=== PATIENT | female | born 1950 | race Caucasian/White ===

== ENCOUNTER 2017-02-24 10:43 | Inpatient (IN) | payer MEDICARE, OTHER ==
[2017-02-24] MEDS ORDERED: SODIUM CHLORIDE 0.9% 1,000 ML IV STA (11:22)
[2017-02-24] MEDS ORDERED: VANCOMYCIN 1,000 MG in SODIUM CHLORIDE 0.9% 250 ML IVPB STA (11:23)
[2017-02-24 11:40] LABS: CH 28.6; HCT 43.9 % (34.0-46.0); HDW 2.33; HGB 14.3 gm/dL (11.4-16.0); Immature Gran Flag Moderate; MCH 29.3 pg (25.0-35.0); MCHC 32.6 g/dL (31.0-37.0); MCV 89.9 fL (80.0-100.0); Mean Platelet Volume 7.5; RBC 4.89 m/uL (3.80-5.40); RDW 14.3 % (11.5-15.5); WBC (Perox) 31.87
[2017-02-24 11:47] LABS: WBC 31.5 k/uL (3.8-10.6)
[2017-02-24 11:50] LABS: ALT 53 U/L (9-52); AST 53 U/L (14-36); Alkaline Phosphatase 181 U/L (38-126); Anion Gap 13 mmol/L; Blood Urea Nitrogen 19 mg/dL (7-17); Calcium 9.3 mg/dL (8.4-10.2); Carbon Dioxide 26 mmol/L (22-30); Chloride 97 mmol/L (98-107); Glucose 106 mg/dL (74-99); Magnesium 1.9 mg/dL (1.6-2.3); Non-African American GFR(MDRD) >60 (>60 ml/min/1.73 sqM); Phosphorous 3.9 mg/dL (2.5-4.5); Potassium 4.6 mmol/L (3.5-5.1); Sodium 136 mmol/L (137-145); Total Bilirubin 0.9 mg/dL (0.2-1.3); Total Protein 7.2 g/dL (6.3-8.2)
--- NOTE | 2017-02-24 11:57 | XR ---
EXAMINATION TYPE: XR chest 1V portable DATE OF EXAM: 02/24/2017 11:46 AM COMPARISON: Prior chest x-ray 07 July 2015 HISTORY: Cough TECHNIQUE: Single frontal view of the chest is obtained. FINDINGS: Similar findings. The heart is enlarged. There is some blunting of the left costophrenic a ngle. No evident pneumothorax. Patient is rotated. IMPRESSION: Similar findings. Cardiomegaly. There may be left lower lobe atelectasis, chronic pleura l reaction, difficult to exclude airspace disease, follow-up PA and lateral chest x-ray may be of prem efit as indicated.
[2017-02-24 12:08] LABS: Add Differential Manual Differential
[2017-02-24 12:11] LABS: INR 1.3 (<1.1); Nucleated Red Blood Cells 0 /100 WBC (0-0); Partial Thromboplastin Time 25.5 sec (22.0-30.0); Prothrombin Time 12.6 sec (9.0-12.0); RBC Morphology Normal; Total Cells Counted 200; Toxic Vacuolation Present
[2017-02-24] MEDS ORDERED: MORPHINE SULFATE 4 MG/ML SYRINGE IVP STA (12:43)
[2017-02-24] MEDS ORDERED: NALOXONE 0.4 MG/ML 1 ML VIAL IV PRN (12:56)
[2017-02-24] MEDS ORDERED: TEMAZEPAM 15 MG CAP PO PRN (12:56)
--- NOTE | 2017-02-24 12:56 | ED ---
Weakness HPI - General Chief complaint: Weakness Stated complaint: Weakness Time Seen by Provider: 02/24/17 11:10 Source: patient, EMS Mode of arrival: EMS - History of Present Illness Initial comments: Patient complains of progressively worsening weakness. She has fevers and chills. She has lightheadedness. She is nonambulatory. She denies any belly or back pain. She has no nausea or vomiting. Nothing makes her symptoms better or worse. She has taken no medications for these. She denies any travel. She denies any injuries. She has no neck pain or stiffness. She has no confusion. - Related Data Home Medications Medication Instructions Recorded Confirmed Baclofen [Baclofen] 10 mg PO TID 04/27/16 02/24/17 Gabapentin [Gabapentin] 600 mg PO TID 04/27/16 02/24/17 Levothyroxine Sodium [Synthroid] 25 mcg PO DAILY 04/27/16 02/24/17 Aspirin 81 mg PO DAILY 02/24/17 02/24/17 Cholecalciferol [Vitamin D3] 1,000 unit PO DAILY 02/24/17 02/24/17 Lactulose 10 gm PO DAILY PRN 02/24/17 02/24/17 Levothyroxine Sodium [Synthroid] 200 mcg PO DAILY 02/24/17 02/24/17 Nortriptyline HCl [Pamelor] 25 mg PO BID 02/24/17 02/24/17 Simvastatin [Zocor] 20 mg PO HS 02/24/17 02/24/17 Trospium Chloride [Sanctura] 20 mg PO BID 02/24/17 02/24/17 clonazePAM [KlonoPIN] 1 - 1.5 mg PO HS 02/24/17 02/24/17 Allergies Allergy/AdvReac Type Severity Reaction Status Date / Time No Known Allergies Allergy Verified 02/24/17 12:03 Review of Systems ROS Statement: Those systems with pertinent positive or pertinent negative responses have been documented in the HPI. ROS Other: All systems not noted in ROS Statement are negative. Past Medical History Past Medical History: Diabetes Mellitus, Deep Vein Thrombosis (DVT), Musculoskeletal Disorder, Thyroid Disorder Additional Past Medical History / Comment(s): HAS MS, USES W/C, UNABLE TO MOVE FROM WAIST DOWN. HX DVT, PE. C/O NEUROPATHY KRYSTIAN FEET. TOLD "BORDERLINE" DM. History of Any Multi-Drug Resistant Organisms: MRSA Date of last positivie culture/infection: 2013 MDRO Source:: UNSURE Past Surgical History: Tubal Ligation Additional Past Surgical History / Comment(s): EYE SURG AGE 6. REPAIR URETER. Past Anesthesia/Blood Transfusion Reactions: No Reported Reaction Past Psychological History: No Psychological Hx Reported Smoking Status: Never smoker Past Alcohol Use History: None Reported Past Drug Use History: None Reported - Past Family History Mother Family Medical History: No Reported History General Exam General appearance: alert, in no apparent distress Head exam: Present: atraumatic, normocephalic, normal inspection Eye exam: Present: normal appearance, PERRL, EOMI. Absent: scleral icterus, conjunctival injection, periorbital swelling ENT exam: Present: normal exam, mucous membranes moist Neck exam: Present: normal inspection. Absent: tenderness, meningismus, lymphadenopathy Cardiovascular Exam: Present: regular rate, normal rhythm, normal heart sounds. Absent: systolic murmur, diastolic murmur, rubs, gallop, clicks GI/Abdominal exam: Present: soft, normal bowel sounds. Absent: distended, tenderness, guarding, rebound, rigid Extremities exam: Present: normal inspection Back exam: Present: CVA tenderness (R) Neurological exam: Present: alert, oriented X3 Psychiatric exam: Present: normal affect Skin exam: Present: warm, dry Course Vital Signs 02/24/17 02/24/17 02/24/17 10:46 11:16 12:35 Temperature 100.4 F H 98.1 F Pulse Rate 110 H 109 H 108 H Respiratory 15 18 18 Rate Blood Pressure 93/45 100/55 112/61 O2 Sat by Pulse 96 97 98 Oximetry EKG Findings - EKG Comments: EKG Findings:: Twelve-lead EKG interpreted by me as showing ventricular 109 bpm , normal MN interval and QRS complex, no ST elevation or depression, interpreted by me as sinus tachycardia. Medical Decision Making - Medical Decision Making Patient presents with fevers, not feeling very well. I will send blood cultures , start antibiotics. Patient will be admitted to the hospital. - Lab Data Result diagrams: 02/24/17 11:14 02/24/17 11:14 Lab Results 02/24/17 02/24/17 02/24/17 Range/Units 11:14 11:14 11:14 WBC 31.5 H* (3.8-10.6) k/uL RBC 4.89 (3.80-5.40) m/uL Hgb 14.3 (11.4-16.0) gm/dL Hct 43.9 (34.0-46.0) % MCV 89.9 (80.0-100.0) fL MCH 29.3 (25.0-35.0) pg MCHC 32.6 (31.0-37.0) g/dL RDW 14.3 (11.5-15.5) % Plt Count 240 (150-450) k/uL Neutrophils % (Manual) 84.0 % Band Neutrophils % 11.0 % Lymphocytes % (Manual) 1.5 % Monocytes % (Manual) 3.0 % Eosinophils % (Manual) 0.5 % Neutrophils # (Manual) 29.9 H (1.3-7.7) k/uL Lymphocytes # (Manual) 0.5 L (1.0-4.8) k/uL Monocytes # (Manual) 0.9 (0-1.0) k/uL Eosinophils # (Manual) 0.2 (0-0.7) k/uL Nucleated RBCs 0 (0-0) /100 WBC Toxic Vacuolation Present RBC Morphology Normal PT (9.0-12.0) sec INR (<1.1) APTT (22.0-30.0) sec Sodium 136 L (137-145) mmol/L Potassium 4.6 (3.5-5.1) mmol/L Chloride 97 L (98-107) mmol/L Carbon Dioxide 26 (22-30) mmol/L Anion Gap 13 mmol/L BUN 19 H (7-17) mg/dL Creatinine 0.85 (0.52-1.04) mg/dL Est GFR (MDRD) Af Amer >60 (>60 ml/min/1.73 sqM) Est GFR (MDRD) Non-Af >60 (>60 ml/min/1.73 sqM) Glucose 106 H (74-99) mg/dL Plasma Lactic Acid Aryan 1.9 (0.7-2.0) mmol/L Calcium 9.3 (8.4-10.2) mg/dL Phosphorus 3.9 (2.5-4.5) mg/dL Magnesium 1.9 (1.6-2.3) mg/dL Total Bilirubin 0.9 (0.2-1.3) mg/dL AST 53 H (14-36) U/L ALT 53 H (9-52) U/L Alkaline Phosphatase 181 H (38-126) U/L Troponin I (0.000-0.034) ng/mL Total Protein 7.2 (6.3-8.2) g/dL Albumin 3.6 (3.5-5.0) g/dL 02/24/17 02/24/17 Range/Units 11:14 11:14 WBC (3.8-10.6) k/uL RBC (3.80-5.40) m/uL Hgb (11.4-16.0) gm/dL Hct (34.0-46.0) % MCV (80.0-100.0) fL MCH (25.0-35.0) pg MCHC (31.0-37.0) g/dL RDW (11.5-15.5) % Plt Count (150-450) k/uL Neutrophils % (Manual) % Band Neutrophils % % Lymphocytes % (Manual) % Monocytes % (Manual) % Eosinophils % (Manual) % Neutrophils # (Manual) (1.3-7.7) k/uL Lymphocytes # (Manual) (1.0-4.8) k/uL Monocytes # (Manual) (0-1.0) k/uL Eosinophils # (Manual) (0-0.7) k/uL Nucleated RBCs (0-0) /100 WBC Toxic Vacuolation RBC Morphology PT 12.6 H (9.0-12.0) sec INR 1.3 (<1.1) APTT 25.5 (22.0-30.0) sec Sodium (137-145) mmol/L Potassium (3.5-5.1) mmol/L Chloride (98-107) mmol/L Carbon Dioxide (22-30) mmol/L Anion Gap mmol/L BUN (7-17) mg/dL Creatinine (0.52-1.04) mg/dL Est GFR (MDRD) Af Amer (>60 ml/min/1.73 sqM) Est GFR (MDRD) Non-Af (>60 ml/min/1.73 sqM) Glucose (74-99) mg/dL Plasma Lactic Acid Aryan (0.7-2.0) mmol/L Calcium (8.4-10.2) mg/dL Phosphorus (2.5-4.5) mg/dL Magnesium (1.6-2.3) mg/dL Total Bilirubin (0.2-1.3) mg/dL AST (14-36) U/L ALT (9-52) U/L Alkaline Phosphatase (38-126) U/L Troponin I <0.012 (0.000-0.034) ng/mL Total Protein (6.3-8.2) g/dL Albumin (3.5-5.0) g/dL Disposition Clinical Impression: Sepsis Disposition: ADMITTED IP TO THIS HOSP Condition: Serious Time of Disposition: 12:56
[2017-02-24 13:09] LABS: Appearance,Urine Turbid (Clear); Bacteria,Urine Few /hpf; Bilirubin,Urine Negative (Negative); Glucose,Urine (UA) Negative (Negative); Ketones,Urine 1+ (Negative); Leukocyte Esterase,Urine Large (Negative); Mucus,Urine Few /hpf; Nitrite,Urine Positive (Negative); Protein,Urine Trace (Negative); RBC,Urine 24 /hpf (0-5); Squamous Epithelial Cell,Urine 1 /hpf (0-4); UA Billing (MACRO vs. MICRO) MICRO; Urobilinogen,Urine <2.0 mg/dL (<2.0); WBC,Urine >182 /hpf (0-5)
[2017-02-24] MEDS: MORPHINE SULFATE 4 MG/ML SYRINGE IV PRN ×2 (14:51→21:34)
[2017-02-24] MEDS: BACLOFEN 10 MG TAB PO SCH ×2 (14:51→21:05)
[2017-02-24] MEDS: GABAPENTIN 300 MG CAP PO SCH ×2 (14:51→21:05)
[2017-02-24 16:02] VITALS: BMI 50.7
--- NOTE | 2017-02-24 16:56 | P.HPIM ---
History of Present Illness H&P Date: 02/24/17 Chief Complaint: Sepsis, UTI, left lower lobe pneumonia, MS with worsening symptoms 66-year-old female [address] Patterson[address] patient with history of obesity, multiple sclerosis with debility, recurrent kidney stone,'s post suprapubic catheter done by Dr. Gonsales last year, history of hypothyroidism and borderline diabetes who presented to the emergency department today 02/24/2017 complaining of fever chills severe generalized weakness and not feeling well with slightly bit worsening discomfort in the left upper quadrant area with significant shortness of breath with deep inspiration. Workup in the emergency room showed chest x-ray consistent with finding of consolidation and atelectasis in the left base, also urine test was slightly bit positive and surprisingly her white blood cell were over 32,000. Patient was diagnosed with sepsis/UTI and pneumonia with start gram-negative coverage and admit patient to the hospital with above problem. Review of Systems Constitutional: Reports chronic pain, Reports fatigue, Reports lethargy, Reports poor appetite, Reports weight gain, Denies as per HPI, Denies chills, Denies chronic headaches, Denies daytime sleepiness, Denies fever, Denies malaise, Denies night sweats, Denies sweats, Denies weakness, Denies weight loss Eyes: bilateral as per HPI, bilateral blurred vision Ears: bilateral: decreased hearing Ears, nose, mouth and throat: Reports ant. neck pain, Reports nasal congestion, Reports nasal discharge, Reports sinus pressure, Reports swelling in mouth, Denies as per HPI, Denies bleeding gums, Denies dental pain, Denies dysphagia, Denies epistaxis, Denies headache, Denies hoarseness, Denies mouth pain, Denies neck fullness/pressure, Denies neck lump, Denies nose pain, Denies odynophagia, Denies post-nasal drip, Denies sinus pain, Denies swelling in throat, Denies sore throat, Denies vertigo, Denies voice changes Breasts: bilateral: as per HPI Cardiovascular: Reports chest pain, Reports dyspnea on exertion, Reports edema, Reports irregular heart beat, Reports leg edema, Reports orthopnea, Reports palpitations, Reports shortness of breath, Denies as per HPI, Denies claudication, Denies decreased exercise tolerance, Denies high blood pressure, Denies lightheadedness, Denies paroxysmal nocturnal dyspnea, Denies phlebitis, Denies rapid heart beat, Denies syncope Respiratory: Reports congestion, Reports cough, Reports dyspnea, Denies as per HPI, Denies cough with sputum, Denies excessive sputum, Denies hemoptysis, Denies home oxygen, Denies pain, Denies pain on inspiration, Denies pleurisy, Denies respiratory infections, Denies sleep apnea, Denies snoring, Denies wheezing Gastrointestinal: Reports abdominal pain, Reports bloating, Reports constipation , Reports dyspepsia, Reports indigestion, Reports nausea, Denies as per HPI, Denies belching, Denies BRBPR, Denies change in bowel habits, Denies coffee ground emesis, Denies diarrhea, Denies early satiety, Denies excessive gas, Denies heartburn, Denies hematemesis, Denies hematochezia, Denies jaundice, Denies lactose intolerance, Denies loss of appetite, Denies melena, Denies vomiting Genitourinary: Reports dysuria, Reports kidney stones, Reports pelvic pain, Reports stress incontinence, Reports urgency, Reports urinary frequency, Denies as per HPI, Denies abnormal vaginal bleeding, Denies decreased libido, Denies difficulty conceiving, Denies difficulty voiding, Denies dysmenorrhea, Denies dyspareunia, Denies flank pain, Denies genital sores, Denies hematuria, Denies hot flashes, Denies incomplete emptying, Denies menorrhagia, Denies mixed incontinence, Denies nocturia, Denies post void dribbling, Denies , Denies prolapse symptoms, Denies urge incontinence, Denies vaginal discharge, Denies vaginal dryness, Denies vaginal itching, Denies vaginal odor Musculoskeletal: Reports arm numbness/tingling, Reports loss of height, Reports low back pain, Reports muscle cramps, Reports myalgias, Reports neck pain, Denies as per HPI, Denies atrophy, Denies fractures, Denies frequent falls, Denies gait dysfunction, Denies hot joints, Denies leg numbness/tingling, Denies limitation of motion, Denies morning stiffness, Denies muscle weakness, Denies neck stiffness, Denies prior amputations, Denies redness of joints, Denies shooting arm pain, Denies shooting leg pain Musculoskeletal: bilateral: ankle pain, ankle stiffness Integumentary: Reports pruritus, Reports rash, Reports sores, Denies as per HPI , Denies acne, Denies boils, Denies brittle nails, Denies change in hair/nails, Denies color changes, Denies darkening of skin, Denies depigmentation, Denies dryness, Denies foot/leg ulcers, Denies growths, Denies hirsutism, Denies lesions, Denies onychomycosis, Denies striae, Denies unusual bruising, Denies wounds Neurological: Reports balance difficulties, Reports burning pain, Reports confusion, Reports gait dysfunction, Reports hearing difficulties, Reports lack of coordination, Reports memory loss, Reports motor disturbance, Reports numbness, Reports paresthesias, Reports spasticity, Reports tingling, Reports transient paralysis, Reports tremors, Reports weakness, Denies as per HPI, Denies aphasia, Denies ataxia, Denies change in mentation, Denies change in smell/taste, Denies change in speech, Denies convulsions, Denies double vision, Denies head injury, Denies headaches, Denies loss of vision, Denies migraines, Denies paralysis, Denies seizures, Denies sensory deficit, Denies syncope, Denies tic, Denies vertigo, Denies visual changes Psychiatric: Reports anhedonia, Reports anxiety, Reports depression, Reports mood swings, Reports sadness/tearfulness, Denies as per HPI, Denies anxiety attacks, Denies change in appetite, Denies change in libido, Denies change in sleep habits, Denies confusion, Denies difficulty concentrating, Denies disorientation, Denies hallucinations, Denies hopelessness, Denies hypersomnia, Denies insomnia, Denies irritability, Denies memory loss, Denies paranoia, Denies sleep disturbances, Denies suicidal ideation Endocrine: Reports cold intolerance, Reports fatigue, Reports flushing, Reports nocturia, Reports palpitations, Denies as per HPI, Denies deepening of the voice , Denies excessive sweating, Denies excessive thirst, Denies heat intolerance, Denies high blood sugars, Denies increase in ring/shoe/hat size, Denies low blood sugars, Denies polydipsia, Denies polyphagia, Denies polyuria, Denies proptosis, Denies recent glucocorticoid use, Denies thyroid mass, Denies weight change Hematologic/Lymphatic: Reports easy bruising, Denies as per HPI, Denies easy bleeding, Denies lymphadenopathy, Denies lymphedema, Denies thrombophilia Allergic/Immunologic: Reports allergic rhinitis, Denies as per HPI, Denies anaphylaxis, Denies angioedema, Denies gluten intolerance, Denies persistent infections, Denies seasonal allergies, Denies urticaria, Denies wheezing Past Medical History Past Medical History: Diabetes Mellitus, Deep Vein Thrombosis (DVT), Hyperlipidemia, Hypertension, Musculoskeletal Disorder, Neurologic Disorder, Thyroid Disorder Additional Past Medical History / Comment(s): Multiple sclerosis (diagnosed late ), L sided weakness with L hand contracture and unable to move bilateral lower extremities (tita lift to wheelchair), 2007 suprapubic catheter , currently being tx for bilateral buttock decubs with meihoney and dressings, UTIs, "border line DM", hypothyroid, bladder stones, bilateral cataracts. History of Any Multi-Drug Resistant Organisms: MRSA Date of last positivie culture/infection: 2011 MDRO Source:: Urine Past Surgical History: Bladder Surgery, Orthopedic Surgery, Tubal Ligation Additional Past Surgical History / Comment(s): EYE SURG AGE 6 for strabismus, ureteral surgery, cysto/lithotripsey, suprapubic catheter insertion, bilateral carpal releases, L leg eric d/t fx, L thumb sx, benign lesion removed from nose. Past Anesthesia/Blood Transfusion Reactions: No Reported Reaction Past Psychological History: No Psychological Hx Reported Smoking Status: Never smoker Past Alcohol Use History: None Reported Past Drug Use History: None Reported - Past Family History Mother Family Medical History: Hypertension Father Family Medical History: Coronary Artery Disease (CAD), Diabetes Mellitus Medications and Allergies Home Medications Medication Instructions Recorded Confirmed Type Baclofen [Baclofen] 10 mg PO TID 04/27/16 02/24/17 History Gabapentin [Gabapentin] 600 mg PO TID 04/27/16 02/24/17 History Levothyroxine Sodium [Synthroid] 25 mcg PO DAILY 04/27/16 02/24/17 History Aspirin 81 mg PO DAILY 02/24/17 02/24/17 History Cholecalciferol [Vitamin D3] 1,000 unit PO DAILY 02/24/17 02/24/17 History Lactulose 10 gm PO DAILY PRN 02/24/17 02/24/17 History Levothyroxine Sodium [Synthroid] 200 mcg PO DAILY 02/24/17 02/24/17 History Nortriptyline HCl [Pamelor] 25 mg PO BID 02/24/17 02/24/17 History Simvastatin [Zocor] 20 mg PO HS 02/24/17 02/24/17 History Trospium Chloride [Sanctura] 20 mg PO BID 02/24/17 02/24/17 History clonazePAM [KlonoPIN] 1 - 1.5 mg PO HS 02/24/17 02/24/17 History Allergies Allergy/AdvReac Type Severity Reaction Status Date / Time No Known Allergies Allergy Verified 02/24/17 12:03 Physical Exam Vitals: Vital Signs Pulse Resp BP Pulse Ox 02/24/17 13:09 111 H 18 111/59 98 - Constitutional General appearance: no average body habitus, cooperative, disheveled, no mild distress, morbidly obese, no acute distress, no obese, no severe distress, no thin - EENT Eyes: no abnormal pupil, no anicteric sclerae, no disc margins sharp, no edentulous, no EOMI, no PERRLA, no fundus normal, no photophobia, no dentition normal, no poor dentition, no ptosis, scleral icterus, normal appearance ENT: hard of hearing, no hearing grossly normal, no NA/AT, normal oropharynx, no other, pharyngeal erythema, no thrush, no tonsillar exudates, no tonsillar swelling Ears: bilateral: normal, bulging - Neck Neck: no lymphadenopathy, normal ROM, no other, no rigidity, no stridor, no thyromegaly Carotids: bilateral: upstroke normal, upstroke delayed Thyroid: bilateral: normal size, enlarged - Respiratory Respiratory: left: rales, bilateral: CTA, diminished, dullness, wheezing - Cardiovascular Rhythm: regular Heart sounds: normal: S1, S2 Abnormal Heart Sounds: systolic murmur, S3 Gallop - Gastrointestinal General gastrointestinal: no absent bowel sounds, decreased bowel sounds, distended, no hepatomegaly, no hyperactive bowel sounds, no normal bowel sounds , no organomegaly, no rigid, scaphoid, soft, no splenomegaly, no tenderness, no umbilical hernia, no ventral hernia - Integumentary Integumentary: no calor, no cellulitis, no cyanotic, decreased turgor, no flushed, no jaundiced, normal, no normal turgor, pale, rash, no ulcer - Neurologic She is alert oriented had significant weakness in lower extremity mild contraction in the upper extremity with generalized weakness strength is only 2 out of 5. Not been able to ambulate and walk Neurologic: CNII-XII intact - Musculoskeletal Severe weakness in the lower extremity the upper extremity is less weakness more in the right than the left. - Psychiatric Psychiatric: appropriate affect Results CBC & Chem 7: 02/24/17 11:14 02/24/17 11:14 Thrombosis Risk Factor Assmnt - DVT/VTE Prophylaxis DVT/VTE Prophylaxis: Pharmacologic Prophylaxis ordered, Mechanical Prophylaxis ordered - Choose All That Apply Any of the Below Risk Factors Present?: Yes Each Factor Represents 1 point: Medical pt on bed rest, Obesity (BMI >25) Other Risk Factors: Yes Each Risk Factor Represents 2 Points: Age 61-74 years Each Risk Factor Represents 3 Points: History of DVT/PE Other congenital or acquired thrombophilia - If yes, enter type in comment: No Thrombosis Risk Factor Assessment Total Risk Factor Score: 7 Thrombosis Risk Factor Assessment Level: High Risk Assessment and Plan Plan: 1 sepsis: Source most likely urinary tract infection and pneumonia will cover patient with gram-negative coverage product like Levaquin with or without Zosyn. 2 left lower lobe pneumonia: Patient be on antibiotics, continue updraft treatment, continue O2. 3 UTI/sepsis: Patient had suprapubic catheter will do empiric antibiotic with Levaquin awaiting for the final culture before changing antibiotics. 4 severe leukocytosis: Mostly leukemoid reaction secondary to sepsis and infection try to treat underlying disease and repeat CBC daily in the next 3 days. 5 MS: Patient has been seen urology regular basis she had significant weakness in lower extremity continue patient on baclofen along with gabapentin. 6 hypothyroidism: Continue patient on levothyroxine. 7 hyperlipidemia: Patient will continue on simvastatin. 8 restless leg syndrome: Remain on clonazepam. 9 DVT prophylaxis: Patient be on heparin subcutaneous. 10 GI prophylaxis: Patient will be on Pepcid daily. CODE STATUS: Full code. Expectation from this admission: Patient in the hospital for more than 2 nights.
[2017-02-24] MEDS: ATORVASTATIN 10 MG TAB PO SCH (20:54)
[2017-02-24] MEDS: NORTRIPTYLINE 25 MG CAP PO SCH (20:54)
[2017-02-24] MEDS: ACETAMINOPHEN TAB 325 MG TAB PO PRN (22:37)
[2017-02-24] MEDS: LEVOFLOXACIN 500MG-D5W PMX 500 MG in DEXTROSE/WATER 1 100ML.BAG IVPB SCH (22:37)
[2017-02-25] MEDS: LEVOTHYROXINE 100 MCG TAB PO SCH (05:34)
[2017-02-25] MEDS: LEVOTHYROXINE 25 MCG TAB PO SCH (05:34)
[2017-02-25 07:23] LABS: Glucose,Whole Blood 91 mg/dL (75-99)
[2017-02-25] MEDS: GABAPENTIN 300 MG CAP PO SCH ×3 (08:29→21:02)
[2017-02-25] MEDS: NORTRIPTYLINE 25 MG CAP PO SCH ×2 (08:29→21:02)
[2017-02-25] MEDS: ASPIRIN 81 MG CHEW PO SCH (08:29)
[2017-02-25] MEDS: BACLOFEN 10 MG TAB PO SCH ×4 (08:31→22:20)
[2017-02-25] MEDS: ACETAMINOPHEN TAB 325 MG TAB PO PRN (09:46)
--- NOTE | 2017-02-25 10:46 | CDI ---
In responding to this query, please exercise your independent professional judgment. The [facility] Coding Staff and Clinical Documentation Specialists appreciate your assistance in clarifying documentation, maintaining compliance with coding guidelines, accurately documenting patients condition and capturing severity of illness. The fact that a question is asked does not imply that any particular answer is desired or expected. Communication forms are a method of clarifying documentation and are not made part of the Legal Health Record. Thank you in advance for your clarification. Last Revision, September 2015 Jyothi Rosales [address] [facility] [place] [address] Documentation Clarification Form Date: 02/25/2017 10:33:00 AM From: Elan Clinton, RN, BSN, CDI Admit Date: 02/24/2017 12:58:00 PM Patient Name: Maribel Leong Visit Number: [id number] Dr. Shakeel Israel: A pressure ulcer was documented in the nursing documentation. History/Risk Factors: 66 yo female with a history of MS, diabetes and morbid obesity Clinical Indicators: Per nursing, patient has a stage II pressure of the left upper posterior thigh Wound description: 0.1x1 cm, 51-75% granulation amount with distinct wound margins. Treatment: Hydrocolloid dressing changes In your professional opinion, can you please clarify the diagnosis, location, laterality and whether present on admission (POA): Elements for accurate and compliant documentation of an ulcer: * The location/laterality of the ulcer * Etiology (decubitus/pressure, diabetic, PVD) * If the ulcer was present at admission (POA) or occurred after admission Please document in your progress notes and discharge summary in order to capture severity of illness and risk of mortality. Include clinical findings that support your diagnosis. FYI: Press F11 to launch patient chart. Place X here if this finding has no clinical significance, is not applicable or if you are not able to provide any additional documentation. MTDD
--- NOTE | 2017-02-25 10:56 | CDI ---
In responding to this query, please exercise your independent professional judgment. The [facility] Coding Staff and Clinical Documentation Specialists appreciate your assistance in clarifying documentation, maintaining compliance with coding guidelines, accurately documenting patients condition and capturing severity of illness. The fact that a question is asked does not imply that any particular answer is desired or expected. Communication forms are a method of clarifying documentation and are not made part of the Legal Health Record. Thank you in advance for your clarification. Last Revision, September 2015 Jyothi Rosales [address] [facility] [place] [address] Documentation Clarification Form Date: 02/25/2017 10:48:00 AM From: Elan Clinton, RN, BSN, CDI Admit Date: 02/24/2017 12:58:00 PM Patient Name: Maribel Leong Visit Number: [id number] Dr. Shakeel Israel: A diagnosis of UTI has been documented in the ED impressions and H&P. History/Risk factors: 66 yo female with a history of MS, morbid obesity and frequent kidneys stones, currently being treated for sepsis with PNA and UTI Per documentation in the nursing notes, this patient was admitted with a suprapubic catheter. Clinical Indicators: Urinalysis: +nitrates, large leuk esterase, >182 WBC, few WBC clumps, few bacteria, "turbid yellow" in appearance Urine culture: pending Lab results: WBC: 31.5 Treatment: Vanco, Levaquin, 1L fluid bolus In your professional opinion, can you please clarify the etiology of the UTI, if known? Suprapubic catheter UTI not related to catheter/urostomy Other condition, please specify Unable to determine If an infective organism is present, please specify cause and effect relationship if applicable. Please document in your progress notes and discharge summary in order to capture severity of illness and risk of mortality. Include clinical findings that support your diagnosis. FYI: Press F11 to launch patient chart Place X here if this finding has no clinical significance, is not applicable or if you are not able to provide any additional documentation. SID
[2017-02-25] MEDS: CHOLECALCIFEROL 1,000 UNIT TAB PO SCH (11:09)
[2017-02-25] MEDS: SODIUM CHLORIDE 0.9% 1,000 ML IV SCH (11:15)
[2017-02-25 11:34] LABS: Basophils # (A) 0.1 k/uL (0-0.2); Basophils % (A) 0 %; CH 28.6; CHCM 32.1; Eosinophils # (A) 0.1 k/uL (0-0.7); Eosinophils % (A) 1 %; HCT 37.3 % (34.0-46.0); HDW 2.39; HGB 11.9 gm/dL (11.4-16.0); Luc # (Auto) 0.28; Luc % (Auto) 2; Lymphocytes # (A) 0.5 k/uL (1.0-4.8); Lymphocytes % (A) 3 %; MCH 28.7 pg (25.0-35.0); MCV 89.7 fL (80.0-100.0); Mean Platelet Volume 7.9; Monocytes # (A) 0.7 k/uL (0-1.0); Monocytes % (A) 4 %; Neutrophils # (A) 15.4 k/uL (1.3-7.7); Neutrophils % (A) 90 %; RBC 4.16 m/uL (3.80-5.40); RDW 14.3 % (11.5-15.5); WBC (Perox) 18.56
[2017-02-25 11:48] LABS: ALT 38 U/L (9-52); AST 34 U/L (14-36); Alkaline Phosphatase 140 U/L (38-126); Anion Gap 10 mmol/L; Blood Urea Nitrogen 19 mg/dL (7-17); Calcium 8.2 mg/dL (8.4-10.2); Carbon Dioxide 23 mmol/L (22-30); Chloride 101 mmol/L (98-107); Glucose 147 mg/dL (74-99); Non-African American GFR(MDRD) >60 (>60 ml/min/1.73 sqM); Potassium 3.6 mmol/L (3.5-5.1); Sodium 134 mmol/L (137-145); Total Bilirubin 0.6 mg/dL (0.2-1.3); Total Protein 5.6 g/dL (6.3-8.2)
[2017-02-25] MEDS: LACTULOSE 20 GM/30 ML CUP PO PRN (15:07)
--- NOTE | 2017-02-25 15:44 | P.CONS ---
History of Present Illness - Reason for Consult Consult date: 02/25/17 Sepsis, UTI, pneumonia - History of Present Illness This is a 66-year-old female with a past medical history significant for as. She had a suprapubic catheter placed by Dr. Gonsales for neurogenic bladder. Patient presented to [facility] emergency center due to increasing weakness, fever chills, lightheadedness. She had leukocytosis of 31.5 and temperature max of 101.2. Urinalysis was turbid, blood moderate, nitrate positive, leukoesterase large, WBCs greater than 182, WBC clumps few. Troponin was negative. Albumin 3.6. Liver function tests mildly elevated with AST of 53, ALT 53, alkaline phosphatase 181. Urine culture is in progress and blood culture is showing gram-negative bacilli. Chest x-ray shows cardiomegaly with left lower lobe atelectasis, chronic pleural reaction, difficult to exclude airspace disease. [facility] and was started on IV antibiotics in the form of Levaquin and she received 1 dose of vancomycin. She continues to be afebrile and repeat blood cultures were obtained. She also has change in mental status worse from yesterday. History is being obtained from the patient's chart and nursing. Patient also presented to the hospital with a stage II decubitus ulcer to the left buttocks and left gluteal fold. Review of Systems ROS unobtainable: due to mental status Constitutional: Reports chills, Reports fever Past Medical History Past Medical History: Diabetes Mellitus, Deep Vein Thrombosis (DVT), Hyperlipidemia, Hypertension, Musculoskeletal Disorder, Neurologic Disorder, Thyroid Disorder Additional Past Medical History / Comment(s): Multiple sclerosis (diagnosed late ), L sided weakness with L hand contracture and unable to move bilateral lower extremities (tita lift to wheelchair), 2007 suprapubic catheter , currently being tx for bilateral buttock decubs with meihoney and dressings, UTIs, "border line DM", hypothyroid, bladder stones, bilateral cataracts. History of Any Multi-Drug Resistant Organisms: MRSA Year Discovered:: 2011 MDRO Source:: Urine Past Surgical History: Bladder Surgery, Orthopedic Surgery, Tubal Ligation Additional Past Surgical History / Comment(s): EYE SURG AGE 6 for strabismus, ureteral surgery, cysto/lithotripsey, suprapubic catheter insertion, bilateral carpal releases, L leg eric d/t fx, L thumb sx, benign lesion removed from nose. Past Anesthesia/Blood Transfusion Reactions: No Reported Reaction Past Psychological History: No Psychological Hx Reported Smoking Status: Never smoker Past Alcohol Use History: None Reported Past Drug Use History: None Reported - Past Family History Mother Family Medical History: Hypertension Father Family Medical History: Coronary Artery Disease (CAD), Diabetes Mellitus Medications and Allergies Home Medications Medication Instructions Recorded Confirmed Type Baclofen [Baclofen] 10 mg PO TID 04/27/16 02/24/17 History Gabapentin [Gabapentin] 600 mg PO TID 04/27/16 02/24/17 History Levothyroxine Sodium [Synthroid] 25 mcg PO DAILY 04/27/16 02/24/17 History Aspirin 81 mg PO DAILY 02/24/17 02/24/17 History Cholecalciferol [Vitamin D3] 1,000 unit PO DAILY 02/24/17 02/24/17 History Lactulose 10 gm PO DAILY PRN 02/24/17 02/24/17 History Levothyroxine Sodium [Synthroid] 200 mcg PO DAILY 02/24/17 02/24/17 History Nortriptyline HCl [Pamelor] 25 mg PO BID 02/24/17 02/24/17 History Simvastatin [Zocor] 20 mg PO HS 02/24/17 02/24/17 History Trospium Chloride [Sanctura] 20 mg PO BID 02/24/17 02/24/17 History clonazePAM [KlonoPIN] 1 - 1.5 mg PO HS 02/24/17 02/24/17 History Allergies Allergy/AdvReac Type Severity Reaction Status Date / Time No Known Allergies Allergy Verified 02/24/17 12:03 Physical Exam Vitals: Vital Signs Temp Pulse Resp BP Pulse Ox 02/25/17 11:08 99.0 F 02/25/17 09:34 101.2 F H 02/25/17 08:00 20 02/25/17 07:00 99.1 F 133 H 20 138/72 93 L 02/24/17 23:46 99 F 90 02/24/17 21:40 101.2 F H 101 H 18 138/72 95 Intake and Output 02/25/17 02/25/17 02/25/17 06:59 14:59 22:59 Intake Total 200 Output Total 700 700 Balance -500 -700 Intake: Oral 200 Output: Urine 700 700 Other: Weight 136.078 kg Patient Weight 02/26/17 06:59 Weight 136.078 kg Gen: This is a 66-year-old morbidly obese female. She is sleeping in bed but arouses to verbal stimuli. She is quite confused today. HEENT: Head is atraumatic, normocephalic. Pupils equal, round. Sclerae is anicteric. NECK: Supple. No JVD. No lymphadenopathy. No thyromegaly. LUNGS: Diminished bilaterally. No intercostal retractions. HEART: Regular rate and rhythm. Systolic murmur. ABDOMEN: Soft. Bowel sounds are present. No masses. No tenderness. Suprapubic catheter in place draining clear urine with noted sediment. Stage II decubitus ulcer to the left buttocks and left gluteal fold. EXTREMITIES: 1+ pedal edema. No calf tenderness. NEUROLOGICAL: Patient is awake, alert and oriented x1. Significant weakness to the upper and lower extremities. Minimal movement of the right arm. Results Results: Laboratory Results WBC 17.0 k/uL (3.8-10.6) H 02/25/17 11:22 RBC 4.16 m/uL (3.80-5.40) 02/25/17 11:22 Hgb 11.9 gm/dL (11.4-16.0) 02/25/17 11:22 Hct 37.3 % (34.0-46.0) 02/25/17 11:22 MCV 89.7 fL (80.0-100.0) 02/25/17 11:22 MCH 28.7 pg (25.0-35.0) 02/25/17 11:22 MCHC 32.0 g/dL (31.0-37.0) 02/25/17 11:22 RDW 14.3 % (11.5-15.5) 02/25/17 11:22 Plt Count 171 k/uL (150-450) 02/25/17 11:22 Neutrophils % 90 % 02/25/17 11:22 Neutrophils % (Manual) 84.0 % 02/24/17 11:14 Band Neutrophils % 11.0 % 02/24/17 11:14 Lymphocytes % 3 % 02/25/17 11:22 Lymphocytes % (Manual) 1.5 % 02/24/17 11:14 Monocytes % 4 % 02/25/17 11:22 Monocytes % (Manual) 3.0 % 02/24/17 11:14 Eosinophils % 1 % 02/25/17 11:22 Eosinophils % (Manual) 0.5 % 02/24/17 11:14 Basophils % 0 % 02/25/17 11:22 Neutrophils # 15.4 k/uL (1.3-7.7) H 02/25/17 11:22 Neutrophils # (Manual) 29.9 k/uL (1.3-7.7) H 02/24/17 11:14 Lymphocytes # 0.5 k/uL (1.0-4.8) L 02/25/17 11:22 Lymphocytes # (Manual) 0.5 k/uL (1.0-4.8) L 02/24/17 11:14 Monocytes # 0.7 k/uL (0-1.0) 02/25/17 11:22 Monocytes # (Manual) 0.9 k/uL (0-1.0) 02/24/17 11:14 Eosinophils # 0.1 k/uL (0-0.7) 02/25/17 11:22 Eosinophils # (Manual) 0.2 k/uL (0-0.7) 02/24/17 11:14 Basophils # 0.1 k/uL (0-0.2) 02/25/17 11:22 Nucleated RBCs 0 /100 WBC (0-0) 02/24/17 11:14 Toxic Vacuolation Present 02/24/17 11:14 RBC Morphology Normal 02/24/17 11:14 PT 12.6 sec (9.0-12.0) H 02/24/17 11:14 INR 1.3 (<1.1) 02/24/17 11:14 APTT 25.5 sec (22.0-30.0) 02/24/17 11:14 Sodium 134 mmol/L (137-145) L 02/25/17 11:22 Potassium 3.6 mmol/L (3.5-5.1) 02/25/17 11:22 Chloride 101 mmol/L (98-107) 02/25/17 11:22 Carbon Dioxide 23 mmol/L (22-30) 02/25/17 11:22 Anion Gap 10 mmol/L 02/25/17 11:22 BUN 19 mg/dL (7-17) H 02/25/17 11:22 Creatinine 0.84 mg/dL (0.52-1.04) 02/25/17 11:22 Est GFR (MDRD) Af Amer >60 (>60 ml/min/1.73 sqM) 02/25/17 11:22 Est GFR (MDRD) Non-Af >60 (>60 ml/min/1.73 sqM) 02/25/17 11:22 Glucose 147 mg/dL (74-99) H 02/25/17 11:22 POC Glucose (mg/dL) 91 mg/dL (75-99) 02/25/17 07:21 POC Glu Circular Shear Operator ID [place] 02/25/17 07:21 Plasma Lactic Acid Aryan 1.9 mmol/L (0.7-2.0) 02/24/17 11:14 Calcium 8.2 mg/dL (8.4-10.2) L 02/25/17 11:22 Phosphorus 3.9 mg/dL (2.5-4.5) 02/24/17 11:14 Magnesium 1.9 mg/dL (1.6-2.3) 02/24/17 11:14 Total Bilirubin 0.6 mg/dL (0.2-1.3) 02/25/17 11:22 AST 34 U/L (14-36) 02/25/17 11:22 ALT 38 U/L (9-52) 02/25/17 11:22 Alkaline Phosphatase 140 U/L (38-126) H 02/25/17 11:22 Troponin I <0.012 ng/mL (0.000-0.034) 02/24/17 11:14 Total Protein 5.6 g/dL (6.3-8.2) L 02/25/17 11:22 Albumin 2.5 g/dL (3.5-5.0) L 02/25/17 11:22 Urine Color Yellow 02/24/17 12:50 Urine Appearance Turbid (Clear) H 02/24/17 12:50 Urine pH 5.0 (5.0-8.0) 02/24/17 12:50 Ur Specific [place] 1.010 (1.001-1.035) 02/24/17 12:50 Urine Protein Trace (Negative) H 02/24/17 12:50 Urine Glucose (UA) Negative (Negative) 02/24/17 12:50 Urine Ketones 1+ (Negative) H 02/24/17 12:50 Urine Blood Moderate (Negative) H 02/24/17 12:50 Urine Nitrite Positive (Negative) H 02/24/17 12:50 Urine Bilirubin Negative (Negative) 02/24/17 12:50 Urine Urobilinogen <2.0 mg/dL (<2.0) 02/24/17 12:50 Ur Leukocyte Esterase Large (Negative) H 02/24/17 12:50 Urine RBC 24 /hpf (0-5) H 02/24/17 12:50 Urine WBC >182 /hpf (0-5) H 02/24/17 12:50 Urine WBC Clumps Few /hpf (None) H 02/24/17 12:50 Ur Squamous Epith Cells 1 /hpf (0-4) 02/24/17 12:50 Urine Bacteria Few /hpf (None) H 02/24/17 12:50 Urine Mucus Few /hpf (None) H 02/24/17 12:50 CBC & Chem 7: 02/25/17 11:22 02/25/17 11:22 Labs: Abnormal Lab Results - Last 24 Hours (Table) 02/25/17 02/25/17 Range/Units 11:22 11:22 WBC 17.0 H (3.8-10.6) k/uL Neutrophils # 15.4 H (1.3-7.7) k/uL Lymphocytes # 0.5 L (1.0-4.8) k/uL Sodium 134 L (137-145) mmol/L BUN 19 H (7-17) mg/dL Glucose 147 H (74-99) mg/dL Calcium 8.2 L (8.4-10.2) mg/dL Alkaline Phosphatase 140 H (38-126) U/L Total Protein 5.6 L (6.3-8.2) g/dL Albumin 2.5 L (3.5-5.0) g/dL Assessment and Plan Plan: This is a 66-year-old female who presented to the hospital with sepsis , septicemia with gram-negative bacteremia most likely due to suprapubic catheter associated urinary tract infection with concern for possible pneumonia. She also presented with decubitus ulcer to the left buttocks and left gluteal fold. Local wound care will be addressed. Patient is currently on Levaquin. Urine culture is in process. Repeat blood cultures were obtained today. Continue supportive care. Further recommendations as patient progresses. The above dictated assessment and findings were discussed with Dr. Hargrove. The impression and plan of care have been directed as dictated. Mónica Smith nurse practitioner acting as scribe for Dr. Hargrove. Time with Patient: Greater than 30
--- NOTE | 2017-02-25 16:09 | P.PN ---
Subjective 66-year-old female [address] Patterson[address] patient with history of obesity, multiple sclerosis with debility, recurrent kidney stone,'s post suprapubic catheter done by Dr. Gonsales last year, history of hypothyroidism and borderline diabetes who presented to the emergency department today 02/24/2017 complaining of fever chills severe generalized weakness and not feeling well with slightly bit worsening discomfort in the left upper quadrant area with significant shortness of breath with deep inspiration. Workup in the emergency room showed chest x-ray consistent with finding of consolidation and atelectasis in the left base, also urine test was slightly bit positive and surprisingly her white blood cell were over 32,000. Patient was diagnosed with sepsis/UTI and pneumonia with start gram-negative coverage and admit patient to the hospital with above problem. 02/25: Patient has had continued fevers of 101.2. Repeat blood cultures have been obtained. Initial blood cultures are showing gram-negative bacteremia. Urine culture is in process. Consult requested with Dr. Hargrove. Patient's mental status is a bit worse from yesterday she has some increased confusion. White count is improved to 17.0 Objective - Vital Signs Vital signs: Vital Signs Temp 101.2 F H 02/25/17 09:34 Pulse 133 H 02/25/17 07:00 Resp 20 02/25/17 08:00 BP 138/72 02/25/17 07:00 Pulse Ox 93 L 02/25/17 07:00 Intake & Output 02/24/17 02/25/17 02/25/17 18:59 06:59 18:59 Intake Total 400 Output Total 350 700 700 Balance -350 -300 -700 Weight 136.078 kg 136.078 kg Intake: Oral 400 Output: Urine 350 700 700 - Exam General appearance: no average body habitus, cooperative, disheveled, no mild distress, morbidly obese, no acute distress, no obese, no severe distress, no thin - EENT Eyes: no abnormal pupil, no anicteric sclerae, no disc margins sharp, no edentulous, no EOMI, no PERRLA, no fundus normal, no photophobia, no dentition normal, no poor dentition, no ptosis, scleral icterus, normal appearance ENT: hard of hearing, no hearing grossly normal, no NA/AT, normal oropharynx, no other, pharyngeal erythema, no thrush, no tonsillar exudates, no tonsillar swelling Ears: bilateral: normal, bulging - Neck Neck: no lymphadenopathy, normal ROM, no other, no rigidity, no stridor, no thyromegaly Carotids: bilateral: upstroke normal, upstroke delayed Thyroid: bilateral: normal size, enlarged - Respiratory Respiratory: left: rales, bilateral: CTA, diminished, dullness, wheezing - Cardiovascular Rhythm: regular Heart sounds: normal: S1, S2 Abnormal Heart Sounds: systolic murmur, S3 Gallop - Gastrointestinal General gastrointestinal: no absent bowel sounds, decreased bowel sounds, distended, no hepatomegaly, no hyperactive bowel sounds, no normal bowel sounds , no organomegaly, no rigid, scaphoid, soft, no splenomegaly, no tenderness, no umbilical hernia, no ventral hernia - Integumentary Integumentary: no calor, no cellulitis, no cyanotic, decreased turgor, no flushed, no jaundiced, normal, no normal turgor, pale, rash, no ulcer - Neurologic She is alert oriented x1 had significant weakness in lower extremity mild contraction in the upper extremity with generalized weakness strength is only 2 out of 5. Not been able to ambulate and walk Neurologic: CNII-XII intact - Musculoskeletal Severe weakness in the lower extremity the upper extremity is less weakness more in the right than the left. - Psychiatric Psychiatric: no appropriate affect - Labs CBC & Chem 7: 02/25/17 11:22 02/25/17 11:22 Assessment and Plan Plan: 1 sepsis with septicemia and gram-negative bacteremia due to suprapubic catheter associated urinary tract infection. Patient is currently on Levaquin. Consult with Dr. Hargrove. Urine culture and blood cultures initial and repeat are in process. 2 left lower lobe pneumonia is less likely. Continue Levaquin. 3 UTI/sepsis: Patient has suprapubic catheter will do empiric antibiotic with Levaquin awaiting for the final culture before changing antibiotics. 4 severe leukocytosis: Mostly leukemoid reaction secondary to sepsis and infection try to treat underlying disease. 5 MS: Patient has been seen urology regular basis she had significant weakness in lower extremity continue patient on baclofen along with gabapentin. 6 hypothyroidism: Continue patient on levothyroxine. 7 hyperlipidemia: Patient will continue on simvastatin. 8 restless leg syndrome: Remain on clonazepam. 9 stage II decubitus ulcer to the left buttocks and left gluteal fold, present on admission. Local wound care. Air mattress. 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 11 DVT prophylaxis: Patient be on heparin subcutaneous. 12 GI prophylaxis: Patient will be on Pepcid daily. CODE STATUS: Full code. Discharge plan: To be determined Impression and plan of care have been directed as dictated by the signing physician. Mónica Smith nurse practitioner acting as scribe for signing physician. Time with Patient: Greater than 30
[2017-02-25] MEDS: MORPHINE SULFATE 4 MG/ML SYRINGE IV PRN (19:05)
--- NOTE | 2017-02-25 20:40 | P.CNNES ---
History of Present Illness Consult date: 02/25/17 Reason for Consult: Patient with advanced Multiple Sclerosis and possible TIA. History of Present Illness: This patient is a 66-year-old right-handed white female who was admitted to [facility] with symptoms of increasing weakness and slurred speech. History was obtained from the patient as well as her daughter was at bedside. Daughter is geneticist who flew in from [place] to check on her mother. Apparently over the last week there is been a slow progression of her known history of multiple sclerosis. Patient has been followed in the outpatient neurology clinic for years for advanced stage multiple sclerosis. She is essentially been wheelchair bound due to her MS. She has significant left-sided spastic hemiparesis from her MS. She was using Copaxone as her primary treatment for the MS up until year ago. In November 2015 the patient decided to discontinue use of Copaxone and all other interferon therapies. She was last seen in the neurology clinic in May of last year. She missed her scheduled appointment in November of this year due to illness. The patient was brought into the emergency room and according to the daughter who provided medical history today she had episode of bilateral hand weakness and slurred speech. She was unable to get her words out for several minutes. This occurred a few days ago prior to her admission. She was brought into the emergency room yesterday for further evaluation. She was found to have evidence of leukocytosis with a white count of 31.5. Her temperature was noted to be 101.2. She had evidence of urinary tract infection and does have a history of suprapubic catheter placement for treatment of neurogenic bladder. The patient was started on IV antibiotics and admitted to the hospital. She was seen in infectious disease consultation by Dr. Hargrove. He has started her on Levaquin. Patient does seem to have improvement with her speech today. Given the episode of acute aphasia and bilateral hand weakness out of her normal muscle strength it was concerning for possibility of TIA. We discussed this today with the patient and her daughter at bedside. We have recommended she undergo an MRI of the brain for further evaluation of not only her history of multiple sclerosis but also to rule out acute stroke. Patient is now considering whether to restart on primary treatment for her MS. She is inquiring in regards to a new monoclonal antibody treatment that was just recently approved for use in treatment of MS. We have explained to the patient that due to her acute presentation of possible MS exacerbation plus sepsis we need to treat the infection first before beginning on any treatment with IV steroid therapy for MS exacerbation. As she has discontinued Copaxone she has no availability of restarting on Copaxone at this time. She was found also to have positive blood cultures for gram-negative bacilli. She also has stage II decubitus ulcers involving the left that oxen left gluteal fold. These are being addressed by infectious disease as well. Patient has been wheelchair bound due to her MS for years. We will need to get PT OT evaluation and possible subacute rehab assessment for the patient. We will continue close neurological follow-up of this patient during this admission. We have recommended a complete stroke evaluation for this patient. Her overall prognosis at this time remains guarded. Case was discussed at length with the patient and her daughter at bedside. All of their questions were answered. Daughter is aware of her mother's guarded condition. Neurology is now been consulted for further evaluation and recommendations. Review of Systems Constitutional: Denies chills, Denies fever Eyes: denies blurred vision, denies pain Ears, nose, mouth and throat: Denies headache, Denies sore throat Cardiovascular: Denies chest pain, Denies shortness of breath Respiratory: Denies cough Gastrointestinal: Denies abdominal pain, Denies diarrhea, Denies nausea, Denies vomiting Genitourinary: Denies dysuria, Denies hematuria Musculoskeletal: Denies myalgias Integumentary: Denies pruritus, Denies rash Neurological: Reports aphasia, Reports change in mentation, Reports change in speech, Reports gait dysfunction, Denies numbness, Denies weakness Psychiatric: Denies anxiety, Denies depression Endocrine: Denies fatigue, Denies weight change Past Medical History Past Medical History: Diabetes Mellitus, Deep Vein Thrombosis (DVT), Hyperlipidemia, Hypertension, Musculoskeletal Disorder, Neurologic Disorder, Thyroid Disorder Additional Past Medical History / Comment(s): Multiple sclerosis (diagnosed late s), L sided weakness with L hand contracture and unable to move bilateral lower extremities (tita lift to wheelchair), 2007 suprapubic catheter , currently being tx for bilateral buttock decubs with meihoney and dressings, UTIs, "border line DM", hypothyroid, bladder stones, bilateral cataracts. History of Any Multi-Drug Resistant Organisms: MRSA Date of last positivie culture/infection: 2012 MDRO Source:: Urine Past Surgical History: Bladder Surgery, Orthopedic Surgery, Tubal Ligation Additional Past Surgical History / Comment(s): EYE SURG AGE 6 for strabismus, ureteral surgery, cysto/lithotripsey, suprapubic catheter insertion, bilateral carpal releases, L leg eric d/t fx, L thumb sx, benign lesion removed from nose. Past Anesthesia/Blood Transfusion Reactions: No Reported Reaction Past Psychological History: No Psychological Hx Reported Smoking Status: Never smoker Past Alcohol Use History: None Reported Past Drug Use History: None Reported - Past Family History Mother Family Medical History: Hypertension Father Family Medical History: Coronary Artery Disease (CAD), Diabetes Mellitus Medications and Allergies Home Medications Medication Instructions Recorded Confirmed Type Baclofen [Baclofen] 10 mg PO TID 04/27/16 02/24/17 History Gabapentin [Gabapentin] 600 mg PO TID 04/27/16 02/24/17 History Levothyroxine Sodium [Synthroid] 25 mcg PO DAILY 04/27/16 02/24/17 History Aspirin 81 mg PO DAILY 02/24/17 02/24/17 History Cholecalciferol [Vitamin D3] 1,000 unit PO DAILY 02/24/17 02/24/17 History Lactulose 10 gm PO DAILY PRN 02/24/17 02/24/17 History Levothyroxine Sodium [Synthroid] 200 mcg PO DAILY 02/24/17 02/24/17 History Nortriptyline HCl [Pamelor] 25 mg PO BID 02/24/17 02/24/17 History Simvastatin [Zocor] 20 mg PO HS 02/24/17 02/24/17 History Trospium Chloride [Sanctura] 20 mg PO BID 02/24/17 02/24/17 History clonazePAM [KlonoPIN] 1 - 1.5 mg PO HS 02/24/17 02/24/17 History Allergies Allergy/AdvReac Type Severity Reaction Status Date / Time No Known Allergies Allergy Verified 02/24/17 12:03 Physical Examination - Vital Signs Vital Signs: Vital Signs Temp Pulse Resp BP Pulse Ox 02/25/17 20:14 16 02/25/17 15:00 97.7 F 109 H 20 121/77 97 02/25/17 11:08 99.0 F 02/25/17 09:34 101.2 F H 02/25/17 08:00 20 02/25/17 07:00 99.1 F 133 H 20 138/72 93 L 02/24/17 23:46 99 F 90 02/24/17 21:40 101.2 F H 101 H 18 138/72 95 Intake and Output 02/25/17 02/25/17 02/25/17 06:59 14:59 22:59 Intake Total 200 370 Output Total 700 1200 Balance -500 -830 Intake: Intake, IV Titration 250 Amount Sodium Chloride 0.9% 1, 250 000 ml @ 50 mls/hr IV . Q20H [facility] Rx#:[id number] Oral 200 120 Output: Urine 700 1200 Other: Voiding Method Indwelling Catheter Weight 136.078 kg Patient Weight 02/26/17 06:59 Weight 136.078 kg - Constitutional General appearance: average body habitus, cooperative - EENT EENT: PERRL, mucous membranes moist - Respiratory Respiratory: lungs clear, normal breath sounds - Cardiovascular Cardiovascular: regular rate, normal S1, normal S2 Extremities: no peripheral edema bilaterally - Gastrointestinal Gastrointestinal: normoactive bowel sounds - Integumentary Integumentary: normal - Neurologic Cranial nerve examination: PERRL, EOMI, VFF, V1/V2/V3 grossly intact, face symmetric, tongue midline, intact gag reflex, intact vestibulo-ocular reflex, intact corneal reflex, normal palatal elevation Speech examination: intact Sensorimotor examination: intact Motor examination - right side: 3/5: biceps, triceps, wrist flexion, wrist extension, soldering machine tender, hip flexors, knee extensors, dorsiflexion, toe extension (EHL) , plantarflexion Motor examination - left side: 1/5: biceps, triceps, wrist flexion, wrist extension, soldering machine tender, hip flexors, knee extensors, dorsiflexion, toe extension (EHL) , plantarflexion Detailed sensory examination: intact Reflex and gait examination: intact Reflexes: 1+: ankle, bicep, knee, tricep - Musculoskeletal Musculoskeletal: no pain - Psychiatric Psychiatric: mood/affect appropriate, cooperative Results - Laboratory Findings CBC and BMP: 02/25/17 11:22 02/25/17 11:22 Abnormal Lab Findings: Abnormal Labs 02/25/17 02/25/17 11:22 11:22 WBC 17.0 H Neutrophils # 15.4 H Lymphocytes # 0.5 L Sodium 134 L BUN 19 H Glucose 147 H Calcium 8.2 L Alkaline Phosphatase 140 H Total Protein 5.6 L Albumin 2.5 L Assessment and Plan (1) Multiple sclerosis exacerbation Status: Acute Code(s): G35 - MULTIPLE SCLEROSIS (2) Gram-negative bacteremia Status: Acute Code(s): R78.81 - BACTEREMIA (3) Urinary tract infection associated with cystostomy catheter Status: Acute Code(s): T83.510A - I/I REACT D/T CYSTOSTOMY CATHETER, INITIAL ENCOUNTER; N39.0 - URINARY TRACT INFECTION, SITE NOT SPECIFIED (4) TIA (transient ischemic attack) Status: Acute Code(s): G45.9 - TRANSIENT CEREBRAL ISCHEMIC ATTACK, UNSPECIFIED Plan: This patient is a 66-year-old female with long-standing history of advanced multiple sclerosis. Patient was in her usual state of health until 3 days ago at which time she developed severe expressive aphasia and bilateral arm weakness. This was clearly a change from her normal baseline of left-sided hemiparesis from her MS. Her clinical symptoms did resolve very quickly. She was admitted to hospital with gram-negative bacteremia and sepsis. She has a long-standing history of multiple sclerosis but decided to stop all treatment last November 2015. She was taking Copaxone as primary treatment for MS at that time. She is now wanting to consider new treatments for MS. She has been started on Levaquin for treatment of gram-negative bacteremia and sepsis. We will discuss her case in detail with Dr. Hargrove tomorrow for further assessment as to time frame of IV antibiotic therapy for this patient. Patient does seem to be doing much better with her speech but does complain of new symptoms of right arm weakness. We have recommended a MRI of the brain for further evaluation of her degree of MS plaque lesions as well as further evaluation to rule out acute stroke. She has not had an MRI of the brain for the last several years. We will also obtain a carotid Doppler ultrasound and further workup for stroke. Her overall prognosis at this time remains very guarded. Case was discussed at length with the patient's daughter who is an geneticist at bedside. All of her questions were answered in detail. She is aware of her mother's guarded condition at this time. We will continue close neurological follow-up for this patient during this admission. Time with Patient: Greater than 30
[2017-02-25] MEDS: ATORVASTATIN 10 MG TAB PO SCH (21:02)
[2017-02-25] MEDS: LEVOFLOXACIN 500MG-D5W PMX 500 MG in DEXTROSE/WATER 1 100ML.BAG IVPB SCH (22:18)
--- NOTE | 2017-02-25 22:33 | P.CON ---
Consult Note - . Consult date: 02/25/17 Assessment/Plan:: This is a 66-year-old female with a past medical history significant for as. She had a suprapubic catheter placed by Dr. Gonsales for neurogenic bladder. Patient presented to [facility] emergency center due to increasing weakness, fever chills, lightheadedness. She had leukocytosis of 31.5 and temperature max of 101.2. Urinalysis was turbid, blood moderate, nitrate positive, leukoesterase large, WBCs greater than 182, WBC clumps few. Troponin was negative. Albumin 3.6. Liver function tests mildly elevated with AST of 53, ALT 53, alkaline phosphatase 181. Urine culture is in progress and blood culture is showing gram-negative bacilli. Chest x-ray shows cardiomegaly with left lower lobe atelectasis, chronic pleural reaction, difficult to exclude airspace disease. Patient was admitted to the [facility] floor and was started on IV antibiotics in the form of Levaquin and she received 1 dose of vancomycin. She continues to be afebrile and repeat blood cultures were obtained. She also has change in mental status worse from yesterday. History is being obtained from the patient's chart and nursing. Patient also presented to the hospital with a stage II decubitus ulcer to the left buttocks and left gluteal fold.please see the consult note as dictated by nurse practitioner Mrs. Riberay Luis. Patient to be seen by neurology also. It this time this 66 lm was arousable eventually. She is able to relate that she feels poorly. She is weak and as functional as she was. This is happened to her before. Her daughter was present is also very concerned because when she got sick in the past she has significant decline of her MS. Which they relate directly to her ciprofloxacin therapy. At this time the patient's extensive leukocytosis is improving and her fevers also improving. appears to have evidence of sepsis From the urinary system with a bacteremia. With the resultant extensive leukocytosis and worsening MS symptoms. We discussed with the family that underlying sepsis can cause acute changes of underlying neurological status in persons with and without MS. It would expect as the sepsis resolved that she should go back to her baseline neurological status. We'll avoid any further quinolone therapy. Based on her history she has had pseudomonas as well as Klebsiella infection and Fortaz and will be utilized at this time. Local wound care will be with the silver foam border dressing to the right buttocks for the minimal one by one area of irritation. Foam to the rest of the buttocks to prevent any breakdown. Should do well to have an air mattress. Unclear her actual weight in the need for a bariatric bed. I agree with evaluation, assessment and plan as dictated by nurse practitioner Mrs. Mónica Calvin.
[2017-02-26] MEDS: LEVOTHYROXINE 100 MCG TAB PO SCH (06:18)
[2017-02-26] MEDS: LEVOTHYROXINE 25 MCG TAB PO SCH (06:18)
[2017-02-26 08:37] LABS: Basophils % (A) 0 %; CH 28.6; CHCM 32.1; Eosinophils # (A) 0.1 k/uL (0-0.7); Eosinophils % (A) 1 %; HCT 40.1 % (34.0-46.0); HDW 2.49; HGB 12.9 gm/dL (11.4-16.0); Luc # (Auto) 0.26; Luc % (Auto) 3; Lymphocytes # (A) 0.7 k/uL (1.0-4.8); Lymphocytes % (A) 7 %; MCHC 32.3 g/dL (31.0-37.0); MCV 89.8 fL (80.0-100.0); Mean Platelet Volume 7.9; Monocytes # (A) 0.3 k/uL (0-1.0); Monocytes % (A) 3 %; Neutrophils # (A) 8.3 k/uL (1.3-7.7); Neutrophils % (A) 86 %; RBC 4.47 m/uL (3.80-5.40); RDW 14.5 % (11.5-15.5); WBC 9.6 k/uL (3.8-10.6); WBC (Perox) 10.26
[2017-02-26] MEDS: BACLOFEN 10 MG TAB PO SCH ×3 (08:42→21:09)
[2017-02-26] MEDS: ASPIRIN 81 MG CHEW PO SCH (08:42)
[2017-02-26] MEDS: NORTRIPTYLINE 25 MG CAP PO SCH ×2 (08:42→21:09)
[2017-02-26] MEDS: SODIUM CHLORIDE 0.9% 1,000 ML IV SCH (08:42)
[2017-02-26] MEDS: GABAPENTIN 300 MG CAP PO SCH ×3 (08:42→21:08)
[2017-02-26 08:46] LABS: Anion Gap 10 mmol/L; Blood Urea Nitrogen 20 mg/dL (7-17); Calcium 8.4 mg/dL (8.4-10.2); Carbon Dioxide 23 mmol/L (22-30); Chloride 104 mmol/L (98-107); Cholesterol 105 mg/dL (<200); Glucose 106 mg/dL (74-99); HDL Cholesterol 14 mg/dL (40-60); Non-African American GFR(MDRD) >60 (>60 ml/min/1.73 sqM); Potassium 3.9 mmol/L (3.5-5.1); Sodium 137 mmol/L (137-145); Triglycerides 186 mg/dL (<150)
--- NOTE | 2017-02-26 10:58 | US ---
EXAMINATION TYPE: US carotid duplex BILAT DATE OF EXAM: 02/26/2017 10:44 AM COMPARISON: NONE CLINICAL HISTORY: TIA. EXAM MEASUREMENTS: RIGHT: Peak Systolic Velocity (PSV) cm/sec ----- Right CCA: 159.3 ----- Right ICA: 135.0 ----- Right ECA: 158.9 ICA/CCA ratio: 0.8 RIGHT: End Diastole cm/sec ----- Right CCA: 30.0 ----- Right ICA: 26.8 ----- Right ECA: 11.0 LEFT: Peak Systolic Velocity (PSV) cm/sec ----- Left CCA: 110.8 ----- Left ICA: 115.7 ----- Left ECA: 133.9 ICA/CCA ratio: 1.0 LEFT: End Diastole cm/sec ----- Left CCA: 28.4 ----- Left ICA: 31.7 ----- Left ECA: 16.0 VERTEBRALS (direction of flow): Right Vertebral: Antegrade Left Vertebral: Antegrade No plaque visualized. No significant stenosis. Elevated velocities seen in right and left CCA. Bila teral elevated ECA. Elevated right ICA velocities. Right wall thickening. Suboptimal exam due to patient body habitus and unable to turn head for better visualization. IMPRESSION: 1. 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 2. ELEVATED FLOW VELOCITIES, BOTH ECAS. Criteria for Assigning % of Stenosis / Diameter reduction (Estimation based on the indirect measurements of the internal carotid artery velocities (ICA PSV). 1. Normal (no stenosis)=ICA PSV < 125 cm/s: ratio < 2.0: ICA EDV<40 cm/s. 2. Less than 50% stenosis=ICA PSV < 125 cm/s: ratio < 2.0: ICA EDV<40 cm/s. 3. 50 to 69% stenosis=ICA PSV of 125 to 230 cm/s: ration 2.0 ? 4.0: ICA EDV 40-100 cm/s. 4. Greater than 70% stenosis to near occlusion= ICA PSV > 230 cm/s: ratio > 4.0: ICA EDV > 100 cm/s. 5. Near occlusion= ICA PSV velocities may be low or undetectable: variable ratio and ICA EDV. 6. Total occlusion=unable to detect flow.
[2017-02-26] MEDS: LACTULOSE 20 GM/30 ML CUP PO PRN (11:22)
[2017-02-26] MEDS ORDERED: ACETAMINOPHEN IV (For NPO) 1,000 MG in EMPTY BAG 1 BAG IVPB STA (14:25)
[2017-02-26] MEDS: CHOLECALCIFEROL 1,000 UNIT TAB PO SCH (15:05)
--- NOTE | 2017-02-26 16:43 | P.PN ---
Subjective 66-year-old female [address] Patterson[address] patient with history of obesity, multiple sclerosis with debility, recurrent kidney stone,'s post suprapubic catheter done by Dr. Gonsales last year, history of hypothyroidism and borderline diabetes who presented to the emergency department today 02/24/2017 complaining of fever chills severe generalized weakness and not feeling well with slightly bit worsening discomfort in the left upper quadrant area with significant shortness of breath with deep inspiration. Workup in the emergency room showed chest x-ray consistent with finding of consolidation and atelectasis in the left base, also urine test was slightly bit positive and surprisingly her white blood cell were over 32,000. Patient was diagnosed with sepsis/UTI and pneumonia with start gram-negative coverage and admit patient to the hospital with above problem. 02/25: Patient has had continued fevers of 101.2. Repeat blood cultures have been obtained. Initial blood cultures are showing gram-negative bacteremia. Urine culture is in process. Consult requested with Dr. Hargrove. Patient's mental status is a bit worse from yesterday she has some increased confusion. White count is improved to 17.0 02/26: Patient continues to be quite drowsy, she continues to have significant paralysis of the right upper extremity along with left upper and bilateral lower extremities, patient suffered from severe MS, she has been seen by neurology, there accommodation for MRI of the brain could not be accomplished at our institution however the patient can be transferred to [facility] for her MRI that was ordered by Dr. Wills. Her urine culture showed E. coli that is sensitive to Fortaz. The patient has been off fluoroquinolone. Dr. Hargrove has been following. Objective - Vital Signs Vital signs: Vital Signs Temp 97.6 F 02/26/17 07:00 Pulse 125 H 02/26/17 07:00 Resp 18 02/26/17 07:00 BP 108/57 02/26/17 07:00 Pulse Ox 90 L 02/26/17 07:00 Intake & Output 02/25/17 02/26/17 02/26/17 18:59 06:59 18:59 Intake Total 370 600 Output Total 1200 1126 Balance -830 -526 Weight 136.078 kg Intake: Intake, IV Titration 250 600 Amount Sodium Chloride 0.9% 1, 250 400 000 ml @ 50 mls/hr IV . Q20H [facility] Rx#:[id number] cefTAZidime 2 gm In 200 Sodium Chloride 0.9% 100 ml @ 100 mls/hr IVPB Q8HR [facility] Rx#:[id number] Oral 120 Output: Urine 1200 1125 Urine/Stool Mix 1 Other: Voiding Method Indwelling Catheter Indwelling Catheter Indwelling Catheter - Exam - Exam General appearance: no average body habitus, cooperative, disheveled, no mild distress, morbidly obese, no acute distress, no obese, no severe distress, no thin - EENT Eyes: no abnormal pupil, no anicteric sclerae, no disc margins sharp, no edentulous, no EOMI, no PERRLA, no fundus normal, no photophobia, no dentition normal, no poor dentition, no ptosis, scleral icterus, normal appearance ENT: hard of hearing, no hearing grossly normal, no NA/AT, normal oropharynx, no other, pharyngeal erythema, no thrush, no tonsillar exudates, no tonsillar swelling Ears: bilateral: normal, bulging - Neck Neck: no lymphadenopathy, normal ROM, no other, no rigidity, no stridor, no thyromegaly Carotids: bilateral: upstroke normal, upstroke delayed Thyroid: bilateral: normal size, enlarged - Respiratory Respiratory: left: rales, bilateral: CTA, diminished, dullness, wheezing - Cardiovascular Rhythm: regular Heart sounds: normal: S1, S2 Abnormal Heart Sounds: systolic murmur, S3 Gallop - Gastrointestinal General gastrointestinal: no absent bowel sounds, decreased bowel sounds, distended, no hepatomegaly, no hyperactive bowel sounds, no normal bowel sounds , no organomegaly, no rigid, scaphoid, soft, no splenomegaly, no tenderness, no umbilical hernia, no ventral hernia - Integumentary Integumentary: no calor, no cellulitis, no cyanotic, decreased turgor, no flushed, no jaundiced, normal, no normal turgor, pale, rash, no ulcer - Neurologic She is alert oriented x1 had significant weakness in lower extremity mild contraction in the upper extremity with generalized weakness strength is only 2 out of 5. Not been able to ambulate and walk Neurologic: Patient has been flaccid in bilateral upper and lower extremities. - Labs CBC & Chem 7: 02/26/17 08:16 02/26/17 08:16 Labs: Abnormal Lab Results - Last 24 Hours (Table) 02/26/17 02/26/17 Range/Units 08:16 08:16 Neutrophils # 8.3 H (1.3-7.7) k/uL Lymphocytes # 0.7 L (1.0-4.8) k/uL BUN 20 H (7-17) mg/dL Glucose 106 H (74-99) mg/dL Triglycerides 186 H (<150) mg/dL HDL Cholesterol 14 L (40-60) mg/dL Microbiology - Last 24 Hours (Table) 02/25/17 10:35 Blood Culture Gram Stain - Preliminary Blood 02/25/17 10:35 Blood Culture - Preliminary Blood 02/25/17 10:35 Blood Culture Gram Stain - Preliminary Blood 02/25/17 11:22 Blood Culture - Final Blood Assessment and Plan Plan: Assessment and Plan Plan: 1 sepsis with septicemia and gram-negative bacteremia due to suprapubic catheter associated urinary tract infection. Patient is currently on Fortaz. Consult with Dr. Hargrove. Urine culture showed E. coli that is sensitive to Fortaz. Patient has been off fluoroquinolones. 2 left lower lobe pneumonia is less likely. Continue Fortaz. 3 UTI/sepsis: Patient has suprapubic catheter will do empiric antibiotic with Levaquin awaiting for the final culture before changing antibiotics. 4 severe leukocytosis: Mostly leukemoid reaction secondary to sepsis and infection try to treat underlying disease. 5 MS: Patient has been seen urology regular basis she had significant weakness in lower extremity continue patient on baclofen along with gabapentin. 6 hypothyroidism: Continue patient on levothyroxine. 7 hyperlipidemia: Patient will continue on simvastatin. 8 restless leg syndrome: Remain on clonazepam. 9 stage II decubitus ulcer to the left buttocks and left gluteal fold, present on admission. Local wound care. Air mattress. 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 11 DVT prophylaxis: Patient be on heparin subcutaneous. 12 GI prophylaxis: Patient will be on Pepcid daily. 13. Sinus tachycardia due to her sepsis. Today IV fluid resuscitation as well as IV antibiotic. 14.CODE STATUS: Full code. 15. Prognosis is guarded.
--- NOTE | 2017-02-26 18:34 | P.PN ---
Subjective Principal diagnosis: Sepsis This is a 66-year-old female with a past medical history significant for as. She had a suprapubic catheter placed by Dr. Gonsales for neurogenic bladder. Patient presented to [facility] emergency center due to increasing weakness, fever chills, lightheadedness. She had leukocytosis of 31.5 and temperature max of 101.2. Urinalysis was turbid, blood moderate, nitrate positive, leukoesterase large, WBCs greater than 182, WBC clumps few. Troponin was negative. Albumin 3.6. Liver function tests mildly elevated with AST of 53, ALT 53, alkaline phosphatase 181. Urine culture is in progress and blood culture is showing gram-negative bacilli. Chest x-ray shows cardiomegaly with left lower lobe atelectasis, chronic pleural reaction, difficult to exclude airspace disease. [facility] and was started on IV antibiotics in the form of Levaquin and she received 1 dose of vancomycin. She continues to be afebrile and repeat blood cultures were obtained. She also has change in mental status worse from yesterday. History is being obtained from the patient's chart and nursing. Patient also presented to the hospital with a stage II decubitus ulcer to the left buttocks and left gluteal fold. Patient still febrile today. 102 this afternoon. Tolerating antipyretic well. Has fatigue and tired. No other new complaints are noted except the fever. Family's questions are answered Objective - Vital Signs Vital signs: Vital Signs Temp 97.6 F 02/26/17 15:04 Pulse 126 H 02/26/17 15:00 Resp 18 02/26/17 15:00 BP 122/67 02/26/17 15:00 Pulse Ox 90 L 02/26/17 15:00 Intake & Output 02/25/17 02/26/17 02/26/17 18:59 06:59 18:59 Intake Total 370 600 670 Output Total 1200 1126 Balance -830 -526 670 Weight 136.078 kg Intake: Intake, IV Titration 250 600 550 Amount Sodium Chloride 0.9% 1, 250 400 450 000 ml @ 50 mls/hr IV . Q20H [facility] Rx#:[id number] cefTAZidime 2 gm In 200 100 Sodium Chloride 0.9% 100 ml @ 100 mls/hr IVPB Q8HR [facility] Rx#:[id number] Oral 120 120 Output: Urine 1200 1125 Urine/Stool Mix 1 Other: Voiding Method Indwelling Catheter Indwelling Catheter Indwelling Catheter - Exam Gen: This is a 66-year-old morbidly obese female. She is sleeping in bed but arouses to verbal stimuli. She is quite confused today. HEENT: Head is atraumatic, normocephalic. Pupils equal, round. Sclerae is anicteric. NECK: Supple. No JVD. No lymphadenopathy. No thyromegaly. LUNGS: Diminished bilaterally. No intercostal retractions. HEART: Regular rate and rhythm. Systolic murmur. ABDOMEN: Soft. Bowel sounds are present. No masses. No tenderness. Suprapubic catheter in place draining clear urine with noted sediment. Stage II decubitus ulcer to the left buttocks and left gluteal fold. EXTREMITIES: 1+ pedal edema. No calf tenderness. NEUROLOGICAL: Patient is awake, alert and oriented x1 patient does move upper extremities on command. has weakness much greater in the left arm than the right - Labs CBC & Chem 7: 02/26/17 08:16 02/26/17 08:16 Labs: Abnormal Lab Results - Last 24 Hours (Table) 02/26/17 02/26/17 Range/Units 08:16 08:16 Neutrophils # 8.3 H (1.3-7.7) k/uL Lymphocytes # 0.7 L (1.0-4.8) k/uL BUN 20 H (7-17) mg/dL Glucose 106 H (74-99) mg/dL Triglycerides 186 H (<150) mg/dL HDL Cholesterol 14 L (40-60) mg/dL Microbiology - Last 24 Hours (Table) 02/25/17 10:35 Blood Culture Gram Stain - Preliminary Blood 02/25/17 10:35 Blood Culture Gram Stain - Preliminary Blood 02/25/17 10:35 Blood Culture - Preliminary Blood 02/25/17 11:22 Blood Culture - Final Blood Laboratory Results WBC 9.6 k/uL (3.8-10.6) 02/26/17 08:16 RBC 4.47 m/uL (3.80-5.40) 02/26/17 08:16 Hgb 12.9 gm/dL (11.4-16.0) 02/26/17 08:16 Hct 40.1 % (34.0-46.0) 02/26/17 08:16 MCV 89.8 fL (80.0-100.0) 02/26/17 08:16 MCH 29.0 pg (25.0-35.0) 02/26/17 08:16 MCHC 32.3 g/dL (31.0-37.0) 02/26/17 08:16 RDW 14.5 % (11.5-15.5) 02/26/17 08:16 Plt Count 168 k/uL (150-450) 02/26/17 08:16 Neutrophils % 86 % 02/26/17 08:16 Neutrophils % (Manual) 84.0 % 02/24/17 11:14 Band Neutrophils % 11.0 % 02/24/17 11:14 Lymphocytes % 7 % 02/26/17 08:16 Lymphocytes % (Manual) 1.5 % 02/24/17 11:14 Monocytes % 3 % 02/26/17 08: Monocytes % (Manual) 3.0 % 02/24/17 11:14 Eosinophils % 1 % 02/26/17 08:16 Eosinophils % (Manual) 0.5 % 02/24/17 11:14 Basophils % 0 % 02/26/17 08:16 Neutrophils # 8.3 k/uL (1.3-7.7) H 02/26/17 08:16 Neutrophils # (Manual) 29.9 k/uL (1.3-7.7) H 02/24/17 11:14 Lymphocytes # 0.7 k/uL (1.0-4.8) L 02/26/17 08:16 Lymphocytes # (Manual) 0.5 k/uL (1.0-4.8) L 02/24/17 11:14 Monocytes # 0.3 k/uL (0-1.0) 02/26/17 08:16 Monocytes # (Manual) 0.9 k/uL (0-1.0) 02/24/17 11:14 Eosinophils # 0.1 k/uL (0-0.7) 02/26/17 08:16 Eosinophils # (Manual) 0.2 k/uL (0-0.7) 02/24/17 11:14 Basophils # 0.0 k/uL (0-0.2) 02/26/17 08:16 Nucleated RBCs 0 /100 WBC (0-0) 02/24/17 11:14 Toxic Vacuolation Present 02/24/17 11:14 RBC Morphology Normal 02/24/17 11:14 PT 12.6 sec (9.0-12.0) H 02/24/17 11:14 INR 1.3 (<1.1) 02/24/17 11:14 APTT 25.5 sec (22.0-30.0) 02/24/17 11:14 Sodium 137 mmol/L (137-145) 02/26/17 08:16 Potassium 3.9 mmol/L (3.5-5.1) 02/26/17 08:16 Chloride 104 mmol/L (98-107) 02/26/17 08:16 Carbon Dioxide 23 mmol/L (22-30) 02/26/17 08:16 Anion Gap 10 mmol/L 02/26/17 08:16 BUN 20 mg/dL (7-17) H 02/26/17 08:16 Creatinine 0.80 mg/dL (0.52-1.04) 02/26/17 08:16 Est GFR (MDRD) Af Amer >60 (>60 ml/min/1.73 sqM) 02/26/17 08:16 Est GFR (MDRD) Non-Af >60 (>60 ml/min/1.73 sqM) 02/26/17 08:16 Glucose 106 mg/dL (74-99) H 02/26/17 08:16 POC Glucose (mg/dL) 91 mg/dL (75-99) 02/25/17 07:21 POC Glu [employer] IN[employer] [place] 02/25/17 07:21 Plasma Lactic Acid Aryan 1.9 mmol/L (0.7-2.0) 02/24/17 11:14 Calcium 8.4 mg/dL (8.4-10.2) 02/26/17 08:16 Phosphorus 3.9 mg/dL (2.5-4.5) 02/24/17 11:14 Magnesium 1.9 mg/dL (1.6-2.3) 02/24/17 11:14 Total Bilirubin 0.6 mg/dL (0.2-1.3) 02/25/17 11:22 AST 34 U/L (14-36) 02/25/17 11:22 ALT 38 U/L (9-52) 02/25/17 11:22 Alkaline Phosphatase 140 U/L (38-126) H 02/25/17 11:22 Troponin I <0.012 ng/mL (0.000-0.034) 02/24/17 11:14 Total Protein 5.6 g/dL (6.3-8.2) L 02/25/17 11:22 Albumin 2.5 g/dL (3.5-5.0) L 02/25/17 11:22 Triglycerides 186 mg/dL (<150) H 02/26/17 08:16 Cholesterol 105 mg/dL (<200) 02/26/17 08:16 LDL Cholesterol, Calc 54 mg/dL (0-99) 02/26/17 08:16 HDL Cholesterol 14 mg/dL (40-60) L 02/26/17 08:16 Urine Color Yellow 02/24/17 12:50 Urine Appearance Turbid (Clear) H 02/24/17 12:50 Urine pH 5.0 (5.0-8.0) 02/24/17 12:50 Ur Specific [place] 1.010 (1.001-1.035) 02/24/17 12:50 Urine Protein Trace (Negative) H 02/24/17 12:50 Urine Glucose (UA) Negative (Negative) 02/24/17 12:50 Urine Ketones 1+ (Negative) H 02/24/17 12:50 Urine Blood Moderate (Negative) H 02/24/17 12:50 Urine Nitrite Positive (Negative) H 02/24/17 12:50 Urine Bilirubin Negative (Negative) 02/24/17 12:50 Urine Urobilinogen <2.0 mg/dL (<2.0) 02/24/17 12:50 Ur Leukocyte Esterase Large (Negative) H 02/24/17 12:50 Urine RBC 24 /hpf (0-5) H 02/24/17 12:50 Urine WBC >182 /hpf (0-5) H 02/24/17 12:50 Urine WBC Clumps Few /hpf (None) H 02/24/17 12:50 Ur Squamous Epith Cells 1 /hpf (0-4) 02/24/17 12:50 Urine Bacteria Few /hpf (None) H 02/24/17 12:50 Urine Mucus Few /hpf (None) H 02/24/17 12:50 Influenza Type A RNA Not Detected (Not Detectd) 02/25/17 15:15 Influenza Type B (PCR) Not Detected (Not Detectd) 02/25/17 15:15 Microbiology 02/25/17 10:35 Blood Blood Culture Gram Stain - Preliminary 02/25/17 10:35 Blood Blood Culture Gram Stain - Preliminary 02/25/17 10:35 Blood Blood Culture - Preliminary 02/24/17 11:14 Blood Blood Culture - Final 02/25/17 11:22 Blood Blood Culture - Final 02/24/17 11:22 Blood Blood Culture Gram Stain - Final 02/24/17 11:22 Blood Blood Culture - Final Escherichia coli 02/24/17 12:50 Urine,Catheterized Urine Culture - Preliminary Gram Neg Bacilli Assessment and Plan (1) Gram-negative bacteremia Narrative/Plan: 66-year-old woman who has MS who is developed evidence of gram- negative sepsis from the urinary system. This is discussed with the and daughter were present. She's had several mild urinary tract infections not requiring hospitalization. They're wondering if they could change her urinary catheter more frequently. At this time there is not enough data to suggest that this would be helpful. However improved hygiene and possibly urinary acidification may be helpful. In the minimum cranberry products might be helpful. As of now she is evidence of Escherichia coli in her urine and her blood. Final cultures are pending. Because of her prior difficulties with ciprofloxacin, levofloxacin was changed to ceftaz again to ensure we were covering for E. coli as well as Pseudomonas bacteriuria most bacteremia. She actually is improving at this point in time. We'll continue current antibiotic therapy until final cultures are available. Follow blood cultures are requested that all current blood cultures are positive. Renal ultrasound has been requested and should is not an obstructive process is etiology of ongoing bacteremia and illness. This is all discussed with the family and they understand. Status: Acute (2) Multiple sclerosis exacerbation Status: Acute (3) Urinary tract infection associated with cystostomy catheter Status: Acute
--- NOTE | 2017-02-26 19:03 | P.PN ---
Subjective This patient is a 66-year-old female who has been admitted to hospital with acute weakness and sepsis. Patient has a known history of advanced multiple sclerosis. She was admitted as she developed suprapubic catheter sepsis. She was also noted to have evidence of significant weakness and episode of slurred speech initially prior to admission. For this reason she was advised to undergo further stroke workup including MRI of the brain and carotid Doppler ultrasound. She is now being treated for gram-negative sepsis and urinary tract infection. This is felt to be a gram-negative bacteremia. She has recurrent urinary tract infections with cystostomy catheter placement in the past due to neurogenic bladder. She continues to have some right arm weakness. We had recommended MRI of the brain but she is not capable of having it done in hospital as she is not able to fit into the MRI machine. She is being accommodated possibly for outpatient MRI and a another institution. Her carotid Doppler study was completed today and reveals 50-69% stenosis of the right ICA. All test results were reviewed today with the patient. Infectious disease is following the patient closely for her gram-negative sepsis. She is on ceftaz as per the recommendations of Dr. Hargrove. Overall he feels she is showing improvement since treatment of the underlying sepsis. Patient has not been on any specific interferon therapy for her MS for over one year. We have discussed with Dr. Hargrove today that treatment of her acute MS exacerbation with steroids cannot be done until her infection is completely resolved. We will continue close monitoring of the patient. If need be the IV steroids can be administered in the outpatient setting one she is discharged. She will require ongoing PT/ OT and possible subacute rehab placement depending on her response. Patient may consider restarting on Copaxone as primary treatment for MS. She is also interested in seeking out alternative treatments such as monoclonal antibody therapy with Ocrelizumab. This will be further discussed with the patient one she is past the acute stage of her recent flareup. We have recommended MRI of the brain for further assessment of her MS plaque burden. We will continue close neurological follow-up with the patient. Her overall prognosis at this time remains guarded. Objective - Vital Signs Vital signs: Vital Signs Temp 97.6 F 02/26/17 15:04 Pulse 126 H 02/26/17 15:00 Resp 18 02/26/17 15:00 BP 122/67 02/26/17 15:00 Pulse Ox 90 L 02/26/17 15:00 Intake & Output 02/25/17 02/26/17 02/26/17 18:59 06:59 18:59 Intake Total 370 600 670 Output Total 1200 1126 Balance -830 -526 670 Weight 136.078 kg Intake: Intake, IV Titration 250 600 550 Amount Sodium Chloride 0.9% 1, 250 400 450 000 ml @ 50 mls/hr IV . Q20H [facility] Rx#:[id number] cefTAZidime 2 gm In 200 100 Sodium Chloride 0.9% 100 ml @ 100 mls/hr IVPB Q8HR [facility] Rx#:[id number] Oral 120 120 Output: Urine 1200 1125 Urine/Stool Mix 1 Other: Voiding Method Indwelling Catheter Indwelling Catheter Indwelling Catheter - Exam Physical examination: PHYSICAL EXAMINATION: Patient is resting comfortably in bed. VITAL SIGNS: Blood pressure is [122/67]. Heart rate is [126]. Respiration is [18 ]. Temperature is [97.7]. HEENT: Head is atraumatic, neck is supple, there were no carotid bruits. CHEST: Lungs are clear to auscultation and percussion. CARDIAC: S1, S2 normal rate and rhythm. There is no murmur. ABDOMEN: Soft and nontender. Bowel sounds are present. EXTREMITIES: There is no pedal edema. Peripheral pulses are present. Neurological examination: Patient's neurological examination is unchanged from yesterday. She continues to have bilateral arm weakness. Her speech is much improved and seems to be near baseline for today. We are waiting MRI of the brain to be done for further evaluation of her MS. - Labs CBC & Chem 7: 02/26/17 08:16 02/26/17 08:16 Labs: Abnormal Lab Results - Last 24 Hours (Table) 02/26/17 02/26/17 Range/Units 08:16 08:16 Neutrophils # 8.3 H (1.3-7.7) k/uL Lymphocytes # 0.7 L (1.0-4.8) k/uL BUN 20 H (7-17) mg/dL Glucose 106 H (74-99) mg/dL Triglycerides 186 H (<150) mg/dL HDL Cholesterol 14 L (40-60) mg/dL Microbiology - Last 24 Hours (Table) 02/25/17 10:35 Blood Culture Gram Stain - Preliminary Blood 02/25/17 10:35 Blood Culture Gram Stain - Preliminary Blood 02/25/17 10:35 Blood Culture - Preliminary Blood 02/25/17 11:22 Blood Culture - Final Blood Assessment and Plan (1) Multiple sclerosis exacerbation Status: Acute Code(s): G35 - MULTIPLE SCLEROSIS (2) Gram-negative bacteremia Status: Acute Code(s): R78.81 - BACTEREMIA (3) Urinary tract infection associated with cystostomy catheter Status: Acute Code(s): T83.510A - I/I REACT D/T CYSTOSTOMY CATHETER, INITIAL ENCOUNTER; N39.0 - URINARY TRACT INFECTION, SITE NOT SPECIFIED (4) TIA (transient ischemic attack) Status: Acute Code(s): G45.9 - TRANSIENT CEREBRAL ISCHEMIC ATTACK, UNSPECIFIED Plan: This patient is a 66-year-old female with history of advanced multiple sclerosis. She was admitted for acute sepsis and bacteremia. She has evidence of a gram-negative bacteremia secondary to super pubic catheter infection. She has been started on ceftaz and is being followed closely by Dr. Hargrove from infectious disease. She is not on any specific interferon therapy issues discontinued all therapies for over one year for treatment of her MS. She is now reconsidering possible alternative treatments. She is not a candidate for IV steroids due to the recent gram-negative bacteremia and sepsis. Once she is completely cleared we can consider a course of steroid therapy for MS exacerbation. She is awaiting MRI of the brain to be done. Carotid Doppler study failed to reveal any significant carotid artery stenosis. She would benefit from PT OT and speech therapy in subacute rehab. We will continue close neurological follow-up of this patient during this admission.
[2017-02-26] MEDS: ATORVASTATIN 10 MG TAB PO SCH (21:09)
[2017-02-26] MEDS ORDERED: LEVOFLOXACIN 500 MG TAB PO SCH (22:30)
[2017-02-27] MEDS: SODIUM CHLORIDE 0.9% 1,000 ML IV SCH ×2 (06:28→23:37)
[2017-02-27] MEDS: LEVOTHYROXINE 25 MCG TAB PO SCH (06:28)
[2017-02-27] MEDS: LEVOTHYROXINE 100 MCG TAB PO SCH (06:28)
[2017-02-27] MEDS: GABAPENTIN 300 MG CAP PO SCH ×3 (08:32→21:54)
[2017-02-27] MEDS: BACLOFEN 10 MG TAB PO SCH ×3 (08:32→21:55)
[2017-02-27] MEDS: NORTRIPTYLINE 25 MG CAP PO SCH ×2 (08:32→21:55)
[2017-02-27] MEDS: ASPIRIN 81 MG CHEW PO SCH (08:32)
--- NOTE | 2017-02-27 08:38 | US ---
EXAMINATION TYPE: US renals and bladder DATE OF EXAM: 02/27/2017 8:11 AM COMPARISON: NONE CLINICAL HISTORY: renal obstruction. Recurrent UTIs, suprapubic indwelling catheter EXAM MEASUREMENTS: Right Kidney: 13.1 x 6.5 x 5.9 cm Left Kidney: 13.4 x 7.5 x 7.2 cm exam performed portably on morbidly obese patient who is unable to move herself. Right Kidney: somewhat lobular contour, no hydro seen Left Kidney: thinned cortex, moderate hydro noted Bladder: not seen due to catheter IMPRESSION: MODERATE LEFT-SIDED HYDRONEPHROSIS ETIOLOGY OF WHICH IS UNCLEAR.
[2017-02-27 08:58] LABS: Basophils % (A) 0 %; CH 28.1; CHCM 31.6; Eosinophils # (A) 0.3 k/uL (0-0.7); Eosinophils % (A) 3 %; HCT 36.2 % (34.0-46.0); HDW 2.52; HGB 11.7 gm/dL (11.4-16.0); Luc # (Auto) 0.29; Luc % (Auto) 3; Lymphocytes % (A) 9 %; MCH 28.9 pg (25.0-35.0); MCHC 32.3 g/dL (31.0-37.0); MCV 89.7 fL (80.0-100.0); Monocytes # (A) 0.3 k/uL (0-1.0); Monocytes % (A) 3 %; Neutrophils # (A) 9.2 k/uL (1.3-7.7); Neutrophils % (A) 83 %; RBC 4.03 m/uL (3.80-5.40); RDW 14.5 % (11.5-15.5); WBC (Perox) 11.65
[2017-02-27 09:10] LABS: ALT 38 U/L (9-52); AST 29 U/L (14-36); Alkaline Phosphatase 227 U/L (38-126); Anion Gap 11 mmol/L; Blood Urea Nitrogen 18 mg/dL (7-17); Calcium 8.1 mg/dL (8.4-10.2); Carbon Dioxide 24 mmol/L (22-30); Chloride 105 mmol/L (98-107); Glucose 91 mg/dL (74-99); Non-African American GFR(MDRD) >60 (>60 ml/min/1.73 sqM); Potassium 3.1 mmol/L (3.5-5.1); Sodium 140 mmol/L (137-145); Total Bilirubin 0.7 mg/dL (0.2-1.3); Total Protein 5.4 g/dL (6.3-8.2)
[2017-02-27] MEDS ORDERED: POTASSIUM CHLORIDE ER 20 MEQ TAB.ER PO STA (09:43)
[2017-02-27] MEDS: CHOLECALCIFEROL 1,000 UNIT TAB PO SCH (13:04)
--- NOTE | 2017-02-27 13:10 | P.PN ---
Subjective 66-year-old female [address] Patterson[address] patient with history of obesity, multiple sclerosis with debility, recurrent kidney stone,'s post suprapubic catheter done by Dr. Gonsales last year, history of hypothyroidism and borderline diabetes who presented to the emergency department today 02/24/2017 complaining of fever chills severe generalized weakness and not feeling well with slightly bit worsening discomfort in the left upper quadrant area with significant shortness of breath with deep inspiration. Workup in the emergency room showed chest x-ray consistent with finding of consolidation and atelectasis in the left base, also urine test was slightly bit positive and surprisingly her white blood cell were over 32,000. Patient was diagnosed with sepsis/UTI and pneumonia with start gram-negative coverage and admit patient to the hospital with above problem. 02/25: Patient has had continued fevers of 101.2. Repeat blood cultures have been obtained. Initial blood cultures are showing gram-negative bacteremia. Urine culture is in process. Consult requested with Dr. Hargrove. Patient's mental status is a bit worse from yesterday she has some increased confusion. White count is improved to 17.0 02/26: Patient continues to be quite drowsy, she continues to have significant paralysis of the right upper extremity along with left upper and bilateral lower extremities, patient suffered from severe MS, she has been seen by neurology, there accommodation for MRI of the brain could not be accomplished at our institution however the patient can be transferred to [facility] for her MRI that was ordered by Dr. Wills. Her urine culture showed E. coli that is sensitive to Fortaz. The patient has been off fluoroquinolone. Dr. Hargrove has been following. 02/27: Patient is more awake today more alert that she is having some movement in the right upper extremity, we will continue with current treatment plan and the plan to send the patient back home with home PT OT and she would need a hospital bed as well. Objective - Vital Signs Vital signs: Vital Signs Temp 97.3 F L 02/27/17 07:00 Pulse 104 H 02/27/17 07:00 Resp 20 02/27/17 07:00 BP 117/62 02/27/17 07:00 Pulse Ox 94 L 02/27/17 07:00 Intake & Output 02/26/17 02/27/17 02/27/17 18:59 06:59 18:59 Intake Total 670 320 Output Total 400 Balance 670 -80 Intake: Intake, IV Titration 550 320 Amount Sodium Chloride 0.9% 1, 450 320 000 ml @ 50 mls/hr IV . Q20H [facility] Rx#:[id number] cefTAZidime 2 gm In 100 Sodium Chloride 0.9% 100 ml @ 100 mls/hr IVPB Q8HR [facility] Rx#:[id number] Oral 120 Output: Urine 400 Other: Voiding Method Indwelling Catheter Indwelling Catheter Indwelling Catheter - Exam - Exam General appearance: no average body habitus, cooperative, disheveled, no mild distress, morbidly obese, no acute distress, no obese, no severe distress, no thin - EENT Eyes: no abnormal pupil, no anicteric sclerae, no disc margins sharp, no edentulous, no EOMI, no PERRLA, no fundus normal, no photophobia, no dentition normal, no poor dentition, no ptosis, scleral icterus, normal appearance ENT: hard of hearing, no hearing grossly normal, no NA/AT, normal oropharynx, no other, pharyngeal erythema, no thrush, no tonsillar exudates, no tonsillar swelling Ears: bilateral: normal, bulging - Neck Neck: no lymphadenopathy, normal ROM, no other, no rigidity, no stridor, no thyromegaly Carotids: bilateral: upstroke normal, upstroke delayed Thyroid: bilateral: normal size, enlarged - Respiratory Respiratory: left: rales, bilateral: CTA, diminished, dullness, wheezing - Cardiovascular Rhythm: regular Heart sounds: normal: S1, S2 Abnormal Heart Sounds: systolic murmur, S3 Gallop - Gastrointestinal General gastrointestinal: no absent bowel sounds, decreased bowel sounds, distended, no hepatomegaly, no hyperactive bowel sounds, no normal bowel sounds , no organomegaly, no rigid, scaphoid, soft, no splenomegaly, no tenderness, no umbilical hernia, no ventral hernia - Integumentary Integumentary: no calor, no cellulitis, no cyanotic, decreased turgor, no flushed, no jaundiced, normal, no normal turgor, pale, rash, no ulcer - Neurologic She is alert oriented x1 had significant weakness in lower extremity mild contraction in the upper extremity with generalized weakness strength is only 2 out of 5. Not been able to ambulate and walk Neurologic: Patient has been flaccid in bilateral upper and lower extremities. - Labs CBC & Chem 7: 02/27/17 08:49 02/27/17 08:49 Labs: Abnormal Lab Results - Last 24 Hours (Table) 02/27/17 02/27/17 Range/Units 08:49 08:49 WBC 11.0 H (3.8-10.6) k/uL Neutrophils # 9.2 H (1.3-7.7) k/uL Potassium 3.1 L (3.5-5.1) mmol/L BUN 18 H (7-17) mg/dL Calcium 8.1 L (8.4-10.2) mg/dL Alkaline Phosphatase 227 H (38-126) U/L Total Protein 5.4 L (6.3-8.2) g/dL Albumin 2.3 L (3.5-5.0) g/dL Microbiology - Last 24 Hours (Table) 02/25/17 10:35 Blood Culture Gram Stain - Preliminary Blood Blood Culture - Preliminary Gram Neg Bacilli 02/25/17 10:35 Blood Culture Gram Stain - Preliminary Blood Blood Culture - Preliminary Gram Neg Bacilli 02/25/17 10:35 Blood Culture - Preliminary Blood 02/25/17 11:22 Blood Culture - Final Blood Assessment and Plan Plan: Assessment and Plan Plan: 1 sepsis with septicemia and gram-negative bacteremia due to suprapubic catheter associated urinary tract infection. Patient is currently on Fortaz. Consult with Dr. Hargrove. Urine culture showed E. coli that is sensitive to Fortaz. Patient has been off fluoroquinolones. 2 left lower lobe pneumonia is less likely. Continue Fortaz. 3 UTI/sepsis: Patient has suprapubic catheter will do empiric antibiotic with Levaquin awaiting for the final culture before changing antibiotics. 4 severe leukocytosis: Mostly leukemoid reaction secondary to sepsis and infection try to treat underlying disease. 5 MS: Patient has been seen urology regular basis she had significant weakness in lower extremity continue patient on baclofen along with gabapentin. 6 hypothyroidism: Continue patient on levothyroxine. 7 hyperlipidemia: Patient will continue on simvastatin. 8 restless leg syndrome: Remain on clonazepam. 9 stage II decubitus ulcer to the left buttocks and left gluteal fold, present on admission. Local wound care. Air mattress. 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 11 DVT prophylaxis: Patient be on heparin subcutaneous. 12 GI prophylaxis: Patient will be on Pepcid daily. 13. Sinus tachycardia due to her sepsis. Today IV fluid resuscitation as well as IV antibiotic. 14.CODE STATUS: Full code. 15. Prognosis is guarded.
--- NOTE | 2017-02-27 15:26 | P.PN ---
Subjective This patient is a 66-year-old female who has been admitted to hospital with acute weakness and sepsis. Patient has a known history of advanced multiple sclerosis. She was admitted as she developed suprapubic catheter sepsis. She was also noted to have evidence of significant weakness and episode of slurred speech initially prior to admission. For this reason she was advised to undergo further stroke workup including MRI of the brain and carotid Doppler ultrasound. She is now being treated for gram-negative sepsis and urinary tract infection. This is felt to be a gram-negative bacteremia. She has recurrent urinary tract infections with cystostomy catheter placement in the past due to neurogenic bladder. She continues to have some right arm weakness. We had recommended MRI of the brain but she is not capable of having it done in hospital as she is not able to fit into the MRI machine. She is being accommodated possibly for outpatient MRI and a another institution. Her carotid Doppler study was completed today and reveals 50-69% stenosis of the right ICA. All test results were reviewed today with the patient. Infectious disease is following the patient closely for her gram-negative sepsis. She is on ceftaz as per the recommendations of Dr. Hargrove. Overall he feels she is showing improvement since treatment of the underlying sepsis. Patient has not been on any specific interferon therapy for her MS for over one year. We have discussed with Dr. Hargrove today that treatment of her acute MS exacerbation with steroids cannot be done until her infection is completely resolved. We will continue close monitoring of the patient. If need be the IV steroids can be administered in the outpatient setting one she is discharged. She will require ongoing PT/ OT and possible subacute rehab placement depending on her response. Patient may consider restarting on Copaxone as primary treatment for MS. She is also interested in seeking out alternative treatments such as monoclonal antibody therapy with Ocrelizumab. This will be further discussed with the patient one she is past the acute stage of her recent flareup. We have recommended MRI of the brain for further assessment of her MS plaque burden. Patient underwent renal ultrasound which does reveal evidence of hydronephrosis on the left side. Patient does seem to be more awake and alert today. She is moving better with her right arm strength. As per the recommendation of Dr. Hargrove we will hold off on any steroid use until her sepsis and infection is completely cleared. Patient unable to have MRI of the brain due to her size and weight. This may be scheduled in the outpatient setting for her at an open MRI Center. We will continue close neurological follow-up with the patient. Her overall prognosis at this time remains guarded. Objective - Vital Signs Vital signs: Vital Signs Temp 97.3 F L 02/27/17 07:00 Pulse 104 H 02/27/17 07:00 Resp 20 02/27/17 07:00 BP 117/62 02/27/17 07:00 Pulse Ox 94 L 02/27/17 07:00 Intake & Output 02/26/17 02/27/17 02/27/17 18:59 06:59 18:59 Intake Total 670 320 Output Total 400 Balance 670 -80 Intake: Intake, IV Titration 550 320 Amount Sodium Chloride 0.9% 1, 450 320 000 ml @ 50 mls/hr IV . Q20H [facility] Rx#:[id number] cefTAZidime 2 gm In 100 Sodium Chloride 0.9% 100 ml @ 100 mls/hr IVPB Q8HR [facility] Rx#:[id number] Oral 120 Output: Urine 400 Other: Voiding Method Indwelling Catheter Indwelling Catheter Indwelling Catheter - Exam Physical examination: PHYSICAL EXAMINATION: Patient is resting comfortably in bed. VITAL SIGNS: Blood pressure is [117/62]. Heart rate is [104]. Respiration is [20 ]. Temperature is [97.3]. HEENT: Head is atraumatic, neck is supple, there were no carotid bruits. CHEST: Lungs are clear to auscultation and percussion. CARDIAC: S1, S2 normal rate and rhythm. There is no murmur. ABDOMEN: Soft and nontender. Bowel sounds are present. EXTREMITIES: There is no pedal edema. Peripheral pulses are present. Neurological examination: Patient's neurological examination is unchanged from yesterday. She continues to have bilateral arm weakness. Her speech is much improved and seems to be near baseline for today. We are waiting MRI of the brain to be done for further evaluation of her MS. - Labs CBC & Chem 7: 02/27/17 08:49 02/27/17 08:49 Labs: Abnormal Lab Results - Last 24 Hours (Table) 02/27/17 02/27/17 Range/Units 08:49 08:49 WBC 11.0 H (3.8-10.6) k/uL Neutrophils # 9.2 H (1.3-7.7) k/uL Potassium 3.1 L (3.5-5.1) mmol/L BUN 18 H (7-17) mg/dL Calcium 8.1 L (8.4-10.2) mg/dL Alkaline Phosphatase 227 H (38-126) U/L Total Protein 5.4 L (6.3-8.2) g/dL Albumin 2.3 L (3.5-5.0) g/dL Microbiology - Last 24 Hours (Table) 02/26/17 08:16 Blood Culture - Preliminary Blood No Growth after 24 hours 02/25/17 10:35 Blood Culture - Final Blood 02/25/17 10:35 Blood Culture Gram Stain - Preliminary Blood Blood Culture - Preliminary Gram Neg Bacilli 02/25/17 10:35 Blood Culture Gram Stain - Preliminary Blood Blood Culture - Preliminary Gram Neg Bacilli Assessment and Plan (1) Multiple sclerosis exacerbation Status: Acute Code(s): G35 - MULTIPLE SCLEROSIS (2) Gram-negative bacteremia Status: Acute Code(s): R78.81 - BACTEREMIA (3) Urinary tract infection associated with cystostomy catheter Status: Acute Code(s): T83.510A - I/I REACT D/T CYSTOSTOMY CATHETER, INITIAL ENCOUNTER; N39.0 - URINARY TRACT INFECTION, SITE NOT SPECIFIED (4) TIA (transient ischemic attack) Status: Acute Code(s): G45.9 - TRANSIENT CEREBRAL ISCHEMIC ATTACK, UNSPECIFIED Plan: This patient is a 66-year-old female with history of advanced multiple sclerosis. She was admitted for acute sepsis and bacteremia. She has evidence of a gram-negative bacteremia secondary to super pubic catheter infection. She has been started on ceftaz and is being followed closely by Dr. Hargrove from infectious disease. She is not on any specific interferon therapy issues discontinued all therapies for over one year for treatment of her MS. She is now reconsidering possible alternative treatments. She is not a candidate for IV steroids due to the recent gram-negative bacteremia and sepsis. Once she is completely cleared we can consider a course of steroid therapy for MS exacerbation. She is awaiting MRI of the brain to be done which may need to be done in the outpatient setting at an open MRI Center. Carotid Doppler study failed to reveal any significant carotid artery stenosis. She has noted improvement with the use of her right arm strength today. Would continue IV antibiotics as recommended by Dr. Hargrove. We are unable to start her on any IV steroid therapy for treatment of mild MS exacerbation at this time. We will wait to see if she notices improvement in general after treatment of the underlying sepsis and infection. Patient does have evidence of hydronephrosis. We would recommend she be evaluated by urology. Her overall prognosis at this time remains guarded. Case was discussed at length today with the patient' s daughter at bedside. She would benefit from PT/ OT and speech therapy in subacute rehab. We will continue close neurological follow-up of this patient during this admission.
[2017-02-27] MEDS: ATORVASTATIN 10 MG TAB PO SCH (21:55)
[2017-02-28] MEDS: LEVOTHYROXINE 25 MCG TAB PO SCH (06:24)
[2017-02-28] MEDS: LEVOTHYROXINE 100 MCG TAB PO SCH (06:24)
[2017-02-28] MEDS: GABAPENTIN 300 MG CAP PO SCH ×3 (08:12→21:30)
[2017-02-28] MEDS: ASPIRIN 81 MG CHEW PO SCH (08:12)
[2017-02-28] MEDS: NORTRIPTYLINE 25 MG CAP PO SCH ×2 (08:12→21:30)
[2017-02-28] MEDS: BACLOFEN 10 MG TAB PO SCH ×3 (08:12→21:30)
[2017-02-28 08:53] LABS: ALT 62 U/L (9-52); AST 78 U/L (14-36); Alkaline Phosphatase 406 U/L (38-126); Anion Gap 11 mmol/L; Blood Urea Nitrogen 16 mg/dL (7-17); Calcium 8.1 mg/dL (8.4-10.2); Carbon Dioxide 22 mmol/L (22-30); Chloride 105 mmol/L (98-107); Glucose 92 mg/dL (74-99); Magnesium 2.1 mg/dL (1.6-2.3); Non-African American GFR(MDRD) >60 (>60 ml/min/1.73 sqM); Potassium 3.8 mmol/L (3.5-5.1); Sodium 138 mmol/L (137-145); Total Bilirubin 0.9 mg/dL (0.2-1.3); Total Protein 5.4 g/dL (6.3-8.2)
[2017-02-28 09:00] LABS: Basophils % (A) 0 %; CH 28.2; CHCM 31.1; Eosinophils # (A) 0.3 k/uL (0-0.7); Eosinophils % (A) 2 %; HCT 38.1 % (34.0-46.0); HDW 2.51; HGB 11.7 gm/dL (11.4-16.0); Hypochromasia Slight; Luc # (Auto) 0.37; Luc % (Auto) 3; Lymphocytes # (A) 0.9 k/uL (1.0-4.8); Lymphocytes % (A) 7 %; MCHC 30.7 g/dL (31.0-37.0); MCV 91.2 fL (80.0-100.0); Mean Platelet Volume 6.9; Monocytes # (A) 0.4 k/uL (0-1.0); Monocytes % (A) 3 %; Neutrophils # (A) 10.7 k/uL (1.3-7.7); Neutrophils % (A) 84 %; RBC 4.17 m/uL (3.80-5.40); RDW 14.6 % (11.5-15.5); WBC 12.7 k/uL (3.8-10.6); WBC (Perox) 13.96
[2017-02-28] MEDS: CHOLECALCIFEROL 1,000 UNIT TAB PO SCH (12:36)
[2017-02-28] MEDS: ACETAMINOPHEN TAB 325 MG TAB PO PRN (13:39)
--- NOTE | 2017-02-28 15:08 | P.PN ---
Subjective 66-year-old female [address] Patterson[address] patient with history of obesity, multiple sclerosis with debility, recurrent kidney stone,'s post suprapubic catheter done by Dr. Gonsales last year, history of hypothyroidism and borderline diabetes who presented to the emergency department today 02/24/2017 complaining of fever chills severe generalized weakness and not feeling well with slightly bit worsening discomfort in the left upper quadrant area with significant shortness of breath with deep inspiration. Workup in the emergency room showed chest x-ray consistent with finding of consolidation and atelectasis in the left base, also urine test was slightly bit positive and surprisingly her white blood cell were over 32,000. Patient was diagnosed with sepsis/UTI and pneumonia with start gram-negative coverage and admit patient to the hospital with above problem. 02/25: Patient has had continued fevers of 101.2. Repeat blood cultures have been obtained. Initial blood cultures are showing gram-negative bacteremia. Urine culture is in process. Consult requested with Dr. Hargrove. Patient's mental status is a bit worse from yesterday she has some increased confusion. White count is improved to 17.0 02/26: Patient continues to be quite drowsy, she continues to have significant paralysis of the right upper extremity along with left upper and bilateral lower extremities, patient suffered from severe MS, she has been seen by neurology, there accommodation for MRI of the brain could not be accomplished at our institution however the patient can be transferred to [facility] for her MRI that was ordered by Dr. Wills. Her urine culture showed E. coli that is sensitive to Fortaz. The patient has been off fluoroquinolone. Dr. Hargrove has been following. 02/27: Patient is more awake today more alert that she is having some movement in the right upper extremity, we will continue with current treatment plan and the plan to send the patient back home with home PT OT and she would need a hospital bed as well. 02/28: Pulse was 110, DrClara 99.4. Repeat lactic acid was 0.7. Patient is complaining of feeling sluggish today. Liver function tests are elevated from yesterday. She is currently on Fortaz. Dr. Hargrove is planning for Rocephin. Blood culture from 41 showing no growth after 48 hours. Previous blood cultures and urine culture are positive for pansensitive E. coli. Objective - Vital Signs Vital signs: Vital Signs Temp 99.4 F 02/28/17 11:13 Pulse 110 H 02/28/17 07:00 Resp 16 02/28/17 07:00 BP 109/55 02/28/17 07:00 Pulse Ox 92 L 02/28/17 07:00 Intake & Output 02/27/17 02/28/17 02/28/17 18:59 06:59 18:59 Intake Total 800 Output Total 1500 Balance 800 -1500 Intake: Intake, IV Titration 800 Amount cefTAZidime 2 gm In 800 Sodium Chloride 0.9% 100 ml @ 100 mls/hr IVPB Q8HR [facility] Rx#:[id number] Output: Urine 1500 Other: Voiding Method Indwelling Catheter Indwelling Catheter Indwelling Catheter # Voids 1 # Bowel Movements 0 - Exam General appearance: no average body habitus, cooperative, disheveled, no mild distress, morbidly obese, no acute distress, no obese, no severe distress, no thin - EENT Eyes: no abnormal pupil, no anicteric sclerae, no disc margins sharp, no edentulous, no EOMI, no PERRLA, no fundus normal, no photophobia, no dentition normal, no poor dentition, no ptosis, scleral icterus, normal appearance ENT: hard of hearing, no hearing grossly normal, no NA/AT, normal oropharynx, no other, pharyngeal erythema, no thrush, no tonsillar exudates, no tonsillar swelling Ears: bilateral: normal, bulging - Neck Neck: no lymphadenopathy, normal ROM, no other, no rigidity, no stridor, no thyromegaly Carotids: bilateral: upstroke normal, upstroke delayed Thyroid: bilateral: normal size, enlarged - Respiratory Respiratory: left: rales, bilateral: CTA, diminished, dullness, wheezing - Cardiovascular Rhythm: regular Heart sounds: normal: S1, S2 Abnormal Heart Sounds: systolic murmur, S3 Gallop - Gastrointestinal General gastrointestinal: no absent bowel sounds, decreased bowel sounds, distended, no hepatomegaly, no hyperactive bowel sounds, no normal bowel sounds , no organomegaly, no rigid, scaphoid, soft, no splenomegaly, no tenderness, no umbilical hernia, no ventral hernia - Integumentary Integumentary: no calor, no cellulitis, no cyanotic, decreased turgor, no flushed, no jaundiced, normal, no normal turgor, pale, rash, no ulcer - Neurologic She is alert oriented x1 had significant weakness in lower extremity mild contraction in the upper extremity with generalized weakness strength is only 2 out of 5. Not been able to ambulate and walk Neurologic: CNII-XII intact - Musculoskeletal Severe weakness in the lower extremity the upper extremity is less weakness more in the right than the left. - Psychiatric Psychiatric: appropriate affect - Labs CBC & Chem 7: 02/28/17 08:16 02/28/17 08:16 Labs: Abnormal Lab Results - Last 24 Hours (Table) 02/28/17 02/28/17 Range/Units 08:16 08:16 WBC 12.7 H (3.8-10.6) k/uL MCHC 30.7 L (31.0-37.0) g/dL Neutrophils # 10.7 H (1.3-7.7) k/uL Lymphocytes # 0.9 L (1.0-4.8) k/uL Calcium 8.1 L (8.4-10.2) mg/dL AST 78 H (14-36) U/L ALT 62 H (9-52) U/L Alkaline Phosphatase 406 H (38-126) U/L Total Protein 5.4 L (6.3-8.2) g/dL Albumin 2.3 L (3.5-5.0) g/dL Microbiology - Last 24 Hours (Table) 02/26/17 08:16 Blood Culture - Preliminary Blood No Growth after 48 hours 02/25/17 10:35 Blood Culture Gram Stain - Final Blood Blood Culture - Final Escherichia coli 02/25/17 10:35 Blood Culture Gram Stain - Final Blood Blood Culture - Final Escherichia coli 02/25/17 10:35 Blood Culture - Final Blood Assessment and Plan Plan: 1 sepsis with septicemia and E. coli bacteremia due to suprapubic catheter associated urinary tract infection. Patient is currently on Levaquin. Consult with Dr. Hargrove. Urine culture and blood cultures initial and repeat are in process. 2 left lower lobe pneumonia is less likely. Continue Levaquin. 3 UTI/sepsis: Patient has suprapubic catheter will do empiric antibiotic with Levaquin awaiting for the final culture before changing antibiotics. 4 severe leukocytosis: Mostly leukemoid reaction secondary to sepsis and infection try to treat underlying disease. 5 MS: Patient has been seen urology regular basis she had significant weakness in lower extremity continue patient on baclofen along with gabapentin. 6 hypothyroidism: Continue patient on levothyroxine. 7 hyperlipidemia: Patient will continue on simvastatin. 8 restless leg syndrome: Remain on clonazepam. 9 stage II decubitus ulcer to the left buttocks and left gluteal fold, present on admission. Local wound care. Air mattress. 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 11 DVT prophylaxis: Patient be on heparin subcutaneous. 12 GI prophylaxis: Patient will be on Pepcid daily. 13. Sinus tachycardia due to her sepsis. Today IV fluid resuscitation as well as IV antibiotic. CODE STATUS: Full code. Discharge plan: [facility] or [facility] in the next 24-48 hours. Impression and plan of care have been directed as dictated by the signing physician. Mónica Smith nurse practitioner acting as scribe for signing physician. Time with Patient: Greater than 30
--- NOTE | 2017-02-28 18:48 | P.PN ---
Subjective Principal diagnosis: Sepsis This is a 66-year-old female with a past medical history significant for as. She had a suprapubic catheter placed by Dr. Gonsales for neurogenic bladder. Patient presented to [facility] emergency center due to increasing weakness, fever chills, lightheadedness. She had leukocytosis of 31.5 and temperature max of 101.2. Urinalysis was turbid, blood moderate, nitrate positive, leukoesterase large, WBCs greater than 182, WBC clumps few. Troponin was negative. Albumin 3.6. Liver function tests mildly elevated with AST of 53, ALT 53, alkaline phosphatase 181. Urine culture is in progress and blood culture is showing gram-negative bacilli. Chest x-ray shows cardiomegaly with left lower lobe atelectasis, chronic pleural reaction, difficult to exclude airspace disease. Patient was admitted to the [facility] floor and was started on IV antibiotics in the form of Levaquin and she received 1 dose of vancomycin. She continues to be afebrile and repeat blood cultures were obtained. She also had a change in mental status at admission.. History is being obtained from the patient's chart and nursing. Patient also presented to the hospital with a stage II decubitus ulcer to the left buttocks and left gluteal fold. Patient is now afebrile with a T-max of 100.3 She is more awake and alert and interactive today. No other new complaints are noted . Family's questions are answered Objective - Vital Signs Vital signs: Vital Signs Temp 98.8 F 02/28/17 16:52 Pulse 103 H 02/28/17 15:00 Resp 16 02/28/17 15:00 BP 115/56 02/28/17 15:00 Pulse Ox 91 L 02/28/17 15:00 Intake & Output 02/27/17 02/28/17 02/28/17 18:59 06:59 18:59 Intake Total 800 Output Total 1500 500 Balance 800 -1500 -500 Weight 136.078 kg Intake: Intake, IV Titration 800 Amount cefTAZidime 2 gm In 800 Sodium Chloride 0.9% 100 ml @ 100 mls/hr IVPB Q8HR [facility] Rx#:[id number] Output: Urine 1500 500 Other: Voiding Method Indwelling Catheter Indwelling Catheter Indwelling Catheter # Voids 1 # Bowel Movements 0 0 - Exam Gen: This is a 66-year-old morbidly obese female. She is sleeping in bed but arouses to verbal stimuli. She is quite confused today. HEENT: Head is atraumatic, normocephalic. Pupils equal, round. Sclerae is anicteric. NECK: Supple. No JVD. No lymphadenopathy. No thyromegaly. LUNGS: Diminished bilaterally. No intercostal retractions. HEART: Regular rate and rhythm. Systolic murmur. ABDOMEN: Soft. Bowel sounds are present. No masses. No tenderness. Suprapubic catheter in place draining clear urine with noted sediment. Stage II decubitus ulcer to the left buttocks and left gluteal fold. EXTREMITIES: 1+ pedal edema. No calf tenderness. NEUROLOGICAL: Patient is awake, alert and oriented x3 patient does move upper extremities on command. has weakness much greater in the left arm than the right - Labs CBC & Chem 7: 02/28/17 08:16 02/28/17 08:16 Labs: Abnormal Lab Results - Last 24 Hours (Table) 02/28/17 02/28/17 Range/Units 08:16 08:16 WBC 12.7 H (3.8-10.6) k/uL MCHC 30.7 L (31.0-37.0) g/dL Neutrophils # 10.7 H (1.3-7.7) k/uL Lymphocytes # 0.9 L (1.0-4.8) k/uL Calcium 8.1 L (8.4-10.2) mg/dL AST 78 H (14-36) U/L ALT 62 H (9-52) U/L Alkaline Phosphatase 406 H (38-126) U/L Total Protein 5.4 L (6.3-8.2) g/dL Albumin 2.3 L (3.5-5.0) g/dL Microbiology - Last 24 Hours (Table) 02/26/17 08:16 Blood Culture - Preliminary Blood No Growth after 48 hours 02/25/17 10:35 Blood Culture Gram Stain - Final Blood Blood Culture - Final Escherichia coli 02/25/17 10:35 Blood Culture Gram Stain - Final Blood Blood Culture - Final Escherichia coli Laboratory Results WBC 12.7 k/uL (3.8-10.6) H 02/28/17 08:16 RBC 4.17 m/uL (3.80-5.40) 02/28/17 08:16 Hgb 11.7 gm/dL (11.4-16.0) 02/28/17 08:16 Hct 38.1 % (34.0-46.0) 02/28/17 08:16 MCV 91.2 fL (80.0-100.0) 02/28/17 08:16 MCH 28.0 pg (25.0-35.0) 02/28/17 08:16 MCHC 30.7 g/dL (31.0-37.0) L 02/28/17 08:16 RDW 14.6 % (11.5-15.5) 02/28/17 08:16 Plt Count 253 k/uL (150-450) 02/28/17 08:16 Neutrophils % 84 % 02/28/17 08:16 Neutrophils % (Manual) 84.0 % 02/24/17 11:14 Band Neutrophils % 11.0 % 02/24/17 11:14 Lymphocytes % 7 % 02/28/17 08:16 Lymphocytes % (Manual) 1.5 % 02/24/17 11:14 Monocytes % 3 % 02/28/17 08:16 Monocytes % (Manual) 3.0 % 02/24/17 11:14 Eosinophils % 2 % 02/28/17 08:16 Eosinophils % (Manual) 0.5 % 02/24/17 11:14 Basophils % 0 % 02/28/17 08:16 Neutrophils # 10.7 k/uL (1.3-7.7) H 02/28/17 08:16 Neutrophils # (Manual) 29.9 k/uL (1.3-7.7) H 02/24/17 11:14 Lymphocytes # 0.9 k/uL (1.0-4.8) L 02/28/17 08:16 Lymphocytes # (Manual) 0.5 k/uL (1.0-4.8) L 02/24/17 11:14 Monocytes # 0.4 k/uL (0-1.0) 02/28/17 08:16 Monocytes # (Manual) 0.9 k/uL (0-1.0) 02/24/17 11:14 Eosinophils # 0.3 k/uL (0-0.7) 02/28/17 08:16 Eosinophils # (Manual) 0.2 k/uL (0-0.7) 02/24/17 11:14 Basophils # 0.0 k/uL (0-0.2) 02/28/17 08:16 Nucleated RBCs 0 /100 WBC (0-0) 02/24/17 11:14 Toxic Vacuolation Present 02/24/17 11:14 RBC Morphology Normal 02/24/17 11:14 Hypochromasia Slight 02/28/17 08:16 PT 12.6 sec (9.0-12.0) H 02/24/17 11:14 INR 1.3 (<1.1) 02/24/17 11:14 APTT 25.5 sec (22.0-30.0) 02/24/17 11:14 Sodium 138 mmol/L (137-145) 02/28/17 08:16 Potassium 3.8 mmol/L (3.5-5.1) 02/28/17 08:16 Chloride 105 mmol/L (98-107) 02/28/17 08:16 Carbon Dioxide 22 mmol/L (22-30) 02/28/17 08:16 Anion Gap 11 mmol/L 02/28/17 08:16 BUN 16 mg/dL (7-17) 02/28/17 08:16 Creatinine 0.63 mg/dL (0.52-1.04) 02/28/17 08:16 Est GFR (MDRD) Af Amer >60 (>60 ml/min/1.73 sqM) 02/28/17 08:16 Est GFR (MDRD) Non-Af >60 (>60 ml/min/1.73 sqM) 02/28/17 08:16 Glucose 92 mg/dL (74-99) 02/28/17 08:16 POC Glucose (mg/dL) 91 mg/dL (75-99) 02/25/17 07:21 POC Glu Steam Cleaner ID [place] 02/25/17 07:21 Plasma Lactic Acid Aryan 0.7 mmol/L (0.7-2.0) 02/28/17 12:50 Calcium 8.1 mg/dL (8.4-10.2) L 02/28/17 08:16 Phosphorus 3.9 mg/dL (2.5-4.5) 02/24/17 11:14 Magnesium 2.1 mg/dL (1.6-2.3) 02/28/17 08:16 Total Bilirubin 0.9 mg/dL (0.2-1.3) 02/28/17 08:16 AST 78 U/L (14-36) H 02/28/17 08:16 ALT 62 U/L (9-52) H 02/28/17 08:16 Alkaline Phosphatase 406 U/L (38-126) H 02/28/17 08:16 Troponin I <0.012 ng/mL (0.000-0.034) 02/24/17 11:14 Total Protein 5.4 g/dL (6.3-8.2) L 02/28/17 08:16 Albumin 2.3 g/dL (3.5-5.0) L 02/28/17 08:16 Triglycerides 186 mg/dL (<150) H 02/26/17 08:16 Cholesterol 105 mg/dL (<200) 02/26/17 08:16 LDL Cholesterol, Calc 54 mg/dL (0-99) 02/26/17 08:16 HDL Cholesterol 14 mg/dL (40-60) L 02/26/17 08:16 Urine Color Yellow 02/24/17 12:50 Urine Appearance Turbid (Clear) H 02/24/17 12:50 Urine pH 5.0 (5.0-8.0) 02/24/17 12:50 Ur Specific [place] 1.010 (1.001-1.035) 02/24/17 12:50 Urine Protein Trace (Negative) H 02/24/17 12:50 Urine Glucose (UA) Negative (Negative) 02/24/17 12:50 Urine Ketones 1+ (Negative) H 02/24/17 12:50 Urine Blood Moderate (Negative) H 02/24/17 12:50 Urine Nitrite Positive (Negative) H 02/24/17 12:50 Urine Bilirubin Negative (Negative) 02/24/17 12:50 Urine Urobilinogen <2.0 mg/dL (<2.0) 02/24/17 12:50 Ur Leukocyte Esterase Large (Negative) H 02/24/17 12:50 Urine RBC 24 /hpf (0-5) H 02/24/17 12:50 Urine WBC >182 /hpf (0-5) H 02/24/17 12:50 Urine WBC Clumps Few /hpf (None) H 02/24/17 12:50 Ur Squamous Epith Cells 1 /hpf (0-4) 02/24/17 12:50 Urine Bacteria Few /hpf (None) H 02/24/17 12:50 Urine Mucus Few /hpf (None) H 02/24/17 12:50 Influenza Type A RNA Not Detected (Not Detectd) 02/25/17 15:15 Influenza Type B (PCR) Not Detected (Not Detectd) 02/25/17 15:15 Microbiology 02/26/17 08:16 Blood Blood Culture - Preliminary No Growth after 48 hours 02/25/17 10:35 Blood Blood Culture Gram Stain - Final 02/25/17 10:35 Blood Blood Culture - Final Escherichia coli 02/25/17 10:35 Blood Blood Culture Gram Stain - Final 02/25/17 10:35 Blood Blood Culture - Final Escherichia coli 02/25/17 10:35 Blood Blood Culture - Final 02/24/17 12:50 Urine,Catheterized Urine Culture - Final Escherichia coli 02/24/17 11:14 Blood Blood Culture - Final 02/25/17 11:22 Blood Blood Culture - Final 02/24/17 11:22 Blood Blood Culture Gram Stain - Final 02/24/17 11:22 Blood Blood Culture - Final Escherichia coli Assessment and Plan (1) Gram-negative bacteremia Narrative/Plan: 66-year-old woman who has MS who is developed evidence of gram- negative sepsis from the urinary system. This is discussed with the and daughter were present. She's had several mild urinary tract infections not requiring hospitalization. They're wondering if they could change her urinary catheter more frequently. At this time there is not enough data to suggest that this would be helpful. However improved hygiene and possibly urinary acidification may be helpful. In the minimum cranberry products might be helpful. As of now she is evidence of Escherichia coli in her urine and her blood. Final cultures are pending. Because of her prior difficulties with ciprofloxacin, levofloxacin was changed to ceftaz again to ensure we were covering for E. coli as well as Pseudomonas bacteriuria most bacteremia. She actually is improving at this point in time. Final cultures are available. Only E. coli has been isolated. Antibiotic therapy altered to Rocephin 2 g daily. We'll plan 14 days We'll ask for a PICC line Renal ultrasound shows a left hydronephrosis Something they are not aware of. We'll ask primary service if urology consult as indicated. She's had multiple urinary infections and had significant bacteremic event during this stay. Appears to be going to extended care for rehab at discharge. Status: Acute (2) Multiple sclerosis exacerbation Status: Acute (3) Urinary tract infection associated with cystostomy catheter Status: Acute
--- NOTE | 2017-02-28 20:13 | CT ---
EXAMINATION TYPE: CT abdomen pelvis wo con DATE OF EXAM: 02/28/2017 7:34 PM COMPARISON: NONE HISTORY: Pt states of flank pain. CT DLP: 2237.5 mGycm Automated exposure control for dose reduction was used. TECHNIQUE: Helical acquisition of images was performed from the lung bases through the pelvis. FINDINGS: There is patchy atelectasis at the lung bases and more on the left side. There is a left pleural effu kal. Liver shows no focal defect. Bile ducts are not dilated. There is no sign of a pancreatic mass. Splee n is intact. There are numerous calcified gallstones. There is moderate left-sided hydronephrosis. There is hydroureter and a 1 cm calculus apparently at t he left ureteral vesicle junction. Bladder is almost empty. There is no retroperitoneal adenopathy. R ight kidney shows no hydronephrosis. There is no ascites. I see no sign of a bowel obstruction. There is a 1 cm calculus in the lower pole left kidney. I see no bony destructive process. There is a left hip nailing noted. There is a abdominal wall hernia on the left side. Appendix is not seen. There is no sign of appendicitis. IMPRESSION: LEFT PLEURAL EFFUSION AND PATCHY ATELECTASIS AT THE LUNG BASES. LARGE STONE AT THE LEFT URETERAL VESICLE JUNCTION WITH LEFT-SIDED HYDRONEPHROSIS AND HYDROURETER. THE RE IS MILD FAT STRANDING IN THE LEFT ANTERIOR PARARENAL SPACE. IT IS NOT CLEAR IF THIS IS RELATED TO THE HYDRONEPHROSIS OR 2 SOME INFLAMMATORY CHANGES ASSOCIATED WITH THE LEFT COLON. I DO NOT SEE ANY CO LONIC WALL THICKENING TO SUGGEST A DEFINITE INFLAMMATORY COLONIC PROCESS. LARGE LEFT RENAL CALCULUS. MULTIPLE CALCIFIED GALLSTONES.
[2017-02-28] MEDS: cefTRIAXone 2,000 MG in SODIUM CHLORIDE 0.9% 100 ML IVPB SCH (21:24)
[2017-02-28] MEDS: ATORVASTATIN 10 MG TAB PO SCH (21:30)
[2017-02-28] MEDS: SODIUM CHLORIDE 0.9% 1,000 ML IV SCH (21:33)
--- NOTE | 2017-02-28 22:03 | CONS ---
DATE OF CONSULTATION: 02/28/2017. REASON FOR CONSULTATION: Left hydronephrosis. HISTORY OF PRESENT ILLNESS: The patient is 66-year-old female admitted on 02/24 through the emergency room for evaluation of a fever coupled with generalized weakness. Patient also said she had back pain which was worse on the left side than the right side. Her white blood count at the time of admission 31,500. Urinalysis through her suprapubic catheter suggested an infection. A chest x-ray suggested a possible left lower lobe infiltrate. The patient was started on Levaquin and vancomycin that has eventually been switched to ceftriaxone based on results of her urine and blood culture. Patient is afebrile and generally improved. Renal ultrasound on 02/27 suggestive of moderate left hydronephrosis and a somewhat lobulated benign-appearing right kidney. Urologic consultation was requested for further evaluation. The patient has a history of multiple sclerosis and has been treated with a suprapubic catheter since 2007. The catheter is changed on a monthly basis by visiting nurse. She currently has a 20 Irish suprapubic catheter. She did have a large bladder calculus treated with cystolithotripsy lithopexy in 04/[address] Gonsales. She also has undergone left pyeloplasty in the past, but this was over 10 years ago. Patient's past medical history is significant in regard to morbid obesity. She also has a history of DVT involving the left leg. Current medications include: 1. Aspirin. 2. Lipitor. 3. Lioresal. 4. Ceftriaxone. 5. Vitamin D3. 6. Neurontin. 7. Cephulac. 8. Synthroid. 9. Pamelor. 10. Restoril. The patient has previously undergone umbilical hernia repair, bilateral tubal ligation, bilateral carpal tunnel surgery, surgery on her left leg and the urologic surgeries described above. Physical exam reveals an obese 66-year-old female who is alert and oriented. Patient is afebrile; however earlier today, she had a temperature of 100.3. Blood pressure 115/56. HEENT: No supraclavicular or cervical adenopathy. CHEST: Breathing is unlabored. ABDOMEN: Morbid obesity. No focal tenderness. A suprapubic catheter is in place and is draining clear urine. No flank tenderness. Laboratory evaluation from today included a white blood count of 12,700, BUN 16, creatinine 0.63. IMPRESSION: Left hydronephrosis. It is unclear whether this is new or chronic. The patient has had a suprapubic catheter for 9 years and it is possible that she has developed some thickening of the bladder wall with secondary obstruction of the distal left ureter. It is also possible that the patient could have a small calculus in the left ureter, but unfortunately, due to her obesity it would be impossible to evaluate the ureter by ultrasound. It is also possible that the patient's left hydronephrosis is chronic and related to her previous pyeloplasty. RECOMMENDATION: In view of the patient's recent Escherichia coli bacteremia, I believe that it would be reasonable to proceed with a noncontrast CT scan of the abdomen and pelvis to ensure that she has no evidence of ureteral calculus as a contributory problem at the present time. Dr. Gonsales has seen the patient in the past and will follow up with her. Thank you for the allowing me to participate in the care of this patient. SID
--- NOTE | 2017-02-28 23:05 | P.PN ---
Subjective This patient is a 66-year-old female who has been admitted to hospital with acute weakness and sepsis. Patient has a known history of advanced multiple sclerosis. She was admitted as she developed suprapubic catheter sepsis. She was also noted to have evidence of significant weakness and episode of slurred speech initially prior to admission. For this reason she was advised to undergo further stroke workup including MRI of the brain and carotid Doppler ultrasound. She is now being treated for gram-negative sepsis and urinary tract infection. This is felt to be a gram-negative bacteremia. She has recurrent urinary tract infections with cystostomy catheter placement in the past due to neurogenic bladder. She continues to have some right arm weakness. We had recommended MRI of the brain but she is not capable of having it done in hospital as she is not able to fit into the MRI machine. She is being accommodated possibly for outpatient MRI and a another institution. Her carotid Doppler study was completed today and reveals 50-69% stenosis of the right ICA. All test results were reviewed today with the patient. Infectious disease is following the patient closely for her gram-negative sepsis. She is on ceftaz as per the recommendations of Dr. Hargrove. Overall he feels she is showing improvement since treatment of the underlying sepsis. Patient has not been on any specific interferon therapy for her MS for over one year. We have discussed with Dr. Hargrove today that treatment of her acute MS exacerbation with steroids cannot be done until her infection is completely resolved. We will continue close monitoring of the patient. If need be the IV steroids can be administered in the outpatient setting one she is discharged. She will require ongoing PT/ OT and possible subacute rehab placement depending on her response. Patient may consider restarting on Copaxone as primary treatment for MS. She is also interested in seeking out alternative treatments such as monoclonal antibody therapy with Ocrelizumab. This will be further discussed with the patient one she is past the acute stage of her recent flareup. We have recommended MRI of the brain for further assessment of her MS plaque burden. Patient underwent renal ultrasound which does reveal evidence of hydronephrosis on the left side. Patient does seem to be more awake and alert today. She is moving better with her right arm strength. As per the recommendation of Dr. Hargrove we will hold off on any steroid use until her sepsis and infection is completely cleared. Patient unable to have MRI of the brain due to her size and weight. This may be scheduled in the outpatient setting for her at an open MRI Center. We will also try to obtain a computed tomography scan of the brain tomorrow morning for further assessment. She continues to have waxing and waning of her right arm strength. We will continue close neurological follow-up with the patient. Her overall prognosis at this time remains guarded. Objective - Vital Signs Vital signs: Vital Signs Temp 98.8 F 02/28/17 16:52 Pulse 103 H 02/28/17 15:00 Resp 16 02/28/17 15:00 BP 115/56 02/28/17 15:00 Pulse Ox 91 L 02/28/17 15:00 Intake & Output 02/28/17 02/28/17 03/01/17 06:59 18:59 06:59 Output Total 1500 500 Balance -1500 -500 Weight 136.078 kg Output: Urine 1500 500 Other: Voiding Method Indwelling Catheter Indwelling Catheter # Voids 1 0 # Bowel Movements 0 0 0 - Exam Physical examination: PHYSICAL EXAMINATION: Patient is resting comfortably in bed. VITAL SIGNS: Blood pressure is [115/56]. Heart rate is [103]. Respiration is [16 ]. Temperature is [98.3]. HEENT: Head is atraumatic, neck is supple, there were no carotid bruits. CHEST: Lungs are clear to auscultation and percussion. CARDIAC: S1, S2 normal rate and rhythm. There is no murmur. ABDOMEN: Soft and nontender. Bowel sounds are present. EXTREMITIES: There is no pedal edema. Peripheral pulses are present. Neurological examination: Patient's neurological examination is unchanged from yesterday. She continues to have bilateral arm weakness. Her speech is much improved and seems to be near baseline for today. We are waiting MRI of the brain to be done for further evaluation of her MS. - Labs CBC & Chem 7: 02/28/17 08:16 02/28/17 08:16 Labs: Abnormal Lab Results - Last 24 Hours (Table) 02/28/17 02/28/17 Range/Units 08:16 08:16 WBC 12.7 H (3.8-10.6) k/uL MCHC 30.7 L (31.0-37.0) g/dL Neutrophils # 10.7 H (1.3-7.7) k/uL Lymphocytes # 0.9 L (1.0-4.8) k/uL Calcium 8.1 L (8.4-10.2) mg/dL AST 78 H (14-36) U/L ALT 62 H (9-52) U/L Alkaline Phosphatase 406 H (38-126) U/L Total Protein 5.4 L (6.3-8.2) g/dL Albumin 2.3 L (3.5-5.0) g/dL Microbiology - Last 24 Hours (Table) 02/26/17 08:16 Blood Culture - Preliminary Blood No Growth after 48 hours 02/25/17 10:35 Blood Culture Gram Stain - Final Blood Blood Culture - Final Escherichia coli 02/25/17 10:35 Blood Culture Gram Stain - Final Blood Blood Culture - Final Escherichia coli Assessment and Plan (1) Multiple sclerosis exacerbation Status: Acute Code(s): G35 - MULTIPLE SCLEROSIS (2) Gram-negative bacteremia Status: Acute Code(s): R78.81 - BACTEREMIA (3) Urinary tract infection associated with cystostomy catheter Status: Acute Code(s): T83.510A - I/I REACT D/T CYSTOSTOMY CATHETER, INITIAL ENCOUNTER; N39.0 - URINARY TRACT INFECTION, SITE NOT SPECIFIED (4) TIA (transient ischemic attack) Status: Acute Code(s): G45.9 - TRANSIENT CEREBRAL ISCHEMIC ATTACK, UNSPECIFIED Plan: This patient is a 66-year-old female with long-standing history of multiple sclerosis. She was admitted with increased sepsis and weakness. She is being treated for a suprapubic infection and urinary tract infection. Infectious disease is following the patient closely. Patient unable to have MRI of the brain due to her size and girth. We are recommending a computed tomography scan of the brain to be done tomorrow. Her speech is improved but she still demonstrated some right arm weakness. She is unable to start on any steroids due to her recent and ongoing sepsis. We will continue close monitoring of the patient. Overall prognosis at this time remains very guarded.
[2017-03-01] MEDS: ACETAMINOPHEN TAB 325 MG TAB PO PRN ×2 (01:37→23:15)
[2017-03-01] MEDS: MORPHINE SULFATE 4 MG/ML SYRINGE IV PRN (03:49)
[2017-03-01] MEDS: LEVOTHYROXINE 25 MCG TAB PO SCH (06:28)
[2017-03-01] MEDS: LEVOTHYROXINE 100 MCG TAB PO SCH (06:29)
--- NOTE | 2017-03-01 08:31 | CT ---
EXAMINATION TYPE: CT brain wo con DATE OF EXAM: 03/01/2017 8:09 AM COMPARISON: NONE HISTORY: 66-year-old female with right sided, right arm weakness TECHNIQUE: Examination was done in axial plane without intravenous contrast. Coronal and sagittal r econstructions performed. CT DLP: 1195 mGycm Automated exposure control for dose reduction was used. FINDINGS: There is no evidence of acute intracranial hemorrhage, acute ischemic changes, mass, mass-effect, or extra-axial fluid collection. There is no effacement of cerebral sulci or basal subarachnoid cister ns. There is no hydrocephalus. There is no midline shift. [place]-white matter distinction is preserv ed. Mild generalized supratentorial volume loss. There are patchy periventricular white matter hypodensi ties and additional deep white matter hypodensities within the left mishra radiata and right centrum semiovale. Old lacunar infarcts in the basal ganglia. There is frothy partial opacification in the left sphenoid sinus and mild to moderate mucosal thicken ing in the anterior ethmoid air cells. Cerumen within the left greater than right external auditory c anals. Mastoid air cells well pneumatized. Orbits and globes are intact. IMPRESSION: 1. No acute intracranial abnormality seen. Mild atrophy and moderate patchy burden of chronic small v essel ischemic disease. 2. Correlate for acute left sphenoid sinusitis.
--- NOTE | 2017-03-01 10:10 | P.PN ---
Progress Note - Text The CT scan shows evidence of left hydroureteronephrosis due to a 1 cm left UPJ calculus. She remains febrile. Options to relieve obstruction are stent placement versus nephrostomy tube insertion. Nephrostomy tube insertion may be complicated by the patient's size, so I intend to place a ureteral stent later today. I was unable to discuss this with the patient this morning, as she was off the floor for a CT scan. I will discuss this with her preoperatively.
[2017-03-01 10:12] LABS: CH 28.5; CHCM 31.9; HCT 35.7 % (34.0-46.0); HDW 2.55; HGB 11.3 gm/dL (11.4-16.0); MCH 28.5 pg (25.0-35.0); MCHC 31.7 g/dL (31.0-37.0); MCV 89.8 fL (80.0-100.0); Mean Platelet Volume 7.7; RBC 3.97 m/uL (3.80-5.40); RDW 14.8 % (11.5-15.5); WBC 13.9 k/uL (3.8-10.6)
[2017-03-01 10:17] LABS: ALT 81 U/L (9-52); AST 104 U/L (14-36); Alkaline Phosphatase 407 U/L (38-126); Anion Gap 8 mmol/L; Blood Urea Nitrogen 19 mg/dL (7-17); Calcium 8.1 mg/dL (8.4-10.2); Carbon Dioxide 26 mmol/L (22-30); Chloride 107 mmol/L (98-107); Glucose 86 mg/dL (74-99); Potassium 4.3 mmol/L (3.5-5.1); Sodium 141 mmol/L (137-145); Total Bilirubin 0.6 mg/dL (0.2-1.3); Total Protein 5.2 g/dL (6.3-8.2)
[2017-03-01] MEDS ORDERED: FUROSEMIDE 10 MG/ML 2 ML VIAL IV ONE (10:54)
[2017-03-01 10:56] LABS: Non-African American GFR(MDRD) >60 (>60 ml/min/1.73 sqM)
[2017-03-01] MEDS: ASPIRIN 81 MG CHEW PO SCH (11:12)
[2017-03-01] MEDS: GABAPENTIN 300 MG CAP PO SCH ×3 (11:13→21:19)
[2017-03-01] MEDS: BACLOFEN 10 MG TAB PO SCH ×3 (11:13→21:19)
[2017-03-01] MEDS: NORTRIPTYLINE 25 MG CAP PO SCH ×4 (11:13→21:19)
[2017-03-01] MEDS: cefTRIAXone 2,000 MG in SODIUM CHLORIDE 0.9% 100 ML IVPB SCH (11:13)
[2017-03-01] MEDS: CHOLECALCIFEROL 1,000 UNIT TAB PO SCH (12:38)
--- NOTE | 2017-03-01 13:08 | P.PN ---
Subjective Principal diagnosis: Sepsis This is a 66-year-old female with a past medical history significant for as. She had a suprapubic catheter placed by Dr. Gonsales for neurogenic bladder. Patient presented to [facility] due to increasing weakness, fever chills, lightheadedness. She had leukocytosis of 31.5 and temperature max of 101.2. Urinalysis was turbid, blood moderate, nitrate positive, leukoesterase large, WBCs greater than 182, WBC clumps few. Troponin was negative. Albumin 3.6. Liver function tests mildly elevated with AST of 53, ALT 53, alkaline phosphatase 181. Urine culture is in progress and blood culture is showing gram-negative bacilli. Chest x-ray shows cardiomegaly with left lower lobe atelectasis, chronic pleural reaction, difficult to exclude airspace disease. Patient was admitted to the [facility] floor and was started on IV antibiotics in the form of Levaquin and she received 1 dose of vancomycin. She continues to be afebrile and repeat blood cultures were obtained. She also had a change in mental status at admission.. History is being obtained from the patient's chart and nursing. Patient also presented to the hospital with a stage II decubitus ulcer to the left buttocks and left gluteal fold. Patient is now afebrile with a T-max of 100.3 She is more awake and alert and interactive today. No other new complaints are noted . Patient has not been seen by urology. They do agree that there is obstruction to the left ureter. Stone was noted. There is also some stranding to the left kidney. Objective - Vital Signs Vital signs: Vital Signs Temp 97.8 F 03/01/17 07:00 Pulse 102 H 03/01/17 07:00 Resp 20 03/01/17 07:00 BP 112/56 03/01/17 07:00 Pulse Ox 93 L 03/01/17 07:00 Intake & Output 02/28/17 03/01/17 03/01/17 18:59 06:59 18:59 Intake Total 700 Output Total 500 2000 Balance -500 -1300 Weight 136.078 kg Intake: Oral 700 Output: Urine 500 2000 Other: Voiding Method Indwelling Catheter Indwelling Catheter # Voids 0 # Bowel Movements 0 0 - Exam Gen: This is a 66-year-old morbidly obese female. She is sleeping in bed but arouses to verbal stimuli. She is quite confused today. HEENT: Head is atraumatic, normocephalic. Pupils equal, round. Sclerae is anicteric. NECK: Supple. No JVD. No lymphadenopathy. No thyromegaly. LUNGS: Diminished bilaterally. No intercostal retractions. HEART: Regular rate and rhythm. Systolic murmur. ABDOMEN: Soft. Bowel sounds are present. No masses. No tenderness. Suprapubic catheter in place draining clear urine with noted sediment. Stage II decubitus ulcer to the left buttocks and left gluteal fold. EXTREMITIES: 1+ pedal edema. No calf tenderness. NEUROLOGICAL: Patient is awake, alert and oriented x3 patient does move upper extremities on command. has weakness much greater in the left arm than the right - Labs CBC & Chem 7: 03/01/17 09:16 03/01/17 09:16 Labs: Abnormal Lab Results - Last 24 Hours (Table) 03/01/17 03/01/17 Range/Units 09:16 09:16 WBC 13.9 H (3.8-10.6) k/uL Hgb 11.3 L (11.4-16.0) gm/dL BUN 19 H (7-17) mg/dL Calcium 8.1 L (8.4-10.2) mg/dL AST 104 H (14-36) U/L ALT 81 H (9-52) U/L Alkaline Phosphatase 407 H (38-126) U/L Total Protein 5.2 L (6.3-8.2) g/dL Albumin 2.2 L (3.5-5.0) g/dL Microbiology - Last 24 Hours (Table) 02/26/17 08:16 Blood Culture - Preliminary Blood No Growth after 72 hours Laboratory Results WBC 13.9 k/uL (3.8-10.6) H 03/01/17 09:16 RBC 3.97 m/uL (3.80-5.40) 03/01/17 09:16 Hgb 11.3 gm/dL (11.4-16.0) L 03/01/17 09:16 Hct 35.7 % (34.0-46.0) 03/01/17 09:16 MCV 89.8 fL (80.0-100.0) 03/01/17 09:16 MCH 28.5 pg (25.0-35.0) 03/01/17 09:16 MCHC 31.7 g/dL (31.0-37.0) 03/01/17 09:16 RDW 14.8 % (11.5-15.5) 03/01/17 09:16 Plt Count 327 k/uL (150-450) 03/01/17 09:16 Neutrophils % 84 % 02/28/17 08:16 Neutrophils % (Manual) 84.0 % 02/24/17 11:14 Band Neutrophils % 11.0 % 02/24/17 11:14 Lymphocytes % 7 % 02/28/17 08:16 Lymphocytes % (Manual) 1.5 % 02/24/17 11:14 Monocytes % 3 % 02/28/17 08:16 Monocytes % (Manual) 3.0 % 02/24/17 11:14 Eosinophils % 2 % 02/28/17 08:16 Eosinophils % (Manual) 0.5 % 02/24/17 11:14 Basophils % 0 % 02/28/17 08:16 Neutrophils # 10.7 k/uL (1.3-7.7) H 02/28/17 08:16 Neutrophils # (Manual) 29.9 k/uL (1.3-7.7) H 02/24/17 11:14 Lymphocytes # 0.9 k/uL (1.0-4.8) L 02/28/17 08:16 Lymphocytes # (Manual) 0.5 k/uL (1.0-4.8) L 02/24/17 11:14 Monocytes # 0.4 k/uL (0-1.0) 02/28/17 08:16 Monocytes # (Manual) 0.9 k/uL (0-1.0) 02/24/17 11:14 Eosinophils # 0.3 k/uL (0-0.7) 02/28/17 08:16 Eosinophils # (Manual) 0.2 k/uL (0-0.7) 02/24/17 11:14 Basophils # 0.0 k/uL (0-0.2) 02/28/17 08:16 Nucleated RBCs 0 /100 WBC (0-0) 02/24/17 11:14 Toxic Vacuolation Present 02/24/17 11:14 RBC Morphology Normal 02/24/17 11:14 Hypochromasia Slight 02/28/17 08:16 PT 12.6 sec (9.0-12.0) H 02/24/17 11:14 INR 1.3 (<1.1) 02/24/17 11:14 APTT 25.5 sec (22.0-30.0) 02/24/17 11:14 Sodium 141 mmol/L (137-145) 03/01/17 09:16 Potassium 4.3 mmol/L (3.5-5.1) 03/01/17 09:16 Chloride 107 mmol/L (98-107) 03/01/17 09:16 Carbon Dioxide 26 mmol/L (22-30) 03/01/17 09:16 Anion Gap 8 mmol/L 03/01/17 09:16 BUN 19 mg/dL (7-17) H 03/01/17 09:16 Creatinine 0.67 mg/dL (0.52-1.04) 03/01/17 09:16 Est GFR (MDRD) Af Amer >60 (>60 ml/min/1.73 sqM) 03/01/17 09:16 Est GFR (MDRD) Non-Af >60 (>60 ml/min/1.73 sqM) 03/01/17 09:16 Glucose 86 mg/dL (74-99) 03/01/17 09:16 POC Glucose (mg/dL) 91 mg/dL (75-99) 02/25/17 07:21 POC Glu [employer] [place] 02/25/17 07:21 Plasma Lactic Acid Aryan 0.7 mmol/L (0.7-2.0) 02/28/17 12:50 Calcium 8.1 mg/dL (8.4-10.2) L 03/01/17 09:16 Phosphorus 3.9 mg/dL (2.5-4.5) 02/24/17 11:14 Magnesium 2.1 mg/dL (1.6-2.3) 02/28/17 08:16 Total Bilirubin 0.6 mg/dL (0.2-1.3) 03/01/17 09:16 AST 104 U/L (14-36) H 03/01/17 09:16 ALT 81 U/L (9-52) H 03/01/17 09:16 Alkaline Phosphatase 407 U/L (38-126) H 03/01/17 09:16 Troponin I <0.012 ng/mL (0.000-0.034) 02/24/17 11:14 Total Protein 5.2 g/dL (6.3-8.2) L 03/01/17 09:16 Albumin 2.2 g/dL (3.5-5.0) L 03/01/17 09:16 Triglycerides 186 mg/dL (<150) H 02/26/17 08:16 Cholesterol 105 mg/dL (<200) 02/26/17 08:16 LDL Cholesterol, Calc 54 mg/dL (0-99) 02/26/17 08:16 HDL Cholesterol 14 mg/dL (40-60) L 02/26/17 08:16 Urine Color Yellow 02/24/17 12:50 Urine Appearance Turbid (Clear) H 02/24/17 12:50 Urine pH 5.0 (5.0-8.0) 02/24/17 12:50 Ur Specific [place] 1.010 (1.001-1.035) 02/24/17 12:50 Urine Protein Trace (Negative) H 02/24/17 12:50 Urine Glucose (UA) Negative (Negative) 02/24/17 12:50 Urine Ketones 1+ (Negative) H 02/24/17 12:50 Urine Blood Moderate (Negative) H 02/24/17 12:50 Urine Nitrite Positive (Negative) H 02/24/17 12:50 Urine Bilirubin Negative (Negative) 02/24/17 12:50 Urine Urobilinogen <2.0 mg/dL (<2.0) 02/24/17 12:50 Ur Leukocyte Esterase Large (Negative) H 02/24/17 12:50 Urine RBC 24 /hpf (0-5) H 02/24/17 12:50 Urine WBC >182 /hpf (0-5) H 02/24/17 12:50 Urine WBC Clumps Few /hpf (None) H 02/24/17 12:50 Ur Squamous Epith Cells 1 /hpf (0-4) 02/24/17 12:50 Urine Bacteria Few /hpf (None) H 02/24/17 12:50 Urine Mucus Few /hpf (None) H 02/24/17 12:50 Influenza Type A RNA Not Detected (Not Detectd) 02/25/17 15:15 Influenza Type B (PCR) Not Detected (Not Detectd) 02/25/17 15:15 Microbiology 02/26/17 08:16 Blood Blood Culture - Preliminary No Growth after 72 hours 02/25/17 10:35 Blood Blood Culture Gram Stain - Final 02/25/17 10:35 Blood Blood Culture - Final Escherichia coli 02/25/17 10:35 Blood Blood Culture Gram Stain - Final 02/25/17 10:35 Blood Blood Culture - Final Escherichia coli 02/25/17 10:35 Blood Blood Culture - Final 02/24/17 12:50 Urine,Catheterized Urine Culture - Final Escherichia coli 02/24/17 11:14 Blood Blood Culture - Final 02/25/17 11:22 Blood Blood Culture - Final 02/24/17 11:22 Blood Blood Culture Gram Stain - Final 02/24/17 11:22 Blood Blood Culture - Final Escherichia coli Assessment and Plan (1) Gram-negative bacteremia Narrative/Plan: 66-year-old woman who has MS who is developed evidence of gram- negative sepsis from the urinary system. This is discussed with the and daughter were present. She's had several mild urinary tract infections not requiring hospitalization. They're wondering if they could change her urinary catheter more frequently. At this time there is not enough data to suggest that this would be helpful. However improved hygiene and possibly urinary acidification may be helpful. In the minimum cranberry products might be helpful. As of now she is evidence of Escherichia coli in her urine and her blood. Final cultures are pending. Because of her prior difficulties with ciprofloxacin, levofloxacin was changed to ceftaz again to ensure we were covering for E. coli as well as Pseudomonas bacteriuria most bacteremia. She actually is improving at this point in time. Final cultures are available. Only E. coli has been isolated. Antibiotic therapy altered to Rocephin 2 g daily. We'll plan 14 days We'll ask for a PICC line Renal ultrasound shows a left hydronephrosis Neurology has come by for consult and computed tomography scan was performed showing evidence of the large left ureteral stone with hydronephrosis and hydroureter as well as fats draining of the left kidney consistent with the current infectious process. This is the etiology of her persistent E. coli bacteremia. Because of this should be going to bring them later today and have the stent placed in the left renal system for release of the obstruction. Initial resolution of her current symptoms and hopefully improvement of her neurological status We'll plan 21 days of Rocephin at the extended care facility. Appears to be going to extended care for rehab at discharge. Status: Acute (2) Multiple sclerosis exacerbation Status: Acute (3) Urinary tract infection associated with cystostomy catheter Status: Acute
[2017-03-01] MEDS: SODIUM CHLORIDE 0.9% 1,000 ML IV SCH (13:20)
--- NOTE | 2017-03-01 14:37 | P.PN ---
Subjective 66-year-old female [address] Patterson[address] patient with history of obesity, multiple sclerosis with debility, recurrent kidney stone,'s post suprapubic catheter done by Dr. Gonsales last year, history of hypothyroidism and borderline diabetes who presented to the emergency department today 02/24/2017 complaining of fever chills severe generalized weakness and not feeling well with slightly bit worsening discomfort in the left upper quadrant area with significant shortness of breath with deep inspiration. Workup in the emergency room showed chest x-ray consistent with finding of consolidation and atelectasis in the left base, also urine test was slightly bit positive and surprisingly her white blood cell were over 32,000. Patient was diagnosed with sepsis/UTI and pneumonia with start gram-negative coverage and admit patient to the hospital with above problem. 02/25: Patient has had continued fevers of 101.2. Repeat blood cultures have been obtained. Initial blood cultures are showing gram-negative bacteremia. Urine culture is in process. Consult requested with Dr. Hargrove. Patient's mental status is a bit worse from yesterday she has some increased confusion. White count is improved to 17.0 02/26: Patient continues to be quite drowsy, she continues to have significant paralysis of the right upper extremity along with left upper and bilateral lower extremities, patient suffered from severe MS, she has been seen by neurology, there accommodation for MRI of the brain could not be accomplished at our institution however the patient can be transferred to [facility] for her MRI that was ordered by Dr. Wills. Her urine culture showed E. coli that is sensitive to Fortaz. The patient has been off fluoroquinolone. Dr. Hargrove has been following. 02/27: Patient is more awake today more alert that she is having some movement in the right upper extremity, we will continue with current treatment plan and the plan to send the patient back home with home PT OT and she would need a hospital bed as well. 02/28: Pulse was 110, DrClara 99.4. Repeat lactic acid was 0.7. Patient is complaining of feeling sluggish today. Liver function tests are elevated from yesterday. She is currently on Fortaz. Dr. Hargrove is planning for Rocephin. Blood culture from 41 showing no growth after 48 hours. Previous blood cultures and urine culture are positive for pansensitive E. coli. 4/4: CAT scan of the abdomen and pelvis showed a large stone at the left ureterovesical junction with left-sided hydronephrosis and hydroureter with mild fat stranding in the left anterior pararenal space. Left pleural effusion and patchy atelectasis in the lung bases. Consult with Dr. Perez with plan for ureteral stent today. CAT scan of the brain showed mild atrophy and moderate patchy burden of chronic small vessel ischemic changes with no acute intracranial abnormality. PICC line has been ordered. Dr. Hargrove as recommended Rocephin for 21 days at [facility]. Anticipate possible discharge in the next 24-48 hours. Objective - Vital Signs Vital signs: Vital Signs Temp 97.8 F 03/01/17 07:00 Pulse 102 H 03/01/17 07:00 Resp 20 03/01/17 07:00 BP 112/56 03/01/17 07:00 Pulse Ox 93 L 03/01/17 07:00 Intake & Output 02/28/17 03/01/17 03/01/17 18:59 06:59 18:59 Intake Total 700 Output Total 500 2000 Balance -500 -1300 Weight 136.078 kg Intake: Oral 700 Output: Urine 500 2000 Other: Voiding Method Indwelling Catheter Indwelling Catheter # Voids 0 # Bowel Movements 0 0 - Exam General appearance: no average body habitus, cooperative, disheveled, no mild distress, morbidly obese, no acute distress, no obese, no severe distress, no thin - EENT Eyes: no abnormal pupil, no anicteric sclerae, no disc margins sharp, no edentulous, no EOMI, no PERRLA, no fundus normal, no photophobia, no dentition normal, no poor dentition, no ptosis, scleral icterus, normal appearance ENT: hard of hearing, no hearing grossly normal, no NA/AT, normal oropharynx, no other, pharyngeal erythema, no thrush, no tonsillar exudates, no tonsillar swelling Ears: bilateral: normal, bulging - Neck Neck: no lymphadenopathy, normal ROM, no other, no rigidity, no stridor, no thyromegaly Carotids: bilateral: upstroke normal, upstroke delayed Thyroid: bilateral: normal size, enlarged - Respiratory Respiratory: left: rales, bilateral: CTA, diminished, dullness, wheezing - Cardiovascular Rhythm: regular Heart sounds: normal: S1, S2 Abnormal Heart Sounds: systolic murmur, S3 Gallop - Gastrointestinal General gastrointestinal: no absent bowel sounds, decreased bowel sounds, distended, no hepatomegaly, no hyperactive bowel sounds, no normal bowel sounds , no organomegaly, no rigid, scaphoid, soft, no splenomegaly, no tenderness, no umbilical hernia, no ventral hernia - Integumentary Integumentary: no calor, no cellulitis, no cyanotic, decreased turgor, no flushed, no jaundiced, normal, no normal turgor, pale, rash, no ulcer - Neurologic She is alert oriented x1 had significant weakness in lower extremity mild contraction in the upper extremity with generalized weakness strength is only 2 out of 5. Not been able to ambulate and walk Neurologic: CNII-XII intact - Musculoskeletal Severe weakness in the lower extremity the upper extremity is less weakness more in the right than the left. - Psychiatric Psychiatric: appropriate affect - Labs CBC & Chem 7: 03/01/17 09:16 03/01/17 09:16 Labs: Abnormal Lab Results - Last 24 Hours (Table) 03/01/17 03/01/17 Range/Units 09:16 09:16 WBC 13.9 H (3.8-10.6) k/uL Hgb 11.3 L (11.4-16.0) gm/dL BUN 19 H (7-17) mg/dL Calcium 8.1 L (8.4-10.2) mg/dL AST 104 H (14-36) U/L ALT 81 H (9-52) U/L Alkaline Phosphatase 407 H (38-126) U/L Total Protein 5.2 L (6.3-8.2) g/dL Albumin 2.2 L (3.5-5.0) g/dL Microbiology - Last 24 Hours (Table) 02/26/17 08:16 Blood Culture - Preliminary Blood No Growth after 72 hours Assessment and Plan Plan: 1 sepsis with septicemia and E. coli bacteremia due to suprapubic catheter associated urinary tract infection complicated by large left ureteral stone with hydronephrosis and hydroureter. Consult with Dr. Hargrove. Urine culture and blood cultures initial and repeat are in process. Consult with Dr. Gonsales. Ureteral stent scheduled. PICC line scheduled. Patient is to be on 21 days of Rocephin. 2 left lower lobe pneumonia ruled out. 3 UTI/sepsis: Patient has suprapubic catheter will do empiric antibiotic with Levaquin awaiting for the final culture before changing antibiotics. 4 severe leukocytosis: Mostly leukemoid reaction secondary to sepsis and infection try to treat underlying disease. 5 MS: Patient has been seen urology regular basis she had significant weakness in lower extremity continue patient on baclofen along with gabapentin. 6 hypothyroidism: Continue patient on levothyroxine. 7 hyperlipidemia: Patient will continue on simvastatin. 8 restless leg syndrome: Remain on clonazepam. 9 stage II decubitus ulcer to the left buttocks and left gluteal fold, present on admission. Local wound care. Air mattress. 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 11 DVT prophylaxis: Patient be on heparin subcutaneous. 12 GI prophylaxis: Patient will be on Pepcid daily. 13. Sinus tachycardia due to her sepsis. Today IV fluid resuscitation as well as IV antibiotic. CODE STATUS: Full code. Discharge plan: [facility] or [facility] in the next 24-48 hours. Impression and plan of care have been directed as dictated by the signing physician. Mónica Smith nurse practitioner acting as scribe for signing physician. Time with Patient: Greater than 30
[2017-03-01] MEDS ORDERED: IV FLUID CONTINUATION 300 ML IV ONE (15:45)
[2017-03-01] MEDS ORDERED: PHENYLEPHRINE-0.9% NACL SYG 1 MG/10 ML SYRINGE ONE (16:38)
[2017-03-01] MEDS ORDERED: fentaNYL (PF) 50 MCG/ML 2 ML AMP ONE (16:38)
[2017-03-01] MEDS ORDERED: ePHEDrine 50 MG/ML 1 ML AMP ONE (16:38)
[2017-03-01] MEDS ORDERED: PROPOFOL 10 MG/ML 20 ML VIAL IV ONE (16:38)
[2017-03-01] MEDS ORDERED: LIDOCAINE 1% INJ 10MG/ML (20 ML MDV) ONE (16:38)
[2017-03-01] MEDS ORDERED: SUCCINYLCHOLINE CHLORIDE 100 MG/5 ML SYR IV ONE (16:38)
[2017-03-01] MEDS ORDERED: MIDAZOLAM 2 MG/2 ML VIAL ONE (16:38)
[2017-03-01] MEDS ORDERED: LACTATED RINGERS 1,000 ML IV ONE (17:37)
--- NOTE | 2017-03-01 17:55 | P.OP ---
Date of Procedure: 03/01/17 Preoperative Diagnosis: Left hydronephrosis, left distal ureteral calculus Postoperative Diagnosis: Left hydronephrosis, bladder calculus Procedure(s) Performed: Cystoscopy, left retrograde pyelogram, left ureteral stent insertion, removal of bladder calculus Anesthesia: BASILIO Surgeon: Michael Gonsales Estimated Blood Loss (ml): 0 IV fluids (ml): 800 Pathology: other (Bladder calculus, sent for chemical analysis) Condition: stable Disposition: PACU Indications for Procedure: The patient is a 66-year-old white female with a history of multiple sclerosis. She has a suprapubic cystostomy tube, and underwent removal of a bladder calculus in 2016. A KUB x-ray in 2016 showed 2 left renal calculi. She is now admitted with sepsis. Urine and blood cultures have both shown pansensitive E. coli. A computed tomography scan shows left hydroureteronephrosis due to a left distal ureteral calculus. She now comes for stent placement. Operative Findings: Bladder calculus. Persistent left hydroureteronephrosis. Description of Procedure: The patient was taken to the operating room and placed in the dorsolithotomy position, with legs supported in Noel stirrups. The external genitalia was prepped and draped sterilely. The 30 lens was used to introduce the 19-Malian Stortz cystoscopic sheath through the urethra and into the bladder under direct vision. The bladder was examined in its entirety. Both ureteral orifices were of normal anatomic location and configuration. No tumors were seen. The left ureteral orifice was somewhat edematous, and a calculus was seen within the bladder. This suggested that the calculus had passed into the bladder. The calculus was removed and sent for chemical analysis. Using a 10-Malian cone-tip catheter, a left retrograde pyelogram was performed in the standard fashion. The distal ureter appeared narrowed and somewhat tortuous. The ureter proximal to this was dilated. The system was observed, and drainage from the ureter into the bladder was minimal. Therefore, the decision was made to place a ureteral stent. An angled-tipped 0.035 inch Glidewire was passed through the cystoscope. The left ureteral orifice was cannulated, and the Glidewire was slowly advanced up to the renal pelvis. The proximal ureter was tortuous, but was some manipulation the Glidewire did pass through this segment of the ureter and into the renal pelvis. A 28 cm, 6- Malian double-J ureteral stent was placed over the wire. Proper stent positioning was verified fluoroscopically and endoscopically. There was no evidence of a "hydronephrotic duncan". However, based on imaging, and the fact that the Glidewire advanced to the renal pelvis without resistance, there was no concern of the stent being malpositioned. The bladder was emptied and the cystoscope removed. The patient's 20-Malian suprapubic cystostomy tube was changed. The patient tolerated the procedure well was taken to the recovery room in stable condition.
[2017-03-01] MEDS ORDERED: DEXTROSE 50%-WATER 50 ML SYRINGE IVP ONE (18:00)
[2017-03-01 18:04] LABS: Glucose,Whole Blood 68 mg/dL (75-99)
[2017-03-01 18:18] LABS: Glucose,Whole Blood 109 mg/dL (75-99)
--- NOTE | 2017-03-01 20:48 | P.PN ---
Subjective This patient is a 66-year-old female who has been admitted to hospital with acute weakness and sepsis. Patient has a known history of advanced multiple sclerosis. She was admitted as she developed suprapubic catheter sepsis. She was also noted to have evidence of significant weakness and episode of slurred speech initially prior to admission. For this reason she was advised to undergo further stroke workup including MRI of the brain and carotid Doppler ultrasound. She is now being treated for gram-negative sepsis and urinary tract infection. This is felt to be a gram-negative bacteremia. She has recurrent urinary tract infections with cystostomy catheter placement in the past due to neurogenic bladder. She continues to have some right arm weakness. We had recommended MRI of the brain but she is not capable of having it done in hospital as she is not able to fit into the MRI machine. She is being accommodated possibly for outpatient MRI and a another institution. Her carotid Doppler study was completed today and reveals 50-69% stenosis of the right ICA. All test results were reviewed today with the patient. Infectious disease is following the patient closely for her gram-negative sepsis. She is on ceftaz as per the recommendations of Dr. Hargrove. Overall he feels she is showing improvement since treatment of the underlying sepsis. Patient has not been on any specific interferon therapy for her MS for over one year. We have discussed with Dr. Hargrove today that treatment of her acute MS exacerbation with steroids cannot be done until her infection is completely resolved. We will continue close monitoring of the patient. If need be the IV steroids can be administered in the outpatient setting one she is discharged. She will require ongoing PT/ OT and possible subacute rehab placement depending on her response. Patient may consider restarting on Copaxone as primary treatment for MS. She is also interested in seeking out alternative treatments such as monoclonal antibody therapy with Ocrelizumab. This will be further discussed with the patient one she is past the acute stage of her recent flareup. We have recommended MRI of the brain for further assessment of her MS plaque burden. Patient underwent renal ultrasound which does reveal evidence of hydronephrosis on the left side. Patient does seem to be more awake and alert today. She is moving better with her right arm strength. As per the recommendation of Dr. Hargrove we will hold off on any steroid use until her sepsis and infection is completely cleared. Patient unable to have MRI of the brain due to her size and weight. This may be scheduled in the outpatient setting for her at an open MRI Center. We will also try to obtain a computed tomography scan of the brain for further assessment. Computed tomography scan of the brain was completed today. CAT scan reveals no evidence of acute stroke. There is mild atrophy and moderate white matter ischemic changes noted. We reviewed the results of the CAT scan today with the patient. Patient will require PICC line placement and we'll continue with IV antibiotics for 14 days. She is awaiting possible discharge to [facility] for further management. We have recommended not to start on any steroids at this time due to her recent infection and sepsis. We will await further recommendations from neurology as well. Once she is discharged from the [facility] we may reconsider her MS status and possible intervention with alternative treatments for her MS condition at that time. Patient understands and will await discharge planning. She continues to have waxing and waning of her right arm strength. She will require ongoing PT OT evaluation at the subacute rehab unit at the [facility]. We will continue close neurological follow-up with the patient. Her overall prognosis at this time remains guarded. Objective - Vital Signs Vital signs: Vital Signs Temp 98.7 F 03/01/17 15:54 Pulse 99 03/01/17 15:54 Resp 20 03/01/17 07:00 BP 123/61 03/01/17 15:54 Pulse Ox 95 03/01/17 15:54 Intake & Output 02/28/17 03/01/17 03/01/17 18:59 06:59 18:59 Intake Total 700 400 Output Total 500 2000 2800 Balance -500 -1300 -2400 Weight 136.078 kg Intake: IV 400 Oral 700 Output: Urine 500 2000 2800 Estimated Blood Loss 0 Other: Voiding Method Indwelling Catheter Indwelling Catheter Indwelling Catheter # Voids 0 # Bowel Movements 0 0 - Exam Physical examination: PHYSICAL EXAMINATION: Patient is resting comfortably in bed. VITAL SIGNS: Blood pressure is [123/61]. Heart rate is [98]. Respiration is [20] . Temperature is [98.7]. HEENT: Head is atraumatic, neck is supple, there were no carotid bruits. CHEST: Lungs are clear to auscultation and percussion. CARDIAC: S1, S2 normal rate and rhythm. There is no murmur. ABDOMEN: Soft and nontender. Bowel sounds are present. EXTREMITIES: There is no pedal edema. Peripheral pulses are present. Neurological examination: Patient's neurological examination is unchanged from yesterday. She continues to have bilateral arm weakness. Her speech is much improved and seems to be near baseline for today. We are waiting MRI of the brain to be done for further evaluation of her MS. - Labs CBC & Chem 7: 03/01/17 09:16 03/01/17 09:16 Labs: Abnormal Lab Results - Last 24 Hours (Table) 03/01/17 03/01/17 Range/Units 09:16 09:16 WBC 13.9 H (3.8-10.6) k/uL Hgb 11.3 L (11.4-16.0) gm/dL BUN 19 H (7-17) mg/dL Calcium 8.1 L (8.4-10.2) mg/dL AST 104 H (14-36) U/L ALT 81 H (9-52) U/L Alkaline Phosphatase 407 H (38-126) U/L Total Protein 5.2 L (6.3-8.2) g/dL Albumin 2.2 L (3.5-5.0) g/dL Microbiology - Last 24 Hours (Table) 02/26/17 08:16 Blood Culture - Preliminary Blood No Growth after 72 hours Assessment and Plan (1) Multiple sclerosis exacerbation Status: Acute Code(s): G35 - MULTIPLE SCLEROSIS (2) Gram-negative bacteremia Status: Acute Code(s): R78.81 - BACTEREMIA (3) Urinary tract infection associated with cystostomy catheter Status: Acute Code(s): T83.510A - I/I REACT D/T CYSTOSTOMY CATHETER, INITIAL ENCOUNTER; N39.0 - URINARY TRACT INFECTION, SITE NOT SPECIFIED (4) TIA (transient ischemic attack) Status: Acute Code(s): G45.9 - TRANSIENT CEREBRAL ISCHEMIC ATTACK, UNSPECIFIED Plan: This patient is a 66-year-old female with long-standing history of multiple sclerosis. She was admitted with increased sepsis and weakness. She is being treated for a suprapubic infection and urinary tract infection. Infectious disease is following the patient closely. Patient unable to have MRI of the brain due to her size and girth. We are recommending a computed tomography scan of the brain to be done tomorrow. Her speech is improved but she still demonstrated some right arm weakness. She is unable to start on any steroids due to her recent and ongoing sepsis. Patient will have PICC line placed for ongoing IV antibiotic therapy for the next 14 days. She is being considered for transfer to [facility] at [facility]. Patient underwent computed tomography scan of the brain the results of which are noted above. No evidence for acute stroke. Her right-sided arm weakness will require ongoing PT OT evaluation at the [facility]. We will hold off on any steroid use for her MS condition at this time due to her recent severe infection. We will reconsider alternative treatments for her MS when she is discharged from the [facility]. We will continue close monitoring of the patient. Overall prognosis at this time remains very guarded.
[2017-03-01] MEDS: ATORVASTATIN 10 MG TAB PO SCH (21:19)
[2017-03-01 23:30] VITALS: TEMP 97.1
[2017-03-02] MEDS: LEVOTHYROXINE 25 MCG TAB PO SCH (06:23)
[2017-03-02] MEDS: LEVOTHYROXINE 100 MCG TAB PO SCH (06:23)
--- NOTE | 2017-03-02 07:24 | FL ---
EXAMINATION TYPE: FL urography retrograde DATE OF EXAM: 03/01/2017 5:58 PM COMPARISON: NONE HISTORY: 66-year-old female urologic intervention, cystoscopy. TECHNIQUE: Fluoroscopy. FINDINGS: Fluoroscopic guidance was provided during procedure performed by Dr. Israel. A total of 1 minute 23 s econds of fluoroscopic time was utilized during the procedure and 5 spot images was acquired. IMPRESSION: As Above.
[2017-03-02 07:44] VITALS: BP 121/67; PULSE 96; RESP 20
[2017-03-02] MEDS: BACLOFEN 10 MG TAB PO SCH (08:33)
[2017-03-02] MEDS: NORTRIPTYLINE 25 MG CAP PO SCH (08:33)
[2017-03-02] MEDS: GABAPENTIN 300 MG CAP PO SCH (08:34)
[2017-03-02] MEDS: ASPIRIN 81 MG CHEW PO SCH (08:34)
[2017-03-02] MEDS: cefTRIAXone 2,000 MG in SODIUM CHLORIDE 0.9% 100 ML IVPB SCH (08:38)
--- NOTE | 2017-03-02 08:59 | P.PN ---
Subjective The patient is in her first postoperative day from stent placement for an obstructing ureteral stone. Her vital signs are stable she is afebrile. She is awake alert and feeling better. She is starting to move which she was not preoperatively. Her main urologic standpoint nothing further than antibiotics will need to be done until she has cystoscopy stent and stone removal at a later date by . If she goes home she needs to see him in approximately 10 days postoperatively. Objective - Vital Signs Vital signs: Vital Signs Temp 97.1 F L 03/02/17 07:00 Pulse 96 03/02/17 07:00 Resp 20 03/02/17 07:00 BP 121/67 03/02/17 07:00 Pulse Ox 96 03/02/17 07:00 Intake & Output 03/01/17 03/02/17 03/02/17 18:59 06:59 18:59 Intake Total 550 160 Output Total 3450 1300 Balance -2900 -1140 Intake: IV 550 Intake, IV Titration 160 Amount Sodium Chloride 0.9% 1, 160 000 ml @ 20 mls/hr IV . Q24H BISHOP Rx#:[id number] Output: Urine 3450 1300 Estimated Blood Loss 0 Other: Voiding Method Indwelling Catheter Indwelling Catheter # Voids 1 - Labs CBC & Chem 7: 03/01/17 09:16 03/01/17 09:16 Labs: Abnormal Lab Results - Last 24 Hours (Table) 03/01/17 03/01/17 03/01/17 Range/Units 09:16 09:16 18:01 WBC 13.9 H (3.8-10.6) k/uL Hgb 11.3 L (11.4-16.0) gm/dL BUN 19 H (7-17) mg/dL POC Glucose (mg/dL) 68 L (75-99) mg/dL Calcium 8.1 L (8.4-10.2) mg/dL AST 104 H (14-36) U/L ALT 81 H (9-52) U/L Alkaline Phosphatase 407 H (38-126) U/L Total Protein 5.2 L (6.3-8.2) g/dL Albumin 2.2 L (3.5-5.0) g/dL 03/01/17 Range/Units 18:15 WBC (3.8-10.6) k/uL Hgb (11.4-16.0) gm/dL BUN (7-17) mg/dL POC Glucose (mg/dL) 109 H (75-99) mg/dL Calcium (8.4-10.2) mg/dL AST (14-36) U/L ALT (9-52) U/L Alkaline Phosphatase (38-126) U/L Total Protein (6.3-8.2) g/dL Albumin (3.5-5.0) g/dL Microbiology - Last 24 Hours (Table) 02/26/17 08:16 Blood Culture - Preliminary Blood No Growth after 72 hours
[2017-03-02] MEDS ORDERED: LIDOCAINE 2% INJ 20 MG/ML (20 ML MDV) ONE (09:31)
--- NOTE | 2017-03-02 12:40 | P.DS ---
Providers Date of admission: 02/24/17 12:58 Expected date of discharge: 03/02/17 Attending physician: Shakeel Israel Consults: 02/24/17 22:23 Consult Physician Routine Consulting Provider: Luke Wills Consult Reason/Comments: MS, known to pt Do you want consulting provider notified?: Yes, Notify in am 02/25/17 12:58 Consult Physician Routine Consulting Provider: Shakeel Hargrove Consult Reason/Comments: UTI, pneumonia Do you want consulting provider notified?: Yes 02/28/17 12:53 Consult Physician Routine Consulting Provider: Michael Gonsales Consult Reason/Comments: hydronephrosis Do you want consulting provider notified?: Yes Primary care physician: [facility] Course: 66-year-old female [address] Patterson[address] patient with history of obesity, multiple sclerosis with debility, recurrent kidney stone,'s post suprapubic catheter done by Dr. Gonsales last year, history of hypothyroidism and borderline diabetes who presented to the emergency department today 02/24/2017 complaining of fever chills severe generalized weakness and not feeling well with slightly bit worsening discomfort in the left upper quadrant area with significant shortness of breath with deep inspiration. Workup in the emergency room showed chest x-ray consistent with finding of consolidation and atelectasis in the left base, also urine test was slightly bit positive and surprisingly her white blood cell were over 32,000. Patient was diagnosed with sepsis/UTI and pneumonia with start gram-negative coverage and admit patient to the hospital with above problem. 02/25: Patient has had continued fevers of 101.2. Repeat blood cultures have been obtained. Initial blood cultures are showing gram-negative bacteremia. Urine culture is in process. Consult requested with Dr. Hargrove. Patient's mental status is a bit worse from yesterday she has some increased confusion. White count is improved to 17.0 02/26: Patient continues to be quite drowsy, she continues to have significant paralysis of the right upper extremity along with left upper and bilateral lower extremities, patient suffered from severe MS, she has been seen by neurology, there accommodation for MRI of the brain could not be accomplished at our institution however the patient can be transferred to [facility] for her MRI that was ordered by Dr. Wills. Her urine culture showed E. coli that is sensitive to Fortaz. The patient has been off fluoroquinolone. Dr. Hargrove has been following. 02/27: Patient is more awake today more alert that she is having some movement in the right upper extremity, we will continue with current treatment plan and the plan to send the patient back home with home PT OT and she would need a hospital bed as well. 02/28: Pulse was 110, DrClara 99.4. Repeat lactic acid was 0.7. Patient is complaining of feeling sluggish today. Liver function tests are elevated from yesterday. She is currently on Fortaz. Dr. Hargrove is planning for Rocephin. Blood culture from 41 showing no growth after 48 hours. Previous blood cultures and urine culture are positive for pansensitive E. coli. 03/01: CAT scan of the abdomen and pelvis showed a large stone at the left ureterovesical junction with left-sided hydronephrosis and hydroureter with mild fat stranding in the left anterior pararenal space. Left pleural effusion and patchy atelectasis in the lung bases. Consult with Dr. Perez with plan for ureteral stent today. CAT scan of the brain showed mild atrophy and moderate patchy burden of chronic small vessel ischemic changes with no acute intracranial abnormality. PICC line has been ordered. Dr. Hargrove as recommended Rocephin for 21 days at [facility]. Anticipate possible discharge in the next 24-48 hours. 03/02: Patient underwent stent placement for obstructing ureteral stone yesterday. The plan is for her to follow up for cystoscopy stent and stone removal at a later date with Dr. Perez. Patient to follow-up in 10 days with urology. PICC line has been placed this morning and she will continue 0.1 day course of ceftriaxone. Patient will be going to [facility] under Dr. Patterson. Patient is discharged in stable condition. Discharge diagnoses: 1 sepsis with septicemia and E. coli bacteremia due to suprapubic catheter associated urinary tract infection complicated by large left ureteral stone with hydronephrosis and hydroureter. 2 left lower lobe pneumonia ruled out. 3 UTI/sepsis: Patient has suprapubic catheter 4 severe leukocytosis: Mostly leukemoid reaction secondary to sepsis 5 MS 6 hypothyroidism 7 hyperlipidemia 8 restless leg syndrome 9 stage II decubitus ulcer to the left buttocks and left gluteal fold, present on admission 10 functional quadriplegia due to MS. 11 Sinus tachycardia due to her sepsis. T Discharge plan: David Impression and plan of care have been directed as dictated by the signing physician. Mónica Smith nurse practitioner acting as scribe for signing physician. Patient Condition at Discharge: Good Plan - Discharge Summary New Discharge Prescriptions: cefTRIAXone [Rocephin] 2,000 mg IVPB Q24HR #21 vial Discharge Medication List Baclofen 10 mg PO TID 04/27/16 [History] Gabapentin 600 mg PO TID 04/27/16 [History] Levothyroxine Sodium [Synthroid] 25 mcg PO DAILY 04/27/16 [History] Aspirin 81 mg PO DAILY 02/24/17 [History] Cholecalciferol [Vitamin D3] 1,000 unit PO DAILY 02/24/17 [History] Lactulose 10 gm PO DAILY PRN 02/24/17 [History] Levothyroxine Sodium [Synthroid] 200 mcg PO DAILY 02/24/17 [History] Nortriptyline HCl [Pamelor] 25 mg PO BID 02/24/17 [History] Simvastatin [Zocor] 20 mg PO HS 02/24/17 [History] Trospium Chloride [Sanctura] 20 mg PO BID 02/24/17 [History] cefTRIAXone [Rocephin] 2,000 mg IVPB Q24HR #21 vial 03/02/17 [Rx] clonazePAM [KlonoPIN] 1 mg PO HS #0 03/02/17 [Rx] Follow up Appointment(s)/Referral(s): Blanca Patterson MD [Primary Care Provider] - 1 Week Michael Gonsales MD [STAFF PHYSICIAN] - 1 Week Shakeel Hargrove MD [STAFF PHYSICIAN] - 3 Weeks [facility] Visiting Nurse, [NON-STAFF] - Ambulatory/Diagnostic Orders: Basic Metabolic Panel [LAB.AMB] Location: Determined By Patient Complete Blood Count w/diff [LAB.AMB] Location: Determined By Patient Discharge Disposition: HOME WITH HOME HEALTH SERVICES
[2017-03-02] MEDS: SODIUM CHLORIDE 0.9% 1,000 ML IV SCH (13:14)
[2017-03-02] MEDS: CHOLECALCIFEROL 1,000 UNIT TAB PO SCH (13:18)
--- NOTE | 2017-03-04 10:52 | IR ---
PICC LINE PLACEMENT: HISTORY: Infection requiring long-term antibiotic therapy PROCEDURE: Ultrasound and fluoroscopic guidance of PICC line placement. COMPLICATIONS: None ANESTHESIA: 1. 1% Lidocaine locally. FINDINGS/TECHNIQUE: The procedure was explained to the patient. The risks, complications, benefits and alternatives were discussed and any questions were answered. Informed consent was obtained. The patient was placed supine on the fluoroscopic table and prepped and draped in the usual sterile [facility] ion. Utilizing a 21 gauge needle and sonographic and fluoroscopic guidance, access in the vein was achieved and there is placement of a 0.018 guidewire. The vein is patent. A 4-F sheath was placed o rajesh the guidewire. The guidewire and dilator were removed and a 4-F. PICC line was placed through th e sheath with the tip at the level of the SVC. The sheath was removed, the catheter was flushed and sutured into position. The patient was stable throughout the procedure and remained stable upon disc harge from the Department of Radiology. The vein puncture was patent under ultrasound. A wallace scale image was obtained to document patency of the vein punctured. All elements of the maximal barrier technique were utilized. FLUOROSCOPY TIME: 0.1 minute IMPRESSION: Successful PICC line placement under ultrasound and fluoroscopic guidance.
== END 2017-03-02 14:37 | DRG 698 ==
LOC: EC 10:43 → 4MS4W 12:58
PROVIDERS: ADMIT Internal Medicine Geriatric Medicine; ATTEND Internal Medicine Geriatric Medicine
PROC: 0TCB8ZZ Extirpation of Matter from Bladder, Via Natural or Artificial Opening Endoscopic (ICD-10-PCS; 2017-03-01)
PROC: BT1FZZZ Fluoroscopy of Left Kidney, Ureter and Bladder (ICD-10-PCS; 2017-03-01)
PROC: 0T778DZ Dilation of Left Ureter with Intraluminal Device, Via Natural or Artificial Opening Endoscopic (ICD-10-PCS; principal; 2017-03-01 10:30)
PROC: 02HV33Z Insertion of Infusion Device into Superior Vena Cava, Percutaneous Approach (ICD-10-PCS; 2017-03-02)
PROC: B518ZZA Fluoroscopy of Superior Vena Cava, Guidance (ICD-10-PCS; 2017-03-02)
PROC: B548ZZA Ultrasonography of Superior Vena Cava, Guidance (ICD-10-PCS; 2017-03-02)
DX: T83.518A Infection and inflammatory reaction due to other urinary catheter, initial encounter (principal); A41.51 Sepsis due to Escherichia coli [E. coli]; L89.322 Pressure ulcer of left buttock, stage 2; J90 Pleural effusion, not elsewhere classified; R53.2 Functional quadriplegia; G35 Multiple sclerosis; G45.9 Transient cerebral ischemic attack, unspecified; N39.0 Urinary tract infection, site not specified; J98.11 Atelectasis; N13.2 Hydronephrosis with renal and ureteral calculous obstruction; B96.20 Unspecified Escherichia coli [E. coli] as the cause of diseases classified elsewhere; E03.9 Hypothyroidism, unspecified; D72.823 Leukemoid reaction; E78.5 Hyperlipidemia, unspecified; G25.81 Restless legs syndrome; I65.21 Occlusion and stenosis of right carotid artery; N31.9 Neuromuscular dysfunction of bladder, unspecified; N21.0 Calculus in bladder; E66.01 Morbid (severe) obesity due to excess calories; G62.9 Polyneuropathy, unspecified; R73.03 Prediabetes; Z79.82 Long term (current) use of aspirin; Z79.899 Other long term (current) drug therapy; Z87.442 Personal history of urinary calculi; Z99.3 Dependence on wheelchair; Z87.440 Personal history of urinary (tract) infections; Z86.14 Personal history of Methicillin resistant Staphylococcus aureus infection; Z82.49 Family history of ischemic heart disease and other diseases of the circulatory system; Y84.6 Urinary catheterization as the cause of abnormal reaction of the patient, or of later complication, without mention of misadventure at the time of the procedure
CPT/HCPCS: 36415; 36569; 70450; 71010; 74176; 74420; 76770; 76937; 77001; 80048; 80053; 80061; 81001; 82365; 83605; 83735; 84100; 84484; 85025; 85027; 85610; 85730; 87040; 87077; 87086; 87186; 87502; 93005; 93880; 96361; 96365; 96374; 96375; 99285

== ENCOUNTER 2017-03-31 09:34 | Day surgery (SDC) | payer MEDICARE, OTHER ==
[2017-03-30 09:06] VITALS: BMI 41.9
[~2017-03-31 09:34] MED LIST: DEXAMETHASONE SOD PHOSPHATE 10 MG/ML 1 ML VIAL IV ONE; GENTAMICIN 120 MG in SODIUM CHLORIDE 0.9% 100 ML IVPB ONE; HYDROmorphone 1 MG/ML 1 ML SYRINGE IVP PRN; LACTATED RINGERS 1,000 ML IV SCH; LIDOCAINE 1% 20 ML VIAL (10MG/ML) FOR IV START INTRADERMA PRN; MIDAZOLAM 2 MG/2 ML VIAL IV PRN; ONDANSETRON 4 MG/2 ML VIAL IVP ONE
--- NOTE | 2017-03-31 09:36 | XR ---
EXAMINATION TYPE: XR KUB DATE OF EXAM: 03/31/2017 9:27 AM COMPARISON: NONE HISTORY: Pain TECHNIQUE: Single supine KUB image of the abdomen is obtained FINDINGS: Double pigtail left ureteral stent noted with proximal stent component within the left renal pelvis a nd distal component within the urinary bladder. Adjacent to the proximal stent component of there is an 8.6 mm calculus. Single calculus within the left hemipelvis may reflect phlebolith. No convincing evidence for pneumoperitoneum. Distention of small and large bowel with a large amount of intracolonic debris. No unusual calcifications. The lung bases are clear. The osseous structures are intact. IMPRESSION: 1. Left ureteral stent with proximal calculus
[2017-03-31 10:09] LABS: Glucose,Whole Blood 84 mg/dL (75-99)
[2017-03-31] MEDS ORDERED: PHENYLEPHRINE-0.9% NACL SYG 1 MG/10 ML SYRINGE ONE (10:42)
[2017-03-31] MEDS ORDERED: PROPOFOL 10 MG/ML 20 ML VIAL IV ONE (10:42)
[2017-03-31] MEDS ORDERED: LIDOCAINE 1% INJ 10MG/ML (20 ML MDV) ONE (10:42)
[2017-03-31] MEDS ORDERED: MIDAZOLAM 2 MG/2 ML VIAL ONE (10:42)
[2017-03-31] MEDS ORDERED: ePHEDrine 50 MG/ML 1 ML AMP ONE (10:42)
[2017-03-31] MEDS ORDERED: fentaNYL (PF) 50 MCG/ML 2 ML AMP ONE (10:42)
[2017-03-31] MEDS: AMPICILLIN 2,000 MG in SODIUM CHLORIDE 0.9% 100 ML IVPB ONE ×2 (11:16→11:20)
--- NOTE | 2017-03-31 12:56 | FL ---
EXAMINATION TYPE: FL cystogram DATE OF EXAM: 03/31/2017 12:51 PM COMPARISON: NONE HISTORY: LT KIDNEY STONE TECHNIQUE: Fluoroscopy. 1 film scanned, 23 sec fl IMPRESSION: As Above.
--- NOTE | 2017-03-31 13:10 | P.OP ---
Date of Procedure: 03/31/17 Preoperative Diagnosis: Left Renal Calculus Postoperative Diagnosis: Same Procedure(s) Performed: Cystoscopy, left ureteral stent removal, left ureteroscopy with Holmium laser lithotripsy and stone basketing, suprapubic cystostomy tube change. Anesthesia: GETA Surgeon: Michael Gonsales Estimated Blood Loss (ml): 5 IV fluids (ml): 700 Condition: stable Disposition: PACU Indications for Procedure: She has a neurogenic bladder secondary to multiple sclerosis. She underwent insertion of a suprapubic cystostomy tube in August 2008, which has worked very well for her. She has taken Detrol LA in the past, but now takes trospium. She is no longer taking Macrodantin every other day, but takes Keflex periodically for UTIs. She underwent cystolithotripsy and 2016, and since then she has gone back to monthly suprapubic cystostomy tube changes. She was recently hospitalized with Escherichia coli sepsis, complicated by a left distal ureteral calculus. She underwent placement of a left ureteral stent, though the calculus had passed into the bladder, and she will now be scheduled to undergo removal of her 1 cm left renal calculus at the time of stent removal. Operative Findings: 1 cm left lower pole renal calculus, fragmented and removed in its entirety. Description of Procedure: The patient was taken to the operating room and placed in the dorsolithotomy position, with legs supported in Noel stirrups. The external genitalia was prepped and draped sterilely. The suprapubic cystostomy tube was clamped. The 30 lens was used to introduce the 22-Cymro Stortz cystoscopic sheath through the urethra and into the bladder under direct vision. The bladder was examined in its entirety. The distal end of the left ureteral stent was grasped with grasping forceps, and was removed along with the cystoscope. A 0.038 inch Glidewire was passed through the stent and up to the left renal pelvis. An 11/ 13-Cymro ureteral access catheter was passed over the wire, up to the proximal ureter. The Olympus flexible ureteroscope was passed through the ureteral access catheter sheath and advanced up to the left renal pelvis under direct vision. The calculus was identified within a lower pole calyx. It was difficult to fragment the calculus because of the deflection required, and the fact that the infundibulum was short. Therefore, a 1.9-Cymro nitinol basket was used to grasp the calculus, which was relocated to the left renal pelvis. The 200 micron Holmium laser probe was passed through the ureteroscope, and lithotripsy was performed. The calculus fragmented well. Lithotripsy was continued until all calculus fragments were very small. In fact, a testing technique was utilized and the majority of the fragments were sent-like particles. The periphery of the stone was very soft, while the core was somewhat more dense. The nitinol basket was then used to basket and removed the calculus fragments, which were saved and sent for chemical analysis. The ureteroscope was then withdrawn along with the ureteral access catheter sheath. The suprapubic cystostomy tube was changed (20-Cymro Morgan catheter). The patient tolerated the procedure well and was taken to the recovery room in stable condition.
[2017-03-31 13:11] VITALS: RESP 16; TEMP 98.2
[2017-03-31 15:05] VITALS: BP 143/83; PULSE 110
== END 2017-03-31 15:08 | disposition home health service (06) ==
LOC: OR 09:34
PROVIDERS: ATTEND Urology
DX: N20.0 Calculus of kidney (principal); N31.8 Other neuromuscular dysfunction of bladder; G35 Multiple sclerosis; Z87.442 Personal history of urinary calculi; E03.9 Hypothyroidism, unspecified; Z86.718 Personal history of other venous thrombosis and embolism; Z79.2 Long term (current) use of antibiotics; Z79.82 Long term (current) use of aspirin; Z79.891 Long term (current) use of opiate analgesic; Z79.899 Other long term (current) drug therapy; Z88.2 Allergy status to sulfonamides
CPT/HCPCS: 82365; 74000; 74430; 51705; 52352; 52353; C1769; J2250; J2405; J2001; J3010; J1580; J0290; J2370; J2704

== ENCOUNTER → 2017-05-30 | Outpatient (CLI) | payer MEDICARE, OTHER ==
--- NOTE | 2017-05-30 15:21 | MR ---
EXAMINATION TYPE: MR brain/cspine wo DATE OF EXAM: 05/30/2017 COMPARISON: 02/18/2014 HISTORY: 67-year-old female with MS, bilateral extremity weakness. TECHNIQUE: Multiplanar, multisequence images of the brain and brainstem is performed without IV contrast. Demye linating disease protocol with additional Sagittal Flair sequence performed. Subsequently, multiplana r, multisequence images of the cervical spine are obtained. FINDINGS: BRAIN: T2 Lesions Present : Yes Approximate Number of Lesions: 9 within the right cerebral hemisphere and 11 within the left cerebral hemisphere. Locations Identified : Periventricular, Juxtacortical, and deep white matter. No infratentorial lesio ns are seen. Size of Reference Lesion(s): 1. 10 x 6 mm in the left mishra radiata axial image 20 is unchanged. 2. 8 x 7 mm in the right centrum semiovale slightly larger as compared to 7 x 5 mm, previously, axia l image 22. 3. 7 mm in the left frontal subcortical white matter versus 6 mm, previously, axial image 22. Enhancing Lesion(s) Present: N/A T1 Hypointense Lesion(s) Present: Yes Change from Prior: A couple lesions such as reference lesions 2 and 3 and minimally enlarged. One or 2 lesions in the right periatrial white matter may be new. Diffusion weighted images demonstrate no evidence of a recent infarct or other diffusion abnormality. Mild scattered T2 shine through is demonstrated within the subcortical and deep white matter. There is no worrisome extra-axial fluid collection. The ventricular system and cisternal spaces are normal in size and appearance. There is mild to moderate bifrontal cerebral atrophy. Midline structures demonstrate normal morphology. The craniocervical junction appears within normal limits. The visualized sinuses are clear and the globes are intact. CERVICAL SPINE: No craniocervical junction abnormality, predental space widening, or prevertebral soft tissue swellin g. The trace grade 1 anterolisthesis at C7-T1 secondary to facet arthropathy. No suspicious bone marrow replacement. There is degenerative disc disease with a variable disc desiccation. Moderate disc height loss at C6- C7 is worsened from 2013. There are disc osteophyte complexes with facet and uncovertebral joint arth ropathy and ligamentum flavum thickening. Ligamentum flavum thickening is greatest at C5-C6. Disc ost eophyte complexes are largest towards the left at C6-C7. Evaluation of the cervical spinal cord shows similar patchy T2 increased signal confirmed on the sagi ttal PD sequence on present C2, C4, C5-C6. This is overall similar to 2014. Changes mildly narrow the spinal canal from C4 through C7 levels. At C7-T1, there is trace grade 1 anterolisthesis with facet arthropathy causing mild left neuroforami nal stenosis. In particular, at C6/C7, a left paracentral disc osteophyte complex abuts and indents the ventral cor d, slightly increased from prior. Moderate left and [id number] right neuroforaminal stenosis. At C5-C6, a right paracentral protrusion abuts and slightly indents the ventral cord. Mild to moderat e right and mild left neuroforaminal stenosis. At C4-C5, there is broad-based disc osteophyte complex with contiguous uncovertebral joint arthropath y and bilateral facet arthropathy. Changes result in moderate to severe right and moderate left neuro foraminal stenosis. At C3-C4, facet and uncovertebral joint arthropathy greater on the right resulting in moderate to sev ere right and mild left neuroforaminal stenosis. At C2-C3, there is mild bilateral facet arthropathy without significant canal or foraminal stenosis. COMBINED IMPRESSION: BRAIN: 1. Mild scattered burden of T2 bright white matter change likely on the basis of the patient's MS. A couple lesions are slightly larger and one or 2 periatrial lesions appear to be new as compared to 20 14 suggesting slight interval progression. Otherwise, most of the changes are stable. 2. Similar mild to moderate bifrontal cerebral atrophy. CERVICAL SPINE: 1. Redemonstrated MS plaques throughout the cervical spinal cord. 2. Moderate multilevel degenerative disc disease shows progression particularly at C6-C7. There is ov erall similar to minimally worsened mild spinal canal narrowing particularly from C4 through C7 level s. Disc osteophyte complex abuts and minimally flattens the ventral cord at both C5-C6 and C6-C7. 3. Redemonstrated bilateral facet and uncovertebral joint arthropathy causing variable neuroforaminal stenoses as outlined above.
== END | disposition home or self-care (01) ==
LOC: RADMRIMAIN 11:55
PROVIDERS: ATTEND Psychiatry & Neurology Neurology
DX: M48.02 Spinal stenosis, cervical region (principal); M99.71 Connective tissue and disc stenosis of intervertebral foramina of cervical region; M50.323 Other cervical disc degeneration at C6-C7 level; M25.78 Osteophyte, vertebrae; G31.89 Other specified degenerative diseases of nervous system; G93.89 Other specified disorders of brain; R90.82 White matter disease, unspecified
CPT/HCPCS: 70551; 72141

== ENCOUNTER → 2017-06-22 | Outpatient (CLI) | payer MEDICARE, OTHER ==
--- NOTE | 2017-06-22 15:42 | XR ---
EXAMINATION TYPE: XR chest 2V DATE OF EXAM: 06/22/2017 COMPARISON: 02/24/2017 HISTORY: Shortness of breath TECHNIQUE: Frontal and lateral views of the chest are obtained. FINDINGS: Scattered senescent parenchymal changes noted. Hyperinflation compatible with COPD. No evidence for infiltrate. No evidence for atelectasis. There is evidence of cardiomegaly. Pulmonary venous congestion without overt failure. Mild bronchial cuffing may reflect bronchitis. Mediastinal structures are stable and grossly unremarkable. No evidence for hilar prominence. Degenerative changes dorsal spine. IMPRESSION: 1. Mild bronchial cuffing may reflect bronchitis.
[2017-06-22 15:47] LABS: Hepatitis B Surface Ag Index 0.05
[2017-06-22 16:05] LABS: Hepatitis B Surface Antibody Negative (Negative)
== END | disposition home or self-care (01) ==
LOC: LABWHC1 14:44
PROVIDERS: ATTEND Psychiatry & Neurology Neurology
DX: J40 Bronchitis, not specified as acute or chronic (principal); Z11.59 Encounter for screening for other viral diseases; Z76.89 Persons encountering health services in other specified circumstances
CPT/HCPCS: 36415; 71020; 86704; 86706; 87340

== ENCOUNTER 2018-08-18 22:21 | Emergency (ER) | payer MEDICARE, OTHER ==
[2018-08-18 22:31] VITALS: RESP 18; TEMP 98
--- NOTE | 2018-08-18 22:49 | ED ---
General Adult HPI - General Chief complaint: Extremity Injury, Lower Stated complaint: Ankle injury Time Seen by Provider: 08/18/18 22:23 Source: patient, EMS, RN notes reviewed Mode of arrival: EMS Limitations: no limitations - History of Present Illness Initial comments: 68-year-old female presents to the emergency department for a chief complaint of left foot and ankle injury occurring about 2 hours ago. Patient is a paraplegic living at an extended care facility. Patient was lifted using the Laurita lift when her foot got stuck in the chair. Patient states at the time she felt pain. She states she has had surgery on the ankle in the past. Patient would like to make sure it is not broken. She did not sustain any other injuries. She denies hitting her head. Patient has no other complaints at this time including shortness of breath, chest pain, abdominal pain, nausea or vomiting, headache, or visual changes. - Related Data Home Medications Medication Instructions Recorded Confirmed Gabapentin 600 mg PO QID 04/27/16 08/18/18 Levothyroxine Sodium [Synthroid] 200 mcg PO DAILY 02/24/17 08/18/18 Fesoterodine Fumarate [Toviaz] 4 mg PO DAILY 08/18/18 08/18/18 Fluconazole [Diflucan] 100 mg PO DAILY 08/18/18 08/18/18 Ibuprofen [Motrin] 800 mg PO TID-W/MEALS 08/18/18 08/18/18 Lactulose 20 gm PO BID 08/18/18 08/18/18 Levothyroxine Sodium 25 mcg PO DAILY 08/18/18 08/18/18 Melatonin 5 mg PO HS 08/18/18 08/18/18 Metoprolol Tartrate 25 mg PO BID-W/MEALS 08/18/18 08/18/18 Potassium Citrate [Potassium 10 meq PO TID 08/18/18 08/18/18 Citrate ER] Simvastatin [Zocor] 40 mg PO HS 08/18/18 08/18/18 Allergies Allergy/AdvReac Type Severity Reaction Status Date / Time No Known Allergies Allergy Verified 08/18/18 22:51 Review of Systems ROS Statement: Those systems with pertinent positive or pertinent negative responses have been documented in the HPI. ROS Other: All systems not noted in ROS Statement are negative. Past Medical History Past Medical History: Diabetes Mellitus, Deep Vein Thrombosis (DVT), Hyperlipidemia, Hypertension, Musculoskeletal Disorder, Neurologic Disorder, Thyroid Disorder Additional Past Medical History / Comment(s): Multiple sclerosis (diagnosed late ), L sided weakness with L hand contracture and unable to move bilateral lower extremities (laurita lift to wheelchair), 2008 suprapubic catheter , currently being tx for bilateral buttock decubs with meihoney and dressings, UTIs, "border line DM", hypothyroid, bladder stones, bilateral cataracts. History of Any Multi-Drug Resistant Organisms: MRSA Date of last positivie culture/infection: 2011 MDRO Source:: Urine Past Surgical History: Bladder Surgery, Orthopedic Surgery, Tubal Ligation Additional Past Surgical History / Comment(s): EYE SURG AGE 6 for strabismus, ureteral surgery, cysto/lithotripsey, suprapubic catheter insertion, bilateral carpal releases, L leg eric d/t fx, L thumb sx, benign lesion removed from nose. Past Anesthesia/Blood Transfusion Reactions: No Reported Reaction Past Psychological History: No Psychological Hx Reported Smoking Status: Never smoker Past Alcohol Use History: None Reported Past Drug Use History: None Reported - Past Family History Mother Family Medical History: No Reported History Father Family Medical History: Coronary Artery Disease (CAD), Diabetes Mellitus General Exam Limitations: no limitations General appearance: alert, in no apparent distress Head exam: Present: atraumatic, normocephalic, normal inspection Eye exam: Present: normal appearance. Absent: scleral icterus, conjunctival injection ENT exam: Present: normal exam, mucous membranes moist Neck exam: Present: normal inspection, full ROM. Absent: tenderness, meningismus, lymphadenopathy Respiratory exam: Present: normal lung sounds bilaterally. Absent: respiratory distress, wheezes, rales, rhonchi, stridor Cardiovascular Exam: Present: regular rate, normal rhythm, normal heart sounds. Absent: systolic murmur, diastolic murmur, rubs, gallop, clicks Extremities exam: Present: normal capillary refill (Capillary refill less than 2 seconds in PD pulse 2+ in the left lower extremity), other (Sensation intact in left lower extremity). Absent: full ROM (Patient is a paraplegic and is unable to move lower extremities), tenderness (No tenderness to the left medial or lateral malleolus. No tenderness to the left foot), joint swelling (No edema , ecchymosis, or signs of trauma noted of the left foot or ankle.) Neurological exam: Present: alert, oriented X3, CN II-XII intact Psychiatric exam: Present: normal affect, normal mood Course Vital Signs 08/18/18 22:22 Temperature 98.0 F Pulse Rate 110 H Respiratory 18 Rate Blood Pressure 130/65 O2 Sat by Pulse 98 Oximetry Medical Decision Making - Medical Decision Making 68-year-old female staying at an extended care facility presents to the emergency department for a chief complaint of left ankle and foot pain. Patient was lifted with a Laurita lift and her foot became stuck in the chair. Patient is unable to move lower extremities bilaterally as a result of chronic paraplegia. Sensation intact and neurovascular intact in left lower extremity. No tenderness to the medial or lateral malleolus or the remainder of the left foot. X-ray of the left ankle and foot did not show any acute fractures. At this time patient's left foot was wrapped with an Bravo wrap loosely. She will follow up with primary care in 1-2 days. She will return to the emergency Department if she has any worsening symptoms. This was discussed with Dr. Peoples Disposition Clinical Impression: Ankle pain, left Disposition: HOME SELF-CARE Condition: Good Instructions: Ankle Sprain (ED), R.I.C.E. Treatment (ED) Additional Instructions: Please take Tylenol for pain. Please rest ice and elevate the left ankle. Follow-up with primary care in 1-2 days. Return to the emergency department if you have any worsening symptoms. Is patient prescribed a controlled substance at d/c from ED?: No Referrals: Blanca Patterson MD [Primary Care Provider] - 1-2 days Time of Disposition: 00:17
--- NOTE | 2018-08-18 23:13 | XR ---
EXAMINATION TYPE: XR ankle complete LT DATE OF EXAM: 08/18/2018 COMPARISON: NONE HISTORY: Ankle pain TECHNIQUE: 3 views FINDINGS: There are plantar and Achilles calcaneal spurs. Ankle mortise is anatomic. There is soft ti ssue swelling around the ankle joint. IMPRESSION: Calcaneal spurring. No fracture seen. Osteopenia.
--- NOTE | 2018-08-18 23:15 | XR ---
EXAMINATION TYPE: XR foot complete LT DATE OF EXAM: 08/18/2018 COMPARISON: NONE HISTORY: Ankle pain foot pain TECHNIQUE: 3 views FINDINGS: There is osteopenia. Metatarsals appear intact. I see no fracture nor dislocation. There ar e plantar and Achilles calcaneal spurs. There is spurring at the talonavicular joint. IMPRESSION: Calcaneal spurring. No fracture.
[2018-08-19] MEDS ORDERED: ACETAMINOPHEN TAB 325 MG TAB PO STA (00:23)
[2018-08-19 00:39] VITALS: BP 143/62; PULSE 98
== END 2018-08-19 01:26 | disposition home or self-care (01) ==
LOC: EC 22:21
DX: M25.572 Pain in left ankle and joints of left foot (principal); G82.20 Paraplegia, unspecified; M79.672 Pain in left foot; E78.5 Hyperlipidemia, unspecified; I10 Essential (primary) hypertension; E03.9 Hypothyroidism, unspecified; Z79.1 Long term (current) use of non-steroidal anti-inflammatories (NSAID); Z79.899 Other long term (current) drug therapy; Z86.14 Personal history of Methicillin resistant Staphylococcus aureus infection; W24.0XXA Contact with lifting devices, not elsewhere classified, initial encounter; Y93.89 Activity, other specified; Y92.009 Unspecified place in unspecified non-institutional (private) residence as the place of occurrence of the external cause
CPT/HCPCS: 99283

== ENCOUNTER 2019-01-12 10:51 | Emergency (ER) | payer MEDICARE, OTHER ==
[2019-01-12 11:00] VITALS: BP 151/77; PULSE 75; RESP 18; TEMP 97.8
--- NOTE | 2019-01-12 11:45 | ED ---
General Adult HPI - General Chief complaint: Recheck/Abnormal Lab/Rx Stated complaint: catheter problem Time Seen by Provider: 01/12/19 11:00 Source: patient, RN notes reviewed Mode of arrival: wheelchair Limitations: no limitations - History of Present Illness Initial comments: This a 68-year-old female presents emergency Department with a history of MS. Patient has had a suprapubic catheter placed for quite a while. Patient states in the last few days she has had urine coming out the catheter as well as the urethra. Patient states the catheter was recently replaced a week ago. Patient states she normally does not have any urine out a urethra and is irritating some of her bedsores so she is concerned about this. Patient denies any abdominal pain patient denies any fever chills. Patient states she called her urologist and urologist told to come to the emergency department. Patient does not want a catheter placed because she believes it is functioning normally. Patient states she also stopped Keflex a couple of days ago. - Related Data Home Medications Medication Instructions Recorded Confirmed Gabapentin 600 mg PO QID 04/27/16 01/12/19 Levothyroxine Sodium [Synthroid] 200 mcg PO DAILY 02/24/17 01/12/19 Fesoterodine Fumarate [Toviaz] 4 mg PO DAILY 08/18/18 01/12/19 Fluconazole [Diflucan] 100 mg PO DAILY 08/18/18 01/12/19 Lactulose 20 gm PO BID PRN 08/18/18 01/12/19 Levothyroxine Sodium 25 mcg PO DAILY 08/18/18 01/12/19 Melatonin 10 mg PO HS 08/18/18 01/12/19 Aquoral Mucous Membrane 1 spray SL DAILY PRN 01/12/19 01/12/19 Aspirin EC [Ecotrin] 325 mg PO DAILY 01/12/19 01/12/19 Baclofen [Lioresal] 10 mg PO TID 01/12/19 01/12/19 Cholecalciferol [Vitamin D3] 1,000 unit PO DAILY 01/12/19 01/12/19 Nystatin 100,000 Unit/ml Susp 30 ml PO BID 01/12/19 01/12/19 [Mycostatin Oral Susp] Ocrevus Iv 300 mg IV Q180D 01/12/19 01/12/19 Potassium Citrate [Urocit-K] 15 meq PO TID 01/12/19 01/12/19 Renacidin Irrigation 50 ml IV TUFR 01/12/19 01/12/19 Simvastatin [Zocor] 20 mg PO HS 01/12/19 01/12/19 Trospium Chloride 20 mg PO BID 01/12/19 01/12/19 traMADol HCL [Ultram] 50 mg PO TID PRN 01/12/19 01/12/19 Previous Rx's Medication Instructions Recorded Nitrofurantoin Monohyd/M-Cryst 100 mg PO Q12HR #14 cap 01/12/19 [Macrobid] Allergies Allergy/AdvReac Type Severity Reaction Status Date / Time Sulfa (Sulfonamide Allergy Unknown Verified 01/12/19 11:31 Antibiotics) Review of Systems ROS Statement: Those systems with pertinent positive or pertinent negative responses have been documented in the HPI. ROS Other: All systems not noted in ROS Statement are negative. Past Medical History Past Medical History: Diabetes Mellitus, Deep Vein Thrombosis (DVT), Hyperlipidemia, Hypertension, Musculoskeletal Disorder, Neurologic Disorder, Thyroid Disorder Additional Past Medical History / Comment(s): Multiple sclerosis (diagnosed late ), L sided weakness with L hand contracture and unable to move bilateral lower extremities (tita lift to wheelchair), 2007 suprapubic catheter , currently being tx for bilateral buttock decubs with meihoney and dressings, UTIs, "border line DM", hypothyroid, bladder stones, bilateral cataracts. History of Any Multi-Drug Resistant Organisms: MRSA Date of last positivie culture/infection: 2011 MDRO Source:: Urine Past Surgical History: Bladder Surgery, Orthopedic Surgery, Tubal Ligation Additional Past Surgical History / Comment(s): EYE SURG AGE 6 for strabismus, ureteral surgery, cysto/lithotripsey, suprapubic catheter insertion, bilateral carpal releases, L leg eric d/t fx, L thumb sx, benign lesion removed from nose. Past Anesthesia/Blood Transfusion Reactions: No Reported Reaction Past Psychological History: No Psychological Hx Reported Smoking Status: Never smoker Past Alcohol Use History: None Reported Past Drug Use History: None Reported - Past Family History Mother Family Medical History: No Reported History Father Family Medical History: Coronary Artery Disease (CAD), Diabetes Mellitus General Exam - General Exam Comments Initial Comments: GENERAL Patient is well-developed and well-nourished. Patient is in mild distress. EYES Patient's pupils are equal and round. Extraocular motion is intact SKIN Unremarkable NEURO The patient is alert and oriented 3 PYSCH Patient has normal interpersonal interactions. ABDOMINAL Abdomen is nontender. Urethral catheter has no irritation around there is no urine leakage around and I can visually see urine flowing throughout. Limitations: no limitations Course Vital Signs 01/12/19 10:57 Temperature 97.8 F Pulse Rate 75 Respiratory 18 Rate Blood Pressure 151/77 O2 Sat by Pulse 99 Oximetry Medical Decision Making - Medical Decision Making Patient received a shot of [facility] emergency department for a urinary tract infection. Patient will be sent home on Macrobid. - Lab Data Lab Results 01/12/19 Range/Units 12:05 Urine Color Yellow Urine Appearance Turbid H (Clear) Urine pH 6.5 (5.0-8.0) Ur Specific [place] 1.020 (1.001-1.035) Urine Protein 1+ H (Negative) Urine Glucose (UA) Negative (Negative) Urine Ketones 2+ H (Negative) Urine Blood Moderate H (Negative) Urine Nitrite Positive H (Negative) Urine Bilirubin Negative (Negative) Urine Urobilinogen <2.0 (<2.0) mg/dL Ur Leukocyte Esterase Large H (Negative) Urine RBC 61 H (0-5) /hpf Urine WBC >182 H (0-5) /hpf Urine WBC Clumps Many H (None) /hpf Urine Bacteria Few H (None) /hpf Urine Mucus Many H (None) /hpf Disposition Clinical Impression: Urinary tract infection Disposition: HOME SELF-CARE Instructions (If sedation given, give patient instructions): Urinary Tract Infection in Women (ED) Prescriptions: Nitrofurantoin Monohyd/M-Cryst [Macrobid] 100 mg PO Q12HR #14 cap Is patient prescribed a controlled substance at d/c from ED?: No Referrals: Blanca Patterson MD [Primary Care Provider] - 1-2 days
[2019-01-12 12:34] LABS: Appearance,Urine Turbid (Clear); Bacteria,Urine Few /hpf; Bilirubin,Urine Negative (Negative); Blood,Urine Moderate (Negative); Color,Urine Yellow; Glucose,Urine (UA) Negative (Negative); Ketones,Urine 2+ (Negative); Leukocyte Esterase,Urine Large (Negative); Mucus,Urine Many /hpf; Nitrite,Urine Positive (Negative); PH, Urine 6.5 (5.0-8.0); Protein,Urine 1+ (Negative); RBC,Urine 61 /hpf (0-5); Urobilinogen,Urine <2.0 mg/dL (<2.0); WBC,Urine >182 /hpf (0-5)
[2019-01-12] MEDS ORDERED: cefTRIAXone 1,000 MG VIAL (IM USE) IM STA (13:26)
== END 2019-01-12 15:10 | disposition home or self-care (01) ==
LOC: EC 10:51
DX: N39.0 Urinary tract infection, site not specified (principal); E78.5 Hyperlipidemia, unspecified; I10 Essential (primary) hypertension; E03.9 Hypothyroidism, unspecified; G35 Multiple sclerosis; L89.329 Pressure ulcer of left buttock, unspecified stage; L89.319 Pressure ulcer of right buttock, unspecified stage; Z88.2 Allergy status to sulfonamides; Z79.82 Long term (current) use of aspirin; Z79.890 Hormone replacement therapy; Z79.899 Other long term (current) drug therapy; Z86.14 Personal history of Methicillin resistant Staphylococcus aureus infection; Z87.442 Personal history of urinary calculi; Z98.51 Tubal ligation status; Z98.890 Other specified postprocedural states
CPT/HCPCS: 81001; 99283; 51701; 96372; J0696

== ENCOUNTER → 2020-12-26 | Outpatient (CLI) | payer MEDICARE, OTHER ==
--- NOTE | 2020-12-26 23:28 | MR ---
EXAMINATION TYPE: MR cervical spine wo/w con DATE OF EXAM: 12/26/2020 COMPARISON: 05/30/2017 HISTORY: MS follow up. Pain in spine up to head. CONTRAST: Standard multiplanar, multisequence MRI departmental protocol utilizing 12.5 mL intravenous Gadavist gadolinium contrast. Multiplanar multiecho imaging of the cervical spine was performed without and with IV contrast. Cervical vertebra have normal alignment. There is mild uniform narrowing of cervical disc spaces. The re is no compression fracture. There is minimal posterior disc bulging from C3 to T1 level without si gnificant impingement on the spinal canal. There is no significant spinal stenosis. On the T2 images there are multiple areas of abnormal increased signal in the cervical spinal cord. T here is central increased signal in the cord at C2 to and C1 level. There is abnormal increased signa l in the cord at C4 level centrally and towards the left side. There are small foci of 3 mm increased signal in the cord at C5 and C6 level. I see no focal bone destruction. The contrast images show no pathologic enhancement. The brainstem appears intact. Visualized cerebell um is intact. The contrast images show no pathologic enhancement in the cervical spinal cord. IMPRESSION: Multiple areas of increased signal in the cervical spinal cord consistent with demyelinating disease. Lesion that overall are not significantly different than old exam. No definite sign of a new lesion.
== END | disposition home or self-care (01) ==
LOC: RADMRIMAIN 14:53
PROVIDERS: ATTEND Psychiatry & Neurology Neurology
DX: G93.89 Other specified disorders of brain (principal); R90.89 Other abnormal findings on diagnostic imaging of central nervous system
CPT/HCPCS: 72156; A9585

== ENCOUNTER → 2020-12-26 | Outpatient (CLI) | payer MEDICARE, OTHER ==
--- NOTE | 2020-12-27 00:39 | MR ---
EXAMINATION TYPE: MR brain wo/w con DATE OF EXAM: 12/26/2020 COMPARISON: 05/30/2017 HISTORY: MS follow up. Pressure on left side of head. CONTRAST: Standard multiplanar, multisequence MRI departmental protocol utilizing 12.5 mL intravenous Gadavist gadolinium contrast. There is cerebral cortical atrophy. There is no mass effect nor midline shift. Diffusion images show no evidence of an acute infarct. There are scattered foci of abnormal increased signal in the white m atter of both cerebral hemispheres. Total number is less than 20. The largest measures 1 cm. Most of these lesions measure less than 5 mm. Some of these lesions are at the corpus callosum and typical of demyelinating disease. The brainstem is intact. Cerebellum also shows small foci of white matter inc reased signal. The sella turcica appears normal. Optic nerves appear normal. The internal auditory canals appear normal. There are some apparent dilated veins in the scalp in the left posterior parietal region. Contrast images show no pathologic enhancement. There is normal enha ncement of the venous sinuses. IMPRESSION: Multiple white matter lesions also present on old exam and not significantly different. I do not see definite evidence for progression of disease in this patient with a history of demyelinating disease. There are some dilated scalp veins on the left side that are increased compared to old exam could rel ate to some venous obstruction. There is no evidence of sinus vein thrombosis.
== END | disposition home or self-care (01) ==
LOC: RADMRIMAIN 15:12
PROVIDERS: ATTEND Family Medicine
DX: G93.89 Other specified disorders of brain (principal); G35 Multiple sclerosis
CPT/HCPCS: 70553

== ENCOUNTER 2021-10-29 07:57 | Day surgery (SDC) | payer MEDICARE, OTHER ==
--- NOTE | 2021-10-25 14:52 | P.GSHP ---
History of Present Illness H&P Date: 10/25/21 Chief Complaint: Left ureteral calculus The patient is a 71-year-old white female with a neurogenic bladder secondary to multiple sclerosis. She has a suprapubic cystostomy tube. She was hospitalized in early August with UTI and sepsis, complicated by a 3 mm obstructing left distal ureteral calculus. She was also found to have multiple nonobstructing left renal calculi. She underwent cystoscopy with left ureteral stent insertion on 08/29/2021. The ureteral stent remains in place, and she has received antibiotic therapy. - Constitutional Constitutional: Reports weakness, Denies chills, Denies fever - Genitourinary (Female) Genitourinary: Reports as per HPI Past Medical History Past Medical History: Diabetes Mellitus, Deep Vein Thrombosis (DVT), Hyperlipidemia, Hypertension, Musculoskeletal Disorder, Neurologic Disorder, Thyroid Disorder Additional Past Medical History / Comment(s): Multiple sclerosis (diagnosed late ), L sided weakness with L hand contracture and unable to move bilateral lower extremities (tita lift to wheelchair), 2008 suprapubic catheter, currently being tx for bilateral buttock decubs with meihoney and dressings, UTIs, "border line DM", hypothyroid, bladder stones, bilateral cataracts. History of Any Multi-Drug Resistant Organisms: MRSA Date of last positivie culture/infection: 2011 MDRO Source:: Urine Past Surgical History: Bladder Surgery, Orthopedic Surgery, Tubal Ligation Additional Past Surgical History / Comment(s): EYE SURG AGE 6 for strabismus, ureteral surgery, cysto/lithotripsey, suprapubic catheter insertion, bilateral carpal releases, L leg eric d/t fx, L thumb sx, benign lesion removed from nose. Past Anesthesia/Blood Transfusion Reactions: No Reported Reaction Past Psychological History: No Psychological Hx Reported Past Alcohol Use History: None Reported Past Drug Use History: None Reported - Past Family History Mother Family Medical History: No Reported History Father Family Medical History: Coronary Artery Disease (CAD), Diabetes Mellitus Medications and Allergies Home Medications Medication Instructions Recorded Confirmed Type Gabapentin 600 mg PO QID 04/27/16 01/12/19 History Levothyroxine Sodium [Synthroid] 200 mcg PO DAILY 02/24/17 01/12/19 History Fesoterodine Fumarate [Toviaz] 4 mg PO DAILY 08/18/18 01/12/19 History Fluconazole [Diflucan] 100 mg PO DAILY 08/18/18 01/12/19 History Lactulose 20 gm PO BID PRN 08/18/18 01/12/19 History Levothyroxine Sodium 25 mcg PO DAILY 08/18/18 01/12/19 History Melatonin 10 mg PO HS 08/18/18 01/12/19 History Aquoral Mucous Membrane 1 spray SL DAILY PRN 01/12/19 01/12/19 History Aspirin EC [Ecotrin] 325 mg PO DAILY 01/12/19 01/12/19 History Baclofen [Lioresal] 10 mg PO TID 01/12/19 01/12/19 History Cholecalciferol [Vitamin D3] 1,000 unit PO DAILY 01/12/19 01/12/19 History Nitrofurantoin Monohyd/M-Cryst 100 mg PO Q12HR #14 cap 01/12/19 Rx [Macrobid] Nystatin 100,000 Unit/ml Susp 30 ml PO BID 01/12/19 01/12/19 History [Mycostatin Oral Susp] Ocrevus Iv 300 mg IV Q180D 01/12/19 01/12/19 History Potassium Citrate [Urocit-K] 15 meq PO TID 01/12/19 01/12/19 History Renacidin Irrigation 50 ml IV TUFR 01/12/19 01/12/19 History Simvastatin [Zocor] 20 mg PO HS 01/12/19 01/12/19 History Trospium Chloride 20 mg PO BID 01/12/19 01/12/19 History traMADol HCL [Ultram] 50 mg PO TID PRN 01/12/19 01/12/19 History Allergies Allergy/AdvReac Type Severity Reaction Status Date / Time Sulfa (Sulfonamide Allergy Unknown Verified 01/12/19 11:31 Antibiotics) Surgical - Exam - General well developed, no distress, obese - Respiratory normal respiratory effort, clear to auscultation - Cardiovascular Rhythm: regular Abnormal Heart Sounds: no systolic murmur, no diastolic murmur, no rub, no S3 Gallop, no S4 Gallop, no click, no other - Abdomen SPC intact Abdomen: soft, non tender, no guarding, no rigid, no rebound - Psychiatric oriented to time, oriented to person, oriented to place, speech is normal, memory intact Results - Imaging CT scan - abdomen: report reviewed, image reviewed Assessment and Plan (1) Calculus of ureter Status: Acute Code(s): N20.1 - CALCULUS OF URETER SNOMED Code(s): 37805267 (2) Calculus of kidney Status: Acute Code(s): N20.0 - CALCULUS OF KIDNEY SNOMED Code(s): 80354818 Plan: Cystoscopy, left ureteral stent removal, left ureteroscopy with Holmium laser lithotripsy and possible stone basketing. The patient is aware of potential risks, which include anesthesia, bleeding, infection, and ureteral injury.
[2021-10-27 12:10] VITALS: BMI 38.9
[~2021-10-29 07:57] MED LIST changes: +AMPICILLIN 2,000 MG in SODIUM CHLORIDE 0.9% 100 ML IVPB PRN; -DEXAMETHASONE SOD PHOSPHATE 10 MG/ML 1 ML VIAL IV ONE; -GENTAMICIN 120 MG in SODIUM CHLORIDE 0.9% 100 ML IVPB ONE; +GENTAMICIN IVPB PRN; +HYDROmorphone 0.5 MG/0.5 ML SYRINGE IVP PRN; -HYDROmorphone 1 MG/ML 1 ML SYRINGE IVP PRN; +LIDOCAINE 1% (10MG/ML) FOR IV START INTRADERMA PRN; -LIDOCAINE 1% 20 ML VIAL (10MG/ML) FOR IV START INTRADERMA PRN; -MIDAZOLAM 2 MG/2 ML VIAL IV PRN; +SODIUM CHLORIDE 0.9% IVPB PRN
--- NOTE | 2021-10-29 10:16 | XR ---
EXAMINATION TYPE: XR KUB DATE OF EXAM: 10/29/2021 COMPARISON: NONE HISTORY: Pain TECHNIQUE: Single supine KUB image of the abdomen is obtained FINDINGS: Small bowel demonstrates no evidence for dilatation or air fluid levels. Gas and fecal material is seen in non-distended colon. No convincing evidence for pneumoperitoneum. Left-sided ureteral stent. No unusual calcifications. The lung bases are clear. The osseous structures are intact. IMPRESSION: 1. Overall nonobstructive bowel gas pattern.
[2021-10-29] MEDS ORDERED: ePHEDrine 50 MG/ML 1 ML AMP ONE (10:48)
[2021-10-29] MEDS ORDERED: PROPOFOL 10 MG/ML 20 ML VIAL IV ONE (10:48)
[2021-10-29] MEDS ORDERED: MIDAZOLAM 2 MG/2 ML VIAL ONE (10:48)
[2021-10-29] MEDS ORDERED: .fentaNYL (PF) 50 MCG/ML 2 ML AMP ONE (10:48)
[2021-10-29] MEDS ORDERED: PHENYLEPHRINE-0.9% NACL SYG 1,000 MCG/10 ML SYRINGE ONE (10:48)
--- NOTE | 2021-10-29 12:51 | FL ---
EXAMINATION TYPE: FL urography retrograde DATE OF EXAM: 10/29/2021 COMPARISON: NONE HISTORY: Left ureteral calculus TECHNIQUE: Fluoroscopy. FINDINGS: L URETERAL CALCULUS, 14SEC FL TIME IMPRESSION: As Above.
[2021-10-29 13:23] VITALS: TEMP 97.2
[2021-10-29 14:12] VITALS: RESP 18
[2021-10-29 14:30] VITALS: BP 106/63; PULSE 103
--- NOTE | 2021-11-03 16:50 | P.OP ---
Date of Procedure: 10/29/21 Preoperative Diagnosis: Left ureteral calculus, left renal calculi Postoperative Diagnosis: Same Procedure(s) Performed: Cystoscopy, left ureteroscopy with Holmium laser lithotripsy and stone basketing, left ureteral stent change Anesthesia: GETA Surgeon: Michael Gonsales Estimated Blood Loss (ml): 10 IV fluids (ml): 500 Pathology: none sent Condition: stable Disposition: PACU Indications for Procedure: The patient is a 71-year-old white female with a neurogenic bladder secondary to multiple sclerosis. She has a suprapubic cystostomy tube. She was hospitalized in early August with UTI and sepsis, complicated by a 3 mm obstructing left distal ureteral calculus. She was also found to have multiple nonobstructing left renal calculi. She underwent cystoscopy with left ureteral stent insertion on 08/29/2021. The ureteral stent remains in place, and she has received antibiotic therapy. Operative Findings: 1) Malpositioned SP tube. 2) Small left ureteral calculus, removed via stone basketing. 3) Multiple left renal calculi, fragmented completely. Description of Procedure: The patient was taken to the operating room and placed in the dorsolithotomy position, with legs supported in Noel stirrups. The suprapubic tube was noted to be exiting through the perineum, and it was therefore removed. The abdomen and external genitalia was prepped and draped sterilely, and an 18-[place] Morgan catheter was placed as a suprapubic tube. The catheter was clamped. The 30 lens was used to introduce the [address] cystoscopic sheath through the urethra and into the bladder under direct vision. The bladder was examined in its entirety. Both ureteral orifices were normal anatomic location and configuration. No tumors or foreign bodies were seen. The suprapubic tube was noted to enter the bladder at the anterior bladder dome. Grasping forceps were used to grasp the distal end of the left ureteral stent, which was removed along with the cystoscope. The Street semirigid ureteroscope was advanced into the bladder, and the left ureteral orifice was cannulated. The ureteroscope was slowly advanced under direct vision. A 3 mm midureteral calculus was seen, and removed using a 1.9-[place] nitinol basket. The ureteroscope was advanced up to the UPJ. No additional ureteral calculi were seen. A 0.035 inch Glidewire was passed through the ureteroscope and into the left renal pelvis. The ureteroscope was removed, and the Street Galleonra flexible ureteroscope was passed over the wire, up to the left renal pelvis. Each calyx was examined. Multiple calculi were seen measuring up to 6 mm in size. The 272 micron Holmium laser probe was passed through the ureteroscope, and lithotripsy was performed. All calculi seen were fragmented completely, leaving no residual calculus fragments larger than the size of the laser fiber tip. The Glidewire was then passed through the ureteroscope, which was slowly withdrawn under direct vision. There was no evidence of ureteral trauma. The Glidewire was backloaded into the cystoscope, which was passed into the bladder. A 24 cm, 6-[place] double-J ureteral stent was placed over the wire. Proper stent positioning was verified fluoroscopically and endoscopically. The cystoscope was removed. The suprapubic tube was unclamped. The bladder was emptied and the cystoscope removed. The patient tolerated the procedure well and was taken to the recovery room in stable condition. [facility] Report: Procedure Acuity: Elective Stone Size and Location: 3 mm left ureteral calculus. Multiple left renal calculi measuring up to 6 mm. Ureteral Dilation: No Ureteral Access Sheath Used: No Stone Sent for Analysis: No All Stones/Fragments Were Removed with a Basket: No Complications: No Preoperative Antibiotics Given: Yes Stent Placed: Yes If Stent Placed, Was String Left Attached: No If Stent Placed, When is it to be Removed: 6 weeks Discharge Medications: None
== END 2021-10-29 15:17 | disposition home or self-care (01) ==
LOC: OR 07:57
PROVIDERS: ATTEND Urology
DX: N20.1 Calculus of ureter (principal); E11.9 Type 2 diabetes mellitus without complications; E78.5 Hyperlipidemia, unspecified; I10 Essential (primary) hypertension; E03.9 Hypothyroidism, unspecified; G35 Multiple sclerosis; N31.9 Neuromuscular dysfunction of bladder, unspecified; Z86.718 Personal history of other venous thrombosis and embolism; Z87.440 Personal history of urinary (tract) infections; Z79.899 Other long term (current) drug therapy; Z88.2 Allergy status to sulfonamides
CPT/HCPCS: 74420; 74018; 52356; C1769; J2250; J2405; J3010; J1580; J0290; J2370; J2704